=== PATIENT | female | born 1960 | race African-American/Black ===

== ENCOUNTER 2016-09-11 21:23 | Emergency (ER) | payer OTHER ==
[~2016-09-11] VITALS: Ht 172.7 cm; Wt 101.6 kg
[~2016-09-11 21:23] MED LIST: AMLODIPINE BESY10 MG ORAL; AMLODIPINE BESYL5 MG ORAL; ASPIRIN-LOW81 MG ORAL; AZITHROMYCIN250 MG ORAL; CARISOPRODOL350 MG ORAL; CIPROFLOXACIN500 M2 ORAL; CITALOPRAM HBR10 M1 ORAL; GUAIFENESIN-CO118 M1 ORAL; IBUPROFEN600 MG ORAL; IMDUR30 MG ORAL; LOVASTATIN40 MG ORAL; METRONIDAZOLE500 MG ORAL; NAPROXEN500 M2 ORAL; NORCO 5-325 TA1 EAC1 ORAL; NORCO1 E1 ORAL; OMEPRAZOLE20 M3 ORAL; OMEPRAZOLE40 M1 ORAL; PERCOCET 5-3251 EACH ORAL; PROPRANOLOL HCL10 MG ORAL; PROTONIX40 MG ORAL; RANITIDINE HCL150 M1 ORAL; ROBAXIN-750750 MG PO; SOMA350 MG PO; TYLENOL WITH C1 EACH ORAL; VASOTEC20 MG ORAL; ZOFRAN4 MG/5 ML ORAL; ZOLPIDEM TARTRAT5 MG ORAL
[2016-09-11] MEDS ORDERED: NS 55ml IV ONE (21:48)
[2016-09-11 22:01] LABS: APPEARANCE,URINE CLEAR; KETONES,URINE NEGATIVE (NEGATIVE); LEUKOCYTE ESTERASE ,URINE 3+ (NEGATIVE); NITRITE,URINE NEGATIVE (NEGATIVE); PH,URINE 6.5 (4.5-8.0); PROTEIN,URINE 2+ (NEGATIVE); UROBILINOGEN,URINE NORMAL MG/DL (0.0-1.0)
[2016-09-11 22:17] LABS: BACTERIA,URINE MODERATE /HPF; SQUAMOUS EPITHELIAL CELL,UR FEW /LPF (NONE/OCC)
[2016-09-11 22:18] LABS: YEAST,URINE FEW /HPF
[2016-09-11] MEDS ORDERED: Morphine Sulfate 4mg/ml Inj IVP ONE (22:45)
[2016-09-11 23:15] VITALS: BP 157/95
[2016-09-11 23:16] LABS: BASOPHILS % (AUTO) 0.7 % (0.0-2.0); EOSINOPHILS % (AUTO) 1.9 % (0.0-3.0); LYMPHOCYTES % (AUTO) 34.1 % (20.0-45.0); MEAN CORPUSCULAR HEMOGLOBIN 31.7 PG (27.0-31.0); MEAN CORPUSCULAR HGB CONC 34.6 G/DL (32.0-36.0); MEAN CORPUSCULAR VOLUME 92 FL (80-99); MONOCYTES % (AUTO) 5.3 % (1.0-10.0); PLATELET COUNT 243 K/UL (150-450); RED BLOOD COUNT 4.54 M/UL (4.20-5.40); RED CELL DISTRIBUTION WIDTH 11.8 % (11.6-14.8); WHITE BLOOD COUNT 9.1 K/UL (4.8-10.8)
[2016-09-11 23:26] LABS: ALANINE AMINOTRANSFERASE 15 U/L (3-33); ALBUMIN/GLOBULIN RATIO 1.7 (1.0-2.7); ANION GAP 14 (5-15); ASPARTATE AMINO TRANSFERASE 15 U/L (5-40); CALCIUM 9.4 mg/dL (8.6-10.2); CARBON DIOXIDE 30 mEQ/L (20-30); CHLORIDE 96 mEQ/L (98-107); CREATININE 0.9 mg/dL (0.5-0.9); GLOMERULAR FILTRATION RATE > 60 mL/min (>60); HEMOLYSIS 11; LIPASE 110 U/L (< 60); POTASSIUM 3.8 mEQ/L (3.4-4.9); SODIUM 140 mEQ/L (135-145); TOTAL PROTEIN 7.1 g/dL (6.6-8.7); TROPONIN I < 0.30 ng/mL (<=0.30)
[2016-09-12] VITALS (7 sets, daily range): BP systolic 126–153; BP diastolic 67–92
[2016-09-12] MEDS ORDERED: metroNIDAZOLE 500mg 100 ML IVPB ONE
[2016-09-12] MEDS ORDERED: HYDROmorphone 1mg/ml Carpuject ONE ×2 (00:11→06:22)
[2016-09-12] MEDS ORDERED: DiphenhydrAMINE 50mg/ml Inj ONE ×2 (00:12→06:22)
--- NOTE | 2016-09-12 00:45 | Emergency Room Report ---
History of Present Illness General Chief Complaint: Abdominal Pain Source: Patient Present Illness HPI 55 YO F with epigastric pain for 1 day. No change with eating. 04/08, non radiating. No nausea/vomiting or diarrhea or urinary complaints. History of chronic pancreatitis with multiple admissions. CT Apr 2016: "Findings compatible with mild acute pancreatitis involving the pancreatic tail. No evidence of associated necrosis, pseudocyst, or abscess. Findings overall less severe than on previous exam. Allergies: Coded Allergies: No Known Allergies (Unverified , 01/29/14) Patient History Past Medical History: other - pancreatitis, HTN Past Surgical History: none Pertinent Family History: none Social History: Denies: alcohol use, drug use, smoking Now: No Reviewed Nursing Documentation: PMH: Agreed, PSxH: Agreed Nursing Documentation-PMH Hx Cardiac Problems: Yes Hx Hypertension: Yes Hx Diabetes: Yes Hx Cancer: No Hx Gastrointestinal Problems: Yes - pancreatitis Hx Neurological Problems: No Review of Systems All Other Systems: negative except mentioned in HPI Physical Exam Vital Signs Date Time Temp Pulse Resp B/P Pulse Ox O2 Delivery O2 Flow Rate FiO2 09/11/16 21:27 97.9 98 16 153/94 100 Room Air Sp02 EP Interpretation: reviewed, normal General Appearance: normal inspection, well appearing, no apparent distress, alert, GCS 15, non-toxic, obese Head: normocephalic, atraumatic Eyes: bilateral eye EOMI, bilateral eye PERRL ENT: normal ENT inspection, hearing grossly normal, normal voice Neck: normal inspection, full range of motion, supple, no bony tend Respiratory: normal inspection, lungs clear, normal breath sounds, no respiratory distress, no retraction, no wheezing Cardiovascular #1: regular rate, rhythm, no edema Gastrointestinal: normal inspection, normal bowel sounds, soft, no guarding, no hernia, other - Mild epigastric ttp Genitourinary: no CVA tenderness Musculoskeletal: normal inspection, back normal, normal range of motion, Itzel' s Sign negative Neurologic: normal inspection, alert, oriented x3, responsive, claim attorney III-XII nml as tested, motor strength/tone normal, speech normal Psychiatric: normal inspection, judgement/insight normal, mood/affect normal Skin: normal inspection, normal color, no rash Lymphatic: normal inspection Medical Decision Making Diagnostic Impression: Primary Impression: Pancreatitis Qualified Codes: K86.1 - Other chronic pancreatitis Additional Impression: Abdominal pain Qualified Codes: R10.84 - Generalized abdominal pain ER Course Lipase elevated not as elevated as previous UA c/w UTI Patient required multiple rounds of IV narcotics IV Rocephin given for UTI I have low suspicion for abscess/pseudocyst given reassurance from Apr [address] CT and afebrile, no leukocytosis, normal H&H Endorsed to Dr Quintero for med surg admission at 116am Last Vital Signs Date Time Temp Pulse Resp B/P Pulse Ox O2 Delivery O2 Flow Rate FiO2 09/11/16 23:29 97.9 09/11/16 23:15 85 21 157/95 100 Room Air Status: improved Disposition: ADMITTED INPATIENT Condition: Serious Referrals: [facility],REFERRING (PCP) MALATHI CORDERO M.D. Sep 12, 2016 00:45
[2016-09-12] MEDS ORDERED: cefTRIAXone 1 GM in NS 55 ML IVPB ONE (01:15)
[2016-09-12] MEDS ORDERED: HYDROmorphone 1 MG, DiphenhydrAMINE 25 MG in NS 55 ML IVPB ONE ×4 (06:30)
[2016-09-12] MEDS ORDERED: Mylanta II UD 30ml ORAL PRN (08:00)
[2016-09-12] MEDS ORDERED: Nitroglycerin Subl 0.4mg tab (Bottle Of 25) SL PRN (08:00)
[2016-09-12] MEDS ORDERED: Morphine Sulfate 2mg/ml Inj IVP PRN (08:00)
[2016-09-12] MEDS ORDERED: D5 1/2NS 1,000 ML IV SCH (09:00)
[2016-09-12] MEDS ORDERED: Propranolol 10mg tab ORAL SCH (09:00)
[2016-09-12] MEDS ORDERED: Heparin 5000 units/ml inj SUBQ SCH (11:30)
[2016-09-12] MEDS ORDERED: Piperacillin/Tazobactam 3.375 GM in NS 110 ML IVPB SCH (14:00)
[2016-09-12] MEDS ORDERED: Zolpidem 5mg tab ORAL PRN (21:00)
[2016-09-12] MEDS ORDERED: Miralax 17gm pkt ORAL PRN (21:00)
--- NOTE | 2016-09-17 11:48 | Cardiology Report ---
APPROVED REPORT EKG Measurement Heart [id number] Normal sinus rhythm Nonspecific T wave abnormality Prolonged QT Abnormal ECG
== END 2016-09-12 13:04 | disposition other institution (70) ==
LOC: EMR 21:47
DX: K86.1 Other chronic pancreatitis (principal); R10.84 Generalized abdominal pain; E11.9 Type 2 diabetes mellitus without complications; I10 Essential (primary) hypertension
CPT/HCPCS: 36415; 80053; 81003; 83690; 84484; 85025; 87086; 93005; 99285; J0696; J1170; J1200; J1644; J2270; J2405

== ENCOUNTER 2016-09-29 09:44 | Emergency (ER) | payer OTHER ==
[~2016-09-29] VITALS: Ht 175.3 cm; Wt 95.3 kg
[2016-09-29] MEDS ORDERED: Morphine Sulfate 4mg/ml Inj IVP ONE (11:15)
[2016-09-29 11:44] LABS: BASOPHILS % (AUTO) 0.6 % (0.0-2.0); EOSINOPHILS % (AUTO) 0.9 % (0.0-3.0); LYMPHOCYTES % (AUTO) 32.5 % (20.0-45.0); MEAN CORPUSCULAR HEMOGLOBIN 30.9 PG (27.0-31.0); MEAN CORPUSCULAR VOLUME 94 FL (80-99); MONOCYTES % (AUTO) 6.9 % (1.0-10.0); NEUTROPHILS % (AUTO) 59.1 % (45.0-75.0); PLATELET COUNT 291 K/UL (150-450); RED BLOOD COUNT 4.89 M/UL (4.20-5.40); RED CELL DISTRIBUTION WIDTH 11.8 % (11.6-14.8)
[2016-09-29 11:45] LABS: APPEARANCE,URINE SLIGHTLY CLOUDY; KETONES,URINE NEGATIVE (NEGATIVE); LEUKOCYTE ESTERASE ,URINE 3+ (NEGATIVE); NITRITE,URINE NEGATIVE (NEGATIVE); PH,URINE 6 (4.5-8.0); PROTEIN,URINE 1+ (NEGATIVE); UROBILINOGEN,URINE NORMAL MG/DL (0.0-1.0)
[2016-09-29 12:17] LABS: ALANINE AMINOTRANSFERASE 18 U/L (3-33); ALBUMIN/GLOBULIN RATIO 1.3 (1.0-2.7); ANION GAP 18 (5-15); ASPARTATE AMINO TRANSFERASE 13 U/L (5-40); CALCIUM 9.7 mg/dL (8.6-10.2); CARBON DIOXIDE 25 mEQ/L (20-30); CHLORIDE 101 mEQ/L (98-107); GLOMERULAR FILTRATION RATE > 60 mL/min (>60); HEMOLYSIS 4; LIPASE 95 U/L (< 60); POTASSIUM 4.1 mEQ/L (3.4-4.9); SODIUM 144 mEQ/L (135-145)
[2016-09-29 12:20] LABS: SQUAMOUS EPITHELIAL CELL,UR MANY /LPF (NONE/OCC); WBC,URINE 20-30 /HPF (0 - 2)
[2016-09-29 12:21] LABS: BACTERIA,URINE MODERATE /HPF
[2016-09-29] MEDS ORDERED: LEVOFLOXACIN750 MG ORAL (12:33)
--- NOTE | 2016-09-29 12:53 | Emergency Room Report ---
History of Present Illness General Chief Complaint: Abdominal Pain Source: Patient Present Illness HPI 55YOF here with "same pain since I was here last" in Mid-august, allegedly from "chronic pancreatitis." I admitted this patient mid-August for "chronic pancreatitis" but patient walked out of ER before she was taken upstairs. She was formally admitted to [facility] but the hospitalist did not see patient or write a note. Patient walked out of ER before ER physician able to provide Abx for UTI for which she was also being treated/admitted. States had had same pain now, mostly left sided, now radiating to left flank assoc with dysuria, polyuria. Denies fever/chills, nausea/vomtiing, diarrhea. Appetite is normal. Allergies: Coded Allergies: No Known Allergies (Unverified , 01/29/14) Patient History Past Medical History: see triage record, old chart reviewed Past Surgical History: none Pertinent Family History: none Social History: Denies: alcohol use, drug use, smoking Now: No Immunizations: UTD Reviewed Nursing Documentation: PMH: Agreed, PSxH: Agreed Nursing Documentation-PMH Past Medical History: No History, Except For Hx Hypertension: Yes Hx Diabetes: Yes Hx Cancer: No Hx Gastrointestinal Problems: Yes - pancreatitis Hx Neurological Problems: No Review of Systems All Other Systems: negative except mentioned in HPI Physical Exam Vital Signs Date Time Temp Pulse Resp B/P Pulse Ox O2 Delivery O2 Flow Rate FiO2 09/29/16 10:01 97.9 109 16 131/75 98 Room Air Sp02 EP Interpretation: reviewed General Appearance: normal inspection, well appearing, no apparent distress, alert, GCS 15, non-toxic, obese Head: normocephalic, atraumatic Eyes: bilateral eye EOMI, bilateral eye PERRL ENT: normal ENT inspection, hearing grossly normal, normal voice Neck: normal inspection, full range of motion, supple, no bony tend Respiratory: normal inspection, lungs clear, normal breath sounds, no respiratory distress, no retraction, no wheezing Cardiovascular #1: regular rate, rhythm, no edema Gastrointestinal: normal inspection, normal bowel sounds, non tender, soft, no guarding, no hernia Genitourinary: CVA tenderness (L) Musculoskeletal: normal inspection, back normal, normal range of motion, Itzel' s Sign negative Neurologic: normal inspection, alert, oriented x3, responsive, services program manager III-XII nml as tested, motor strength/tone normal, speech normal Psychiatric: normal inspection, judgement/insight normal, mood/affect normal Skin: normal inspection, normal color, no rash Lymphatic: normal inspection Medical Decision Making Diagnostic Impression: Primary Impression: Pyelonephritis ER Course Left sided abd/flank pain VSS. Afebrile. Does not appear septic based on HPI, exam, review of serial VS Labs: Elevated lipase however downtrended from August - and unreliable to trend/ follow. CT recently did not show pseudocyst or abscess Leuks normal. H&H normal. UA grossly infected Possibly now pyelo from untreated UTI from mid-August after patient left AMA Improved after analgesia and IV Levofloxacin here Urine Cx pending DC with 9 days of oral levo Does not warrant admission for pyelo as is tolerating PO, no systemic signs or symptoms Advised GI followup for chronic pancreatitis DC home Last Vital Signs Date Time Temp Pulse Resp B/P Pulse Ox O2 Delivery O2 Flow Rate FiO2 09/29/16 10:01 97.9 109 16 131/75 98 Room Air Status: improved Disposition: HOME, SELF-CARE Condition: Improved Scripts Levofloxacin* (LEVOFLOXACIN*) 750 Mg Tablet 750 MG ORAL DAILY for 9 Days, #9 TAB Prov: MALATHI CORDERO M.D. 09/29/16 Patient Instructions: Pyelonephritis, Adult, [id number] Additional Instructions: - Take ALL antibiotics at home as prescribed - once daily for next 9 days at home. - Follow up with your primary care doctor for a GI referral for chronic pancreatitis MALATHI CORDERO M.D. Sep 29, 2016 12:53
[2016-09-29 14:00] VITALS: BP 125/70
== END 2016-09-29 14:36 | disposition home or self-care (01) ==
LOC: EMR 10:44
DX: N12 Tubulo-interstitial nephritis, not specified as acute or chronic (principal); K86.1 Other chronic pancreatitis; R10.9 Unspecified abdominal pain; I10 Essential (primary) hypertension; E11.9 Type 2 diabetes mellitus without complications
CPT/HCPCS: 36415; 80053; 81003; 83690; 85025; 87086; 87181; 96360; 96374; 99284; J1956; J2270

== ENCOUNTER 2018-08-19 10:44 | Inpatient (IN) | payer OTHER ==
[~2018-08-19] VITALS: Ht 175.3 cm; Wt 94.9 kg
[~2018-08-19 10:44] MED LIST changes: +LEVOFLOXACIN750 MG ORAL
[2018-08-19] MEDS ORDERED: UNOBMED (10:51)
--- NOTE | 2018-08-19 11:06 | NUR ---
ED Nurse Note: Pt came in from home due to RUQ abdominal pain with n/v/d x 3 days. Pain 10/10. Emesis is saliva and clear fluid. Last bowel movement was this morning. Pt has hx of Pancreatitis and suspecting "I think it is pancreatitis". AOx4, VSS bradley. Will cont to monitor.
--- NOTE | 2018-08-19 11:19 | Emergency Room Report ---
History of Present Illness General Chief Complaint: Abdominal Pain Source: Patient Present Illness HPI Patient has a history of hypertension and diabetes. Patient presents with abdominal pain and vomiting. She can't keep down liquids. She states when this happened a year ago she was told she had pancreatitis. She denies any fevers or chills. She's not vomiting blood. She denies melena. There is no dysuria. Pain is 10/10 at this time epigastric, not radiating. No chest pain, palpitations, dysuria, abdominal pain, shortness of breath, depression, visual changes, headache. Patient has a history of hypertension and diabetes. She is not taking medication for her diabetes. Patient with similar presentation admitted in April 2016. Discharge diagnoses: 1. Acute pancreatitis. 2. Hypertension. 3. Obesity. 4. Seizure disorder. Allergies: Coded Allergies: No Known Allergies (Unverified , 01/29/14) Patient History Past Medical History: see triage record, old chart reviewed Social History: Reports: smoking; Denies: alcohol use, drug use - In the past Social History Narrative Lives by herself Last Menstrual Period: menopause Reviewed Nursing Documentation: PMH: Agreed; PSxH: Agreed Nursing Documentation-PMH Past Medical History: No History, Except For Hx Hypertension: Yes Hx Diabetes: Yes Hx Cancer: No Hx Gastrointestinal Problems: Yes - pancreatitis Hx Neurological Problems: No Review of Systems All Other Systems: negative except mentioned in HPI Physical Exam Vital Signs Date Time Temp Pulse Resp B/P (MAP) Pulse Ox O2 Delivery O2 Flow Rate FiO2 08/19/18 10:48 97.5 95 18 159/98 100 Room Air Sp02 EP Interpretation: reviewed, normal General Appearance: well appearing, no apparent distress, GCS 15 Head: normocephalic Eyes: bilateral eye normal inspection, bilateral eye PERRL ENT: moist mucus membranes Neck: supple Respiratory: lungs clear, normal breath sounds Cardiovascular #1: regular rate, rhythm Cardiovascular #2: 2+ radial (R) Gastrointestinal: normal inspection, no mass, non-distended, no guarding, no rebound, tenderness - Epigastric, decreased bowel sounds Genitourinary: no CVA tenderness Musculoskeletal: back normal, normal range of motion Neurologic: alert, oriented x3, grossly normal Psychiatric: depressed affect Skin: normal inspection, warm/dry Medical Decision Making Diagnostic Impression: Primary Impression: Acute pancreatitis Qualified Codes: K85.90 - Acute pancreatitis without necrosis or infection, unspecified Additional Impression: Dehydration ER Course Patient presents with epigastric pain nausea and vomiting. Differential includes gastritis, pancreatitis, gallbladder disease, gastroenteritis amongst others. Evaluation will be with labs, EKG and chest and abdominal films. Patient will be treated with IV hydration, Zofran Pepcid and Dilaudid. Chest x-ray no infiltrates. Abdominal film using bowel gas pattern. CBC normal with elevated hemoglobin and hematocrit. CMP unremarkable. Lipase elevated. Still requiring analgesia. Retching has improved. Admit med Dr. Escobar. Laboratory Tests Test 08/19/18 11:15 08/19/18 12:00 White Blood Count 10.3 K/UL (4.8-10.8) Red Blood Count 5.26 M/UL (4.20-5.40) Hemoglobin 16.3 G/DL (12.0-16.0) H Hematocrit 48.9 % (37.0-47.0) H Mean Corpuscular Volume 93 FL (80-99) Mean Corpuscular Hemoglobin 31.1 PG (27.0-31.0) H Mean Corpuscular Hemoglobin Concent 33.4 G/DL (32.0-36.0) Red Cell Distribution Width 11.3 % (11.6-14.8) L Platelet Count 286 K/UL (150-450) Mean Platelet Volume 6.9 FL (6.5-10.1) Neutrophils (%) (Auto) 64.3 % (45.0-75.0) Lymphocytes (%) (Auto) 27.7 % (20.0-45.0) Monocytes (%) (Auto) 7.2 % (1.0-10.0) Eosinophils (%) (Auto) 0.1 % (0.0-3.0) Basophils (%) (Auto) 0.7 % (0.0-2.0) Prothrombin Time 10.1 SEC (9.30-11.50) Prothrombin Time INR 1.0 (0.9-1.1) PTT 24 SEC (23-33) Sodium Level 138 MMOL/L (136-145) Potassium Level 3.6 MMOL/L (3.5-5.1) Chloride Level 101 MMOL/L (98-107) Carbon Dioxide Level 26 MMOL/L (21-32) Anion Gap 11 mmol/L (5-15) Blood Urea Nitrogen 14 mg/dL (7-18) Creatinine 1.1 MG/DL (0.55-1.30) Estimate Glomerular Filtration Rate > 60 mL/min (>60) Glucose Level 134 MG/DL (74-106) H Calcium Level 10.4 MG/DL (8.5-10.1) H Total Bilirubin 0.6 MG/DL (0.2-1.0) Aspartate Amino Transferase (AST) 12 U/L (15-37) L Alanine Aminotransferase (ALT) 28 U/L (12-78) Alkaline Phosphatase 70 U/L (46-116) Troponin I 0.000 ng/mL (0.000-0.056) Total Protein 9.0 G/DL (6.4-8.2) H Albumin 4.5 G/DL (3.4-5.0) Globulin 4.5 g/dL Albumin/Globulin Ratio 1.0 (1.0-2.7) Lipase 658 U/L (73-393) H Urine Color Pale yellow Urine Appearance Clear Urine pH 7 (4.5-8.0) Urine Specific [place] 1.005 (1.005-1.035) Urine Protein 2+ (NEGATIVE) H Urine Glucose (UA) Negative (NEGATIVE) Urine Ketones Negative (NEGATIVE) Urine Blood 3+ (NEGATIVE) H Urine Nitrite Negative (NEGATIVE) Urine Bilirubin Negative (NEGATIVE) Urine Urobilinogen Normal MG/DL (0.0-1.0) Urine Leukocyte Esterase Negative (NEGATIVE) Urine RBC 5-10 /HPF (0 - 2) H Urine WBC 0 /HPF (0 - 2) Urine Squamous Epithelial Cells Moderate /LPF (NONE/OCC) H Urine Bacteria Occasional /HPF (NONE) EKG Diagnostic Results Rate: normal Rhythm: NSR ST Segments: no acute changes - Right bundle-branch bloc left atrial enlargement left axis deviation Rhythm Strip Diag. Results EP Interpretation: yes Rhythm: NSR, no PVC's, no ectopy Chest X-Ray Diagnostic Results Chest X-Ray Diagnostic Results : Chest X-Ray Ordered: Yes # of Views/Limited/Complete: 1 View Indication: Other EP Interpretation: Yes Interpretation: no consolidation, no effusion, no pneumothorax Impression: No acute disease Electronically Signed by: Electronically signed by Mark Monique MD Other X-Ray Diagnostic Results Other X-Ray Diagnostic Results : X-Ray ordered: Abdomen # of Views/Limited Vs Complete: 1 View Indication: Pain Interpretation: nonspecific bowel gas, no sbo, other - No masses or calcifications Impression: No acute disease Electronically Signed by: Electronically signed by Mark Monique MD Last Vital Signs Date Time Temp Pulse Resp B/P (MAP) Pulse Ox O2 Delivery O2 Flow Rate FiO2 08/19/18 10:48 97.5 95 18 159/98 100 Room Air Status: improved Disposition: ADMITTED INPATIENT Condition: Serious Mark Monique MD Aug 19, 2018 11:19
[2018-08-19] MEDS ORDERED: DiphenhydrAMINE 50mg/ml Inj IVP ONE (11:30)
[2018-08-19] MEDS ORDERED: Metoclopramide 10mg/2ml Inj IVP ONE (11:30)
[2018-08-19] MEDS ORDERED: Hydromorphone 0.5mg/0.5ml inj IVP ONE ×2 (11:30→13:15)
[2018-08-19 11:31] LABS: BASOPHILS % (AUTO) 0.7 % (0.0-2.0); EOSINOPHILS % (AUTO) 0.1 % (0.0-3.0); HEMATOCRIT 48.9 % (37.0-47.0); HEMOGLOBIN 16.3 G/DL (12.0-16.0); LYMPHOCYTES % (AUTO) 27.7 % (20.0-45.0); MEAN CORPUSCULAR VOLUME 93 FL (80-99); MONOCYTES % (AUTO) 7.2 % (1.0-10.0); NEUTROPHILS % (AUTO) 64.3 % (45.0-75.0); PLATELET COUNT 286 K/UL (150-450); RED BLOOD COUNT 5.26 M/UL (4.20-5.40); RED CELL DISTRIBUTION WIDTH 11.3 % (11.6-14.8); WHITE BLOOD COUNT 10.3 K/UL (4.8-10.8)
[2018-08-19 11:36] VITALS: BP 160/86
[2018-08-19 11:36] LABS: ANION GAP 11 mmol/L (5-15); BLOOD UREA NITROGEN 14 mg/dL (7-18); CALCIUM 10.4 MG/DL (8.5-10.1); CARBON DIOXIDE 26 MMOL/L (21-32); CHLORIDE 101 MMOL/L (98-107); CREATININE 1.1 MG/DL (0.55-1.30); POTASSIUM 3.6 MMOL/L (3.5-5.1); SODIUM 138 MMOL/L (136-145)
[2018-08-19 11:41] LABS: ALANINE AMINOTRANSFERASE 28 U/L (12-78); ALBUMIN 4.5 G/DL (3.4-5.0); ALKALINE PHOSPHATASE 70 U/L (46-116); ASPARTATE AMINO TRANSFERASE 12 U/L (15-37); BILIRUBIN,TOTAL 0.6 MG/DL (0.2-1.0)
[2018-08-19 12:29] LABS: APPEARANCE,URINE CLEAR; BILIRUBIN, URINE NEGATIVE (NEGATIVE); COLOR,URINE PALE YELLOW; GLUCOSE, URINE (UA) NEGATIVE (NEGATIVE); KETONES,URINE NEGATIVE (NEGATIVE); LEUKOCYTE ESTERASE ,URINE NEGATIVE (NEGATIVE); NITRITE,URINE NEGATIVE (NEGATIVE); PH,URINE 7 (4.5-8.0); PROTEIN,URINE 2+ (NEGATIVE); UROBILINOGEN,URINE NORMAL MG/DL (0.0-1.0)
--- NOTE | 2018-08-19 12:52 | Diagnostic Imaging Report ---
Indication: Abdominal pain Technique: Supine view of the abdomen Comparison: none Findings: Bowel gas pattern is unremarkable. There are degenerative changes of the lumbar spine. No unusual calcifications or masses Impression: No acute process
--- NOTE | 2018-08-19 12:53 | Diagnostic Imaging Report ---
Indication: Shortness of breath Technique: One view of the chest Comparison: 06/20/2015 Findings: Lungs and pleural spaces are clear. Heart size is normal Impression: No acute process
--- NOTE | 2018-08-19 13:10 | NUR ---
ED Nurse Note: Pt states " pain is still the same", ERMD notified. Awaiting for further orders.
[2018-08-19 13:43] VITALS: BP 169/95
[2018-08-19] MEDS ORDERED: HYDROmorphone 1mg/ml Carpuject IVP ONE (15:15)
[2018-08-19 15:28] VITALS: BP 159/93
--- NOTE | 2018-08-19 16:06 | NUR ---
ED Nurse Note: Reprot given to Neda Brito at ext [phone]. Pt to be transfered to room 314-1 on [facility] per protocol with all belongings.
--- NOTE | 2018-08-19 16:30 | NUR ---
NURSE NOTES: Patient arrived on unit via wheelchair. Transferred to bed without incident, tolerated well Patient is stable, no s/s acute distress. Patient complains of pain. Awaiting orders from MD, will give pain medication as ordered. Skin is clean, dry, and intact. All belongings accounted for. Patient oriented to room, unit, call light, and nurses. Patient is comfortable in bed in locked position and call light within reach. Will continue to monitor.
[2018-08-19 16:37] VITALS: BP 146/82
[2018-08-19] MEDS ORDERED: DiphenhydrAMINE 50mg/ml Inj IVP PRN (16:45)
[2018-08-19] MEDS ORDERED: Norco 5mg/325mg tab ORAL PRN (16:45)
[2018-08-19] MEDS: D5NS 1,000 ML IV SCH (17:40)
--- NOTE | 2018-08-19 18:00 | NUR ---
NURSE NOTES: abdominal ultrasound being done at bedside. patient is stable. Will continue to monitor.
--- NOTE | 2018-08-19 19:54 | NUR ---
HAND-OFF: Report given to Rowdy LIU. Patient is stable.
--- NOTE | 2018-08-19 19:59 | NUR ---
NURSE NOTES: Received report from NOE Brito. Patient A&Ox4, on room air. No signs of distress or labored breathing. IV intact, patent, and infusing IV fluids. Complaining of pain. Bed in lowest position with call light in reach. Will continue with plan of care.
[2018-08-19 20:00] VITALS: BP 138/85
[2018-08-19] MEDS: Heparin 5000 units/ml inj SUBQ SCH (21:47)
[2018-08-19] MEDS ORDERED: HYDROmorphone 1mg/ml Carpuject IVP SCH (22:45)
[2018-08-20] VITALS: BP 162/90
[2018-08-20] MEDS: D5NS 1,000 ML IV SCH ×3 (02:51→15:33)
--- NOTE | 2018-08-20 08:03 | NUR ---
HAND-OFF: Report given to NOE Hazel.
--- NOTE | 2018-08-20 08:08 | NUR ---
CASE MANAGEMENT:REVIEW 57 YR OLD FEMALE FROM HOME CC: ABDOMINAL PAIN, N/V X3 DAYS SI: ACUTE PANCREATITIS 97.5 95 18 159/98 100% ON RA LIPASE+658 IS: IV REGLAN X1 IV PEPCID X1 IV DILAUDID X2 1L NS BOLUS X2 IV BENADRYL X1 CHEST AND ABDOMINAL XRAY : TO MED[facility]
[2018-08-20 08:09] LABS: EOSINOPHILS % (AUTO) 0.3 % (0.0-3.0); HEMATOCRIT 43.1 % (37.0-47.0); HEMOGLOBIN 14.8 G/DL (12.0-16.0); LYMPHOCYTES % (AUTO) 30.8 % (20.0-45.0); MEAN CORPUSCULAR VOLUME 93 FL (80-99); MONOCYTES % (AUTO) 8.2 % (1.0-10.0); NEUTROPHILS % (AUTO) 59.7 % (45.0-75.0); PLATELET COUNT 268 K/UL (150-450); RED BLOOD COUNT 4.62 M/UL (4.20-5.40); RED CELL DISTRIBUTION WIDTH 11.3 % (11.6-14.8); WHITE BLOOD COUNT 7.8 K/UL (4.8-10.8)
--- NOTE | 2018-08-20 08:12 | NUR ---
NURSE NOTES: Pt awake. Call light is in reach. No facial grimace of pain. Call light is in reach. Current plan of care will be followed. Commode placed at bedside by outgoing nurse, due to pt urinating in basin. Remains NPO
--- NOTE | 2018-08-20 08:28 | History & Physical ---
History and Physical History & Physicial seen and examined. Dictation completed today on 828 AM Brody Escobar MD Aug 20, 2018 08:28
--- NOTE | 2018-08-20 08:29 | General Progress Note ---
Assessment/Plan Status: stable Assessment/Plan Full Dictatino in progress 1- DC Dilaudid 2- Start Morphin PRN 3- Abd CT Subjective Allergies: Coded Allergies: No Known Allergies (Unverified , 01/29/14) Objective Last 24 Hour Vital Signs Date Time Temp Pulse Resp B/P (MAP) Pulse Ox O2 Delivery O2 Flow Rate FiO2 08/20/18 00:00 98.3 64 18 162/90 (114) 97 08/19/18 21:00 Room Air 08/19/18 20:00 98.2 65 18 138/85 (102) 96 08/19/18 16:37 98.3 66 18 146/82 (103) 96 08/19/18 16:37 Room Air 08/19/18 16:05 97.5 76 20 159/93 97 Room Air 08/19/18 15:37 97.5 08/19/18 15:28 76 20 159/93 97 08/19/18 13:43 97.5 66 21 169/95 100 Room Air 08/19/18 13:43 97.5 08/19/18 12:02 97.5 08/19/18 11:37 104 20 Room Air 08/19/18 11:36 97.5 104 20 160/86 100 Room Air 08/19/18 10:48 97.5 95 18 159/98 100 Room Air Intake and Output 08/19/18 08/20/18 19:00 07:00 Intake Total 1300 ml Balance 1300 ml Intake IV Total 1300 ml # Voids 3 5 Laboratory Tests 08/19/18 11:15: White Blood Count 10.3, Red Blood Count 5.26, Hemoglobin 16.3H, Hematocrit 48.9H , Mean Corpuscular Volume 93, Mean Corpuscular Hemoglobin 31.1H, Mean Corpuscular Hemoglobin Concent 33.4, Red Cell Distribution Width 11.3L, Platelet Count 286, Mean Platelet Volume 6.9, Neutrophils (%) (Auto) 64.3, Lymphocytes (%) (Auto) 27.7, Monocytes (%) (Auto) 7.2, Eosinophils (%) (Auto) 0.1, Basophils (%) (Auto) 0.7, Prothrombin Time 10.1, Prothromb Time International Ratio 1.0, Activated Partial Thromboplast Time 24, Sodium Level 138, Potassium Level 3.6, Chloride Level 101, Carbon Dioxide Level 26, Anion Gap 11, Blood Urea Nitrogen 14, Creatinine 1.1, Estimat Glomerular Filtration Rate > 60, Glucose Level 134H, Calcium Level 10.4H, Total Bilirubin 0.6, Aspartate Amino Transf (AST/SGOT) 12L, Alanine Aminotransferase (ALT/SGPT) 28, Alkaline Phosphatase 70, Troponin I 0.000, Total Protein 9.0H, Albumin 4.5, Globulin 4.5, Albumin/Globulin Ratio 1.0, Lipase 658H 08/19/18 12:00: Urine Color Pale yellow, Urine Appearance Clear, Urine pH 7, Urine Specific [place] 1.005, Urine Protein 2+H, Urine Glucose (UA) Negative, Urine Ketones Negative, Urine Blood 3+H, Urine Nitrite Negative, Urine Bilirubin Negative, Urine Urobilinogen Normal, Urine Leukocyte Esterase Negative, Urine RBC 5-10H, Urine WBC 0, Urine Squamous Epithelial Cells ModerateH, Urine Bacteria Occasional 08/20/18 06:46: White Blood Count 7.8, Red Blood Count 4.62, Hemoglobin 14.8, Hematocrit 43.1, Mean Corpuscular Volume 93, Mean Corpuscular Hemoglobin 32.1H, Mean Corpuscular Hemoglobin Concent 34.4, Red Cell Distribution Width 11.3L, Platelet Count 268, Mean Platelet Volume 6.6, Neutrophils (%) (Auto) 59.7, Lymphocytes (%) (Auto) 30.8, Monocytes (%) (Auto) 8.2, Eosinophils (%) (Auto) 0.3, Basophils (%) (Auto ) 1.0, Sodium Level [Pending], Potassium Level [Pending], Chloride Level [ Pending], Carbon Dioxide Level [Pending], Blood Urea Nitrogen [Pending], Creatinine [Pending], Estimat Glomerular Filtration Rate [Pending], Glucose Level [Pending], Calcium Level [Pending], Lipase [Pending], Amylase Level [ Pending] Height (Feet): 5 Height (Inches): 9.00 Weight (Pounds): 209 Brody Escobar MD Aug 20, 2018 08:29
[2018-08-20] MEDS ORDERED: Isovue-300 100ml vial INJ PRN (08:30)
[2018-08-20 08:38] LABS: AMYLASE 214 U/L (25-115); ANION GAP 12 mmol/L (5-15); BLOOD UREA NITROGEN 9 mg/dL (7-18); CALCIUM 8.8 MG/DL (8.5-10.1); CARBON DIOXIDE 24 MMOL/L (21-32); CHLORIDE 103 MMOL/L (98-107); CREATININE 0.9 MG/DL (0.55-1.30); POTASSIUM 3.5 MMOL/L (3.5-5.1); SODIUM 139 MMOL/L (136-145)
--- NOTE | 2018-08-20 09:06 | Diagnostic Imaging Report ---
Indication: Abdominal pain Technique: Lozano-scale and duplex images of the upper abdomen were obtained. Doppler interrogation of the pancreatic vessels Comparison: 05/09/2016, CT scan 05/18/2016 Findings: Gallbladder is unremarkable, without stones, wall thickening, nor pericholecystic fluid. Sonographic Shen's sign is negative. Common bile duct measures 3 mm in diameter. No intrahepatic biliary ductal dilatation. Liver demonstrates normal echogenicity, no focal abnormality. Portal vein and hepatic veins are patent. The pancreas is heterogeneous. The pancreatic duct is ectatic, measuring 5 mm in diameter. Spleen is unremarkable. Left kidney measures 12.5 cm in length. Right kidney measures 11.2 cm length. Both kidneys demonstrate normal echogenicity. There is no hydronephrosis. Small cysts are seen in the kidneys bilaterally, also demonstrated on prior CT scan.. Non-aneurysmal abdominal aorta . Impression: Somewhat heterogeneous pancreas. This may indicate acute pancreatitis, or could be related to prior episodes of pancreatitis. Correlate with laboratory and clinical findings Ectatic pancreatic duct, likely related to prior episodes of pancreatitis as well. Negative for gallstones or dilated bile ducts.
[2018-08-20] MEDS: Morphine Sulfate 2mg/ml Inj(IV/IM USE ONLY) IVP PRN ×2 (09:12→13:02)
[2018-08-20] MEDS: Pantoprazole Inj IVP SCH (09:13)
[2018-08-20] MEDS: Heparin 5000 units/ml inj SUBQ SCH ×2 (09:14→21:55)
[2018-08-20] MEDS: Metoclopramide 10mg/2ml Inj IVP PRN ×2 (10:47→18:11)
--- NOTE | 2018-08-20 12:50 | NUR ---
*-* INSURANCE *-* CLINICALS, REVIEW AND INTERQUAL FAXED TO: LOCATED WITHIN [facility]\ P- [phone] F- [phone]...( FAX THE REVIEW ONLY) & [place] P- [phone] F- [phone] (FAX REVIEW/CLINICAL)
--- NOTE | 2018-08-20 13:56 | Diagnostic Imaging Report ---
Clinical Indication: Abdominal pain, nausea vomiting and diarrhea Technique: Patient ingested oral contrast. IV administration nonionic contrast. Venous phase spiral acquisition obtained through the abdomen and pelvis. Multiplanar reconstructions were generated. Total dose length product 2198.7 mGycm. CTDIvol(s) 21.91,28.5 mGy. Dose reduction achieved using automated exposure control Comparison: 05/18/2016; also abdominal sonogram 08/19/2018 Findings: There is equivocal minimal infiltration of the fat surrounding the uncinate process of the pancreas. The pancreas otherwise appears unremarkable, with sharp margins and no other evidence of peripancreatic inflammation. There is normal enhancement of the entire pancreas The inflammatory changes that were evident on the prior study are no longer present. The pancreatic duct appears normal in caliber The gallbladder, bile ducts are unremarkable. The liver demonstrates scattered subtle subcentimeter low-attenuation lesions which are too small to characterize. The spleen, adrenals are unremarkable. A 4 mm calcification is seen in a right lower pole calyx, evident previously but perhaps larger and more prominent currently. A 2 mm calcification is seen in the left interpolar region calyx, likewise evident previously but more prominent currently. Bilateral renal cortical and parapelvic cysts are again demonstrated, unchanged. No ureteral calculi, hydronephrosis, or hydroureter demonstrated. There is a 4.8 cm unilocular simple cyst in the right ovary, bilateral small parapelvic cysts are again demonstrated. Previously 3.4 cm. The uterus and left adnexal region are unremarkable. There are a few colonic diverticula. The appendix is normal. Contrast is seen throughout the entirety of the small bowel, reaching the colon. No small bowel distention or small bowel wall thickening. No free or loculated intraperitoneal gas or fluid. The distal esophagus, stomach, duodenum are unremarkable. The included lung bases are clear. The bones demonstrate degenerative lumbar spondylosis changes. Impression: Minimal of the fat surrounding only the uncinate process of the pancreas, could indicate focal or very early nonnecrotizing pancreatitis in the appropriate clinical setting. Note that previously demonstrated (04/2016) more extensive changes of acute pancreatitis have resolved in the interim. No significant pancreatic ductal ectasia described on recent sonogram was less evident on this study, may have been artifactual on that exam. No associated fluid collection or extraluminal gas No acute process otherwise 4.8 cm unilocular right ovarian simple cyst, increase in size from prior exam of 05/18/2016. Further evaluation with pelvic sonography is recommended Bilateral nonobstructive intrarenal calculi Colonic diverticulosis. No evidence of diverticulitis Incidental finding of degenerative spondylosis, bilateral renal cortical and parapelvic cysts The CT scanner at [facility] is accredited by the [employer] and the scans are performed using protocols designed to limit radiation exposure to as low as reasonably achievable to attain images of sufficient resolution adequate for diagnostic evaluation.
[2018-08-20] MEDS: HYDROcodone/Acetamin 10/325 tab ORAL PRN (15:32)
--- NOTE | 2018-08-20 15:34 | NUR ---
NURSE NOTES: Pt provided with [employer] 10/325 scanner is not working
--- NOTE | 2018-08-20 15:36 | NUR ---
medication verified with Primo LIU
--- NOTE | 2018-08-20 15:45 | History and Physical Report ---
DATE OF ADMISSION: 08/19/2018 SOURCE OF INFORMATION: The patient and EMR. HISTORY OF PRESENT ILLNESS: The patient is a 57-year-old female, reportedly prior history of pancreatitis, presented with worsening pain in the upper abdomen for 1 or 2 days. The patient denies history of alcoholism. The patient gives prior history of the gallstone as a cause of pancreatitis based on the evaluation in the [facility] workup. At the time of evaluation, the patient denies any nausea or vomitus. Denies any diarrhea or constipation. Denies any abnormal bleeding. REVIEW OF SYSTEMS: All 14 elements of review of systems reviewed. Pertinent positives and negatives as above. PAST SURGICAL HISTORY: . PAST MEDICAL HISTORY: Biliary pancreatitis, hypertension. MEDICATIONS: Current hospital medications including amlodipine, Protonix, heparin subcutaneous. SOCIAL HISTORY: The patient lives by herself. Has 2 children. Denies history of alcoholism or illicit drug abuse. Positive for tobacco use on and off for the last 20 to 30 years. LABORATORY AND DIAGNOSTIC DATA: Imaging dated August 19, 2018 shows the chest x-ray negative for any acute pathology and abdominal x-ray also is unremarkable for acute pathology. PHYSICAL EXAMINATION: VITAL SIGNS: Blood pressure 160/100, respiratory rate 18, temperature 98.2, pulse oximetry 98% on room HEENT: Atraumatic and normocephalic. CHEST: Clear to auscultation. HEART: S1 and S2. Regular rate and rhythm. ABDOMEN: Soft. No organomegaly. MUSCULOSKELETAL: No gross motor or sensory deficits. NEUROLOGIC: Awake, alert, and oriented x3. LABORATORY DATA: Dated August 19, 2018, WBC 10.3, hemoglobin 16.3, platelet of 286. Lipase 658. Sodium 138, potassium 3.8, BUN 14, and creatinine 1.1. ASSESSMENT AND PLAN: 1. Acute pancreatitis, etiology unknown. 2. Hypertension. 3. Gastrointestinal and deep vein thrombosis prophylaxis. PLAN OF CARE: 1. We will keep the patient NPO. 2. Consult GI, Dr. Rubio. 3. Continue with pain management. COMMENTS: Time of this dictation does not reflect the actual time of encounter. Brody Escobar M.D. DR: Noe JOB#: [id number] CC:
--- NOTE | 2018-08-20 18:20 | NUR ---
NURSE NOTES: phoned made aware that pt is complaining of unresolved pain. Abdomen is soft bowel sounds are present , Pt is complaining of gas pain" Is it too early for pain medication my stomach is burning gas is moving all around. " Dr made aware that Morphine has been giving complained pain 02/06 and states pain remains unrelieved. [place] 10/ given pt stated it went down 1/2 from 6 to 5 1/2. clear liquid diet given " This made my stomach burn. " Dr gave orders to d/c Morphine change order to Toradal 30 mg po q12 hours. Tums per facility protocol. Dr Rubio to follow up with pt
[2018-08-20] MEDS: Tums 500mg ORAL PRN (19:07)
[2018-08-20 20:00] VITALS: BP 167/102
[2018-08-20] MEDS: Ketorolac 30mg Inj IV PRN (20:23)
--- NOTE | 2018-08-20 20:33 | NUR ---
NURSE NOTES: Pt currently laying down , no further moans once informed that Morphine was discontinued. per pt " Well if they aint givingh me nothing for pain I can go home" New pain medications explained x 3
--- NOTE | 2018-08-20 20:35 | NUR ---
HAND-OFF: Report given to Armando LIU.
[2018-08-20] MEDS ORDERED: Ketorolac 30mg Inj IV SCH (21:00)
--- NOTE | 2018-08-20 21:05 | NUR ---
NURSE NOTES: Pt B/P 166/110, reassessed B/P 167/102. MD notified, orders carried out.
[2018-08-20] MEDS: Zolpidem 5mg tab ORAL PRN (21:56)
--- NOTE | 2018-08-20 22:30 | NUR ---
NURSE NOTES: Received report from Yasemin LIU. Pt A&O x4, laying semi-fowlers in bed. Pt c/o constant pain in the abdomen, pain medication given per MD order. Pt on RA, denies SOB. IV site dry & intact, infusing fluids. Pt c/o trouble sleeping, MD notified & orders carried out. Call light in reach, bed in lowest position, side rails up x2. Will continue to monitor pt.
[2018-08-21] VITALS: BP 152/92
[2018-08-21] MEDS: HYDROcodone/Acetamin 10/325 tab ORAL PRN ×3 (02:14→17:37)
[2018-08-21 04:00] VITALS: BP 146/99
[2018-08-21] MEDS: Tums 500mg ORAL PRN (05:44)
[2018-08-21] MEDS: D5NS 1,000 ML IV SCH ×2 (06:11→18:45)
--- NOTE | 2018-08-21 07:15 | NUR ---
HAND-OFF: Report given to Yasemin LIU. Pt is stable.
[2018-08-21 07:21] LABS: BASOPHILS % (AUTO) 0.9 % (0.0-2.0); EOSINOPHILS % (AUTO) 1.5 % (0.0-3.0); HEMATOCRIT 46.2 % (37.0-47.0); HEMOGLOBIN 16.1 G/DL (12.0-16.0); LYMPHOCYTES % (AUTO) 28.5 % (20.0-45.0); MEAN CORPUSCULAR VOLUME 91 FL (80-99); MONOCYTES % (AUTO) 8.3 % (1.0-10.0); NEUTROPHILS % (AUTO) 60.8 % (45.0-75.0); PLATELET COUNT 271 K/UL (150-450); RED BLOOD COUNT 5.09 M/UL (4.20-5.40); RED CELL DISTRIBUTION WIDTH 10.8 % (11.6-14.8); WHITE BLOOD COUNT 7.5 K/UL (4.8-10.8)
--- NOTE | 2018-08-21 07:26 | NUR ---
NURSE NOTES: Pt laying in side line position requested pain medication from outgoing nurse. Continues to complain of gas like pain. Pt has not had a BM yet. Encouraged to ambulate. Call light is in reach.
[2018-08-21 08:13] LABS: AMYLASE 221 U/L (25-115); ANION GAP 12 mmol/L (5-15); BLOOD UREA NITROGEN 6 mg/dL (7-18); CALCIUM 9.8 MG/DL (8.5-10.1); CARBON DIOXIDE 25 MMOL/L (21-32); CHLORIDE 101 MMOL/L (98-107); CREATININE 0.9 MG/DL (0.55-1.30); POTASSIUM 3.1 MMOL/L (3.5-5.1); SODIUM 138 MMOL/L (136-145)
[2018-08-21] MEDS: Metoprolol 25mg tab ORAL SCH (09:21)
[2018-08-21] MEDS: Pantoprazole Inj IVP SCH (09:21)
[2018-08-21] MEDS: Ketorolac 30mg Inj IV PRN ×2 (09:23→21:52)
[2018-08-21] MEDS: Heparin 5000 units/ml inj SUBQ SCH ×2 (09:25→21:54)
[2018-08-21] MEDS: Metoclopramide 10mg/2ml Inj IVP PRN ×2 (09:26→14:41)
--- NOTE | 2018-08-21 12:46 | NUR ---
NURSE NOTES: Pt is comfortable stated the combination of Tramadol and reglan relieved her pain. Call light is in reach , Bowel sounds present, abdomen soft, continues to complain of pain upper abdominal area. Remains on a clear liquid diet
--- NOTE | 2018-08-21 14:52 | General Progress Note ---
Assessment/Plan Assessment/Plan S: I am ok O: Postive for residual abd pain . Partial toelrate to PO food. PHYSICAL EXAMINATION: HEENT: Atraumatic and normocephalic. CHEST: Clear to auscultation. HEART: S1 and S2. Regular rate and rhythm. ABDOMEN: Soft. No organomegaly.MUSCULOSKELETAL: No gross motor or sensory deficits. NEUROLOGIC: Awake, alert, and oriented x3. Hospital meds: including but not limited to Toradol 30 mg BID ASSESSMENT AND PLAN: 1. Acute pancreatitis, etiology unknown. 2. Hypertension. 3. Gastrointestinal and deep vein thrombosis prophylaxis. PLAN OF CARE: Advance Diet from Liquid GI to follow Subjective Allergies: Coded Allergies: No Known Allergies (Unverified , 01/29/14) Objective Last 24 Hour Vital Signs Date Time Temp Pulse Resp B/P (MAP) Pulse Ox O2 Delivery O2 Flow Rate FiO2 08/21/18 09:22 97 158/100 08/21/18 09:21 94 158/100 08/21/18 09:00 Room Air 08/21/18 04:00 99.2 93 18 146/99 (115) 97 08/21/18 00:00 99.3 67 18 152/92 (112) 96 08/20/18 21:00 Room Air 08/20/18 20:00 98.5 89 18 167/102 (123) 95 Intake and Output 08/20/18 08/21/18 19:00 07:00 Intake Total 700 ml 900 ml Balance 700 ml 900 ml Intake IV Total 700 ml 900 ml Laboratory Tests 08/21/18 06:50: White Blood Count 7.5, Red Blood Count 5.09, Hemoglobin 16.1H, Hematocrit 46.2, Mean Corpuscular Volume 91, Mean Corpuscular Hemoglobin 31.6H, Mean Corpuscular Hemoglobin Concent 34.8, Red Cell Distribution Width 10.8L, Platelet Count 271, Mean Platelet Volume 6.3L, Neutrophils (%) (Auto) 60.8, Lymphocytes (%) (Auto) 28.5, Monocytes (%) (Auto) 8.3, Eosinophils (%) (Auto) 1.5, Basophils (%) (Auto ) 0.9, Sodium Level 138, Potassium Level 3.1L, Chloride Level 101, Carbon Dioxide Level 25, Anion Gap 12, Blood Urea Nitrogen 6L, Creatinine 0.9, Estimat Glomerular Filtration Rate > 60, Glucose Level 153H, Calcium Level 9.8, Amylase Level 221H, Lipase 803H Height (Feet): 5 Height (Inches): 9.00 Weight (Pounds): 209 Brody Escobar MD Aug 21, 2018 14:52
--- NOTE | 2018-08-21 18:45 | NUR ---
NURSE NOTES: Late entry for yesterday, 08/20/18 pt ate 50 for dinner, stated that chicken broth made her stomach burn.Voiding well approximate output greater than 1000. Bowel sounds present, abdomen soft. passing flatus, yet has not had a bm this shift upon this writing. Current plan of care will be followed. Per Dr Escobar pt does not have presenting evidence of pancreatitis. Stated that Dr. Rubio is on the case, no further orders given
--- NOTE | 2018-08-21 18:50 | NUR ---
NURSE NOTES: Pt had a bowel movement today . Stated she has not had a Bm since Friday. Having a BM relieved allot of discomfort. Increased meal intake today, vomitus x 1 earlier in shift yellow in color, color of broth consumed. Reglan given x two refused Tums. [place] given times 1 Tramadol given x 1. Abdomen is soft non distended by slightly large. Ambulated to restroom and performed ADLs with supervision
[2018-08-21] MEDS ORDERED: Tubing IV Secondary IV ONE (19:05)
[2018-08-21] MEDS ORDERED: D5NS 1000ml IV ONE (19:06)
[2018-08-21 20:00] VITALS: BP 146/94
--- NOTE | 2018-08-21 20:17 | NUR ---
NURSE NOTES: Received report from Yasemin LIU. Pt A&O x4, laying semi-fowlers in bed. Pt on RA, no signs of pain or distress. IV site dry & intact. Call light in reach, bed in lowest position, side rails up x2. Will continue to monitor pt.
--- NOTE | 2018-08-21 20:37 | NUR ---
HAND-OFF: Report given to Jarad LIU.
[2018-08-21] MEDS: Zolpidem 5mg tab ORAL PRN (21:51)
[2018-08-22] VITALS: BP 134/93
[2018-08-22] MEDS: D5NS 1,000 ML IV SCH ×2 (02:33→14:45)
[2018-08-22] MEDS: Tums 500mg ORAL PRN ×2 (05:20→09:49)
[2018-08-22 06:07] LABS: BASOPHILS % (AUTO) 0.8 % (0.0-2.0); EOSINOPHILS % (AUTO) 3.9 % (0.0-3.0); HEMATOCRIT 47.5 % (37.0-47.0); HEMOGLOBIN 16.4 G/DL (12.0-16.0); LYMPHOCYTES % (AUTO) 26.8 % (20.0-45.0); MEAN CORPUSCULAR VOLUME 91 FL (80-99); MONOCYTES % (AUTO) 7.3 % (1.0-10.0); NEUTROPHILS % (AUTO) 61.3 % (45.0-75.0); PLATELET COUNT 287 K/UL (150-450); RED BLOOD COUNT 5.24 M/UL (4.20-5.40)
[2018-08-22 06:24] LABS: AMYLASE 189 U/L (25-115); ANION GAP 10 mmol/L (5-15); BLOOD UREA NITROGEN 7 mg/dL (7-18); CALCIUM 9.8 MG/DL (8.5-10.1); CARBON DIOXIDE 26 MMOL/L (21-32); CHLORIDE 103 MMOL/L (98-107); POTASSIUM 3.5 MMOL/L (3.5-5.1); SODIUM 139 MMOL/L (136-145)
--- NOTE | 2018-08-22 07:36 | NUR ---
HAND-OFF: Report given to Jennifer LIU. Pt is stable.
--- NOTE | 2018-08-22 07:46 | NUR ---
NURSE NOTES: Patient received in stable condition, sleeping in bed. Breathing unlabored on room air. No s/s of pain or respiratory distress observed. IV site patent and intact, fluids running at 100cc. Bed locked in low position, commode by bedside. Call light placed within reach, will continue to monitor.
[2018-08-22] MEDS: HYDROcodone/Acetamin 10/325 tab ORAL PRN ×3 (08:05→22:09)
[2018-08-22] MEDS: Pantoprazole Inj IVP SCH (08:06)
[2018-08-22] MEDS: Metoprolol 25mg tab ORAL SCH (08:06)
[2018-08-22] MEDS: Heparin 5000 units/ml inj SUBQ SCH ×2 (08:31→20:55)
--- NOTE | 2018-08-22 09:43 | General Progress Note ---
Assessment/Plan Assessment/Plan S: I am ok O: Positive for residual abd pain . had BM, tolerate to PO food. PHYSICAL EXAMINATION: HEENT: Atraumatic and normocephalic. CHEST: Clear to auscultation. HEART: S1 and S2. Regular rate and rhythm. ABDOMEN: Soft. No organomegaly.MUSCULOSKELETAL: No gross motor or sensory deficits. NEUROLOGIC: Awake, alert, and oriented x3. Hospital meds: including but not limited to Toradol 30 mg BID ASSESSMENT AND PLAN: 1. Acute pancreatitis, etiology unknown. 2. Hypertension. 3. Gastrointestinal and deep vein thrombosis prophylaxis. PLAN OF CARE: Advance Diet from Liquid to regular GI to follow Subjective Allergies: Coded Allergies: No Known Allergies (Unverified , 01/29/14) Objective Last 24 Hour Vital Signs Date Time Temp Pulse Resp B/P (MAP) Pulse Ox O2 Delivery O2 Flow Rate FiO2 08/22/18 09:00 Room Air 08/22/18 08:06 98 162/99 08/22/18 08:06 98 162/99 08/22/18 00:00 98.4 98 18 134/93 (107) 98 08/21/18 21:00 Room Air 08/21/18 20:00 98.3 91 18 146/94 (111) 97 Intake and Output 08/21/18 08/22/18 18:59 06:59 Intake Total 1600 ml 800 ml Balance 1600 ml 800 ml Intake Oral 1000 ml IV Total 600 ml 800 ml # Voids 3 Laboratory Tests 08/22/18 05:58: White Blood Count 10.0, Red Blood Count 5.24, Hemoglobin 16.4H, Hematocrit 47.5H , Mean Corpuscular Volume 91, Mean Corpuscular Hemoglobin 31.3H, Mean Corpuscular Hemoglobin Concent 34.6, Red Cell Distribution Width 11.0L, Platelet Count 287, Mean Platelet Volume 6.3L, Neutrophils (%) (Auto) 61.3, Lymphocytes (%) (Auto) 26.8, Monocytes (%) (Auto) 7.3, Eosinophils (%) (Auto) 3.9H, Basophils (%) (Auto) 0.8, Sodium Level 139, Potassium Level 3.5, Chloride Level 103, Carbon Dioxide Level 26, Anion Gap 10, Blood Urea Nitrogen 7, Creatinine 1.0, Estimat Glomerular Filtration Rate > 60, Glucose Level 169H, Calcium Level 9.8, Amylase Level 189H, Lipase 798H Height (Feet): 5 Height (Inches): 9.00 Weight (Pounds): 209 Brody Escobar MD Aug 22, 2018 09:43
[2018-08-22] MEDS: Ketorolac 30mg Inj IV PRN (11:32)
--- NOTE | 2018-08-22 14:54 | NUR ---
CASE MANAGEMENT: REVIEW SI: PANCREATITIS T 98.3 HR 91 RR 18 BP 158/100 SAT 97% ROOM AIR AMYLASE 189 LIPASE 789 IS: LOPRESSOR PO QD NORVASC PO QD PROTONIX IV QD D5 NS IVF @100ML/HR MED/SURG STATUS DCP: PATIENT IS FROM HOME
--- NOTE | 2018-08-22 16:30 | General Progress Note ---
Assessment/Plan Assessment/Plan Assessment - Recurrent pancreatitis, ? etiology, ? microlithiasis, ? anatomic anomaly ( divisum, SOD) Recommendations - IVF - follow labs and exam - MRCP Friday - will consider EUS, if not done in past Thank you Radha Rondon MD Subjective Allergies: Coded Allergies: No Known Allergies (Unverified , 01/29/14) Objective Last 24 Hour Vital Signs Date Time Temp Pulse Resp B/P (MAP) Pulse Ox O2 Delivery O2 Flow Rate FiO2 08/22/18 09:00 Room Air 08/22/18 08:06 98 162/99 08/22/18 08:06 98 162/99 08/22/18 00:00 98.4 98 18 134/93 (107) 98 08/21/18 21:00 Room Air 08/21/18 20:00 98.3 91 18 146/94 (111) 97 Intake and Output 08/21/18 08/22/18 19:00 07:00 Intake Total 1600 ml 800 ml Balance 1600 ml 800 ml Intake Oral 1000 ml IV Total 600 ml 800 ml # Voids 3 Laboratory Tests 08/22/18 05:58: White Blood Count 10.0, Red Blood Count 5.24, Hemoglobin 16.4H, Hematocrit 47.5H , Mean Corpuscular Volume 91, Mean Corpuscular Hemoglobin 31.3H, Mean Corpuscular Hemoglobin Concent 34.6, Red Cell Distribution Width 11.0L, Platelet Count 287, Mean Platelet Volume 6.3L, Neutrophils (%) (Auto) 61.3, Lymphocytes (%) (Auto) 26.8, Monocytes (%) (Auto) 7.3, Eosinophils (%) (Auto) 3.9H, Basophils (%) (Auto) 0.8, Sodium Level 139, Potassium Level 3.5, Chloride Level 103, Carbon Dioxide Level 26, Anion Gap 10, Blood Urea Nitrogen 7, Creatinine 1.0, Estimat Glomerular Filtration Rate > 60, Glucose Level 169H, Calcium Level 9.8, Amylase Level 189H, Lipase 798H Height (Feet): 5 Height (Inches): 9.00 Weight (Pounds): 209 Radha Rondon MD Aug 22, 2018 16:30
[2018-08-22 17:16] VITALS: BP 130/88
--- NOTE | 2018-08-22 19:46 | NUR ---
HAND-OFF: Report given to Meggan LIU.
--- NOTE | 2018-08-22 19:58 | NUR ---
NURSE NOTES: Pt received awake, lying in bed, able to make needs known, call light within reach, no signs of pain or distress at the moment. will continue to monitor.
--- NOTE | 2018-08-22 22:00 | Consultation ---
DATE OF CONSULTATION: 08/22/2018 GASTROENTEROLOGY CONSULTATION REPORT CONSULTING PHYSICIAN: Radha Rondon M.D. CHIEF COMPLAINT: "I was asked to see this patient by Dr. Escobar for evaluation of her pancreatitis and abdominal pain." HISTORY OF PRESENT ILLNESS: The patient is a pleasant 57-year-old woman, with 1 previous history of pancreatitis was readmitted now for her second episode of abdominal pain and pancreatitis. On this episode, she noticed a three-day history of right upper quadrant abdominal pain with some nausea and vomiting. The pain is not better and in fact she is tolerating clear liquid diet. The patient states that on her previous episode, which was about three years ago, she had a workup and records show that she had a high triglycerides. She was treated conservatively with recommendations to follow up as an outpatient. At that time, her triglycerides remained at 251. The patient denies any alcohol use and did not have any gallstones on her imaging studies thus far. PAST MEDICAL HISTORY: See intake chart, there is a history of biliary pancreatitis and hypertension. MEDICATIONS: See the chart list for details. FAMILY HISTORY: Negative for history of pancreatitis. SOCIAL HISTORY: The patient is single, retired. She has no children. She denies alcohol or drug use. The patient does intermittently smoke. MEDICATIONS: As an outpatient none. REVIEW OF SYSTEMS: Otherwise negative. PHYSICAL EXAMINATION: GENERAL: Pleasant, woman, seen in her room. HEENT: Normocephalic and atraumatic. Sclerae anicteric. OROPHARYNX: Clear. NECK: Supple. CHEST: Clear to auscultation. CARDIOVASCULAR: Regular rate. ABDOMEN: Soft with good bowel sounds. There is a very minimal right upper quadrant tenderness to palpation without guarding or rebound. EXTREMITIES: Revealed no edema. LABORATORY DATA: Noted. ASSESSMENT: The patient presents with and abdominal pain, which is improved. She does have a traumatic evidence of pancreatitis as well as some CT evidence of pancreatic inflammation, which is mild. This would be her second episode of pancreatitis. The patient was noted to have high triglycerides in the past of 251, it is not typically associated with acute pancreatitis. I will order another triglyceride level. In the meantime, an MRCP will be done to evaluate the pancreatic anatomy there to look for anatomical findings such as pancreas divisum. If not done in the past, an endoscopic ultrasound can also be considered as a workup for this condition. RECOMMENDATIONS: Per above discussion and per orders written in the chart. Thank you for asking me to participate in the care of this patient. Radha Rondon M.D. DR: ANDREEA JOB#: [id number] CC:
[2018-08-22] MEDS: Metoclopramide 10mg/2ml Inj IVP PRN (22:16)
[2018-08-22] MEDS: Zolpidem 5mg tab ORAL PRN (22:43)
[2018-08-23] MEDS: D5NS 1,000 ML IV SCH ×3 (03:54→20:41)
[2018-08-23] MEDS: Ketorolac 30mg Inj IV PRN ×2 (05:53→18:21)
--- NOTE | 2018-08-23 07:26 | NUR ---
HAND-OFF: Report given to NOE Hart.
--- NOTE | 2018-08-23 07:27 | NUR ---
NURSE NOTES: Received patient awake, alert and oriented, sitting up comfortably in bed. IV site at right forearm, 22 gauge, infusing D5NS @ 100ml/hour. Bed at lowest level with 3 side rails up. Call light within reach. In no apparent distress at this time. Will continue to monitor.
[2018-08-23 08:44] VITALS: BP 132/82
[2018-08-23] MEDS: Pantoprazole Inj IVP SCH (09:04)
[2018-08-23] MEDS: Metoprolol 25mg tab ORAL SCH (09:04)
[2018-08-23] MEDS: Heparin 5000 units/ml inj SUBQ SCH ×2 (09:06→20:44)
[2018-08-23] MEDS: HYDROcodone/Acetamin 10/325 tab ORAL PRN ×3 (09:08→17:25)
[2018-08-23 10:42] LABS: BASOPHILS % (AUTO) 0.8 % (0.0-2.0); EOSINOPHILS % (AUTO) 5.6 % (0.0-3.0); HEMOGLOBIN 14.7 G/DL (12.0-16.0); LYMPHOCYTES % (AUTO) 25.4 % (20.0-45.0); MEAN CORPUSCULAR VOLUME 92 FL (80-99); MONOCYTES % (AUTO) 8.1 % (1.0-10.0); NEUTROPHILS % (AUTO) 60.1 % (45.0-75.0); PLATELET COUNT 261 K/UL (150-450); RED BLOOD COUNT 4.67 M/UL (4.20-5.40); RED CELL DISTRIBUTION WIDTH 10.9 % (11.6-14.8)
[2018-08-23 11:05] LABS: AMYLASE 177 U/L (25-115); ANION GAP 10 mmol/L (5-15); BLOOD UREA NITROGEN 13 mg/dL (7-18); CALCIUM 9.2 MG/DL (8.5-10.1); CARBON DIOXIDE 24 MMOL/L (21-32); CHLORIDE 104 MMOL/L (98-107); POTASSIUM 3.2 MMOL/L (3.5-5.1); SODIUM 138 MMOL/L (136-145)
[2018-08-23 12:00] VITALS: BP 135/76
[2018-08-23 16:00] VITALS: BP 147/77
--- NOTE | 2018-08-23 16:48 | General Progress Note ---
Assessment/Plan Assessment/Plan Assessment - Recurrent pancreatitis, ? etiology, ? microlithiasis, ? anatomic anomaly ( divisum, SOD) Recommendations - IVF - follow labs and exam - MRCP Friday Subjective Allergies: Coded Allergies: No Known Allergies (Unverified , 01/29/14) Subjective Better less abd pain tolerating PO for MRCP tomorrow Objective Last 24 Hour Vital Signs Date Time Temp Pulse Resp B/P (MAP) Pulse Ox O2 Delivery O2 Flow Rate FiO2 08/23/18 16:00 98.8 68 18 147/77 (100) 97 08/23/18 13:33 98.5 08/23/18 12:00 98.5 77 17 135/76 (95) 98 08/23/18 09:04 98 132/82 08/23/18 09:04 98 132/82 08/23/18 09:00 Room Air 08/23/18 08:44 98.4 98 19 132/82 (99) 100 08/22/18 21:00 Room Air 08/22/18 17:16 99.3 97 19 130/88 (102) 100 Intake and Output 08/22/18 08/23/18 19:00 07:00 Intake Total 220 ml 700 ml Balance 220 ml 700 ml Intake Oral 120 ml IV Total 100 ml 700 ml Laboratory Tests 08/23/18 10:25: White Blood Count 8.0, Red Blood Count 4.67, Hemoglobin 14.7, Hematocrit 43.0, Mean Corpuscular Volume 92, Mean Corpuscular Hemoglobin 31.4H, Mean Corpuscular Hemoglobin Concent 34.1, Red Cell Distribution Width 10.9L, Platelet Count 261, Mean Platelet Volume 6.3L, Neutrophils (%) (Auto) 60.1, Lymphocytes (%) (Auto) 25.4, Monocytes (%) (Auto) 8.1, Eosinophils (%) (Auto) 5.6H, Basophils (%) (Auto ) 0.8, Sodium Level 138, Potassium Level 3.2L, Chloride Level 104, Carbon Dioxide Level 24, Anion Gap 10, Blood Urea Nitrogen 13, Creatinine 1.0, Estimat Glomerular Filtration Rate > 60, Glucose Level 137H, Calcium Level 9.2, Amylase Level 177H, Lipase 642H Height (Feet): 5 Height (Inches): 9.00 Weight (Pounds): 209 Objective WDWN NCAT supple CTA RR abd soft ND, Mild RUQ TTP no edema Radha Rondon MD Aug 23, 2018 16:48
--- NOTE | 2018-08-23 16:51 | NUR ---
CASE MANAGEMENT: REVIEW SI: PANCREATITIS T 98.8 HR 68 RR 18 BP 147/77 SAT 97% ROOM AIR K 3.2 AMYLASE 177 LIPSE 642 IS: LOPRESSOR PO QD NORVASC PO QD PROTONIX IV QD D5 NS IVF @100ML/HR MED/SURG STATUS DCP: PATIENT IS FROM HOME
[2018-08-23] MEDS ORDERED: D5NS 1000ml IV ONE (17:12)
--- NOTE | 2018-08-23 18:50 | General Progress Note ---
Assessment/Plan Assessment/Plan S: I am ok O: Positive for residual abd pain . had BM, tolerate to PO food. PHYSICAL EXAMINATION: HEENT: Atraumatic and normocephalic. CHEST: Clear to auscultation. HEART: S1 and S2. Regular rate and rhythm. ABDOMEN: Soft. No organomegaly.MUSCULOSKELETAL: No gross motor or sensory deficits. NEUROLOGIC: Awake, alert, and oriented x3. Hospital meds: including but not limited to Toradol 30 mg BID ASSESSMENT AND PLAN: 1. Acute pancreatitis, etiology unknown. 2. Hypertension. 3. Gastrointestinal and deep vein thrombosis prophylaxis. PLAN OF CARE: MRCP on Friday Subjective Allergies: Coded Allergies: No Known Allergies (Unverified , 01/29/14) Objective Last 24 Hour Vital Signs Date Time Temp Pulse Resp B/P (MAP) Pulse Ox O2 Delivery O2 Flow Rate FiO2 08/23/18 17:55 98.8 08/23/18 16:00 98.8 68 18 147/77 (100) 97 08/23/18 12:00 98.5 77 17 135/76 (95) 98 08/23/18 09:04 98 132/82 08/23/18 09:04 98 132/82 08/23/18 09:00 Room Air 08/23/18 08:44 98.4 98 19 132/82 (99) 100 08/22/18 21:00 Room Air Intake and Output 08/22/18 08/23/18 19:00 07:00 Intake Total 220 ml 700 ml Balance 220 ml 700 ml Intake Oral 120 ml IV Total 100 ml 700 ml Laboratory Tests 08/23/18 10:25: White Blood Count 8.0, Red Blood Count 4.67, Hemoglobin 14.7, Hematocrit 43.0, Mean Corpuscular Volume 92, Mean Corpuscular Hemoglobin 31.4H, Mean Corpuscular Hemoglobin Concent 34.1, Red Cell Distribution Width 10.9L, Platelet Count 261, Mean Platelet Volume 6.3L, Neutrophils (%) (Auto) 60.1, Lymphocytes (%) (Auto) 25.4, Monocytes (%) (Auto) 8.1, Eosinophils (%) (Auto) 5.6H, Basophils (%) (Auto ) 0.8, Sodium Level 138, Potassium Level 3.2L, Chloride Level 104, Carbon Dioxide Level 24, Anion Gap 10, Blood Urea Nitrogen 13, Creatinine 1.0, Estimat Glomerular Filtration Rate > 60, Glucose Level 137H, Calcium Level 9.2, Amylase Level 177H, Lipase 642H Height (Feet): 5 Height (Inches): 9.00 Weight (Pounds): 209 Brody Escobar MD Aug 23, 2018 18:50
--- NOTE | 2018-08-23 19:39 | NUR ---
HAND-OFF: Report given to NOE Broderick.
--- NOTE | 2018-08-23 19:44 | NUR ---
NURSE NOTES: Pt received awake, alert, just received pain med, no signs of distress or pain at the moment, IV fluids running, able to make needs known, call light within reach. will continue to monitor.
[2018-08-23] MEDS: Zolpidem 5mg tab ORAL PRN (20:52)
[2018-08-24] MEDS: HYDROcodone/Acetamin 10/325 tab ORAL PRN (02:16)
[2018-08-24 06:49] LABS: BASOPHILS % (AUTO) 1.1 % (0.0-2.0); EOSINOPHILS % (AUTO) 6.8 % (0.0-3.0); HEMATOCRIT 40.7 % (37.0-47.0); LYMPHOCYTES % (AUTO) 25.9 % (20.0-45.0); MEAN CORPUSCULAR VOLUME 92 FL (80-99); MONOCYTES % (AUTO) 7.9 % (1.0-10.0); NEUTROPHILS % (AUTO) 58.3 % (45.0-75.0); PLATELET COUNT 235 K/UL (150-450); RED BLOOD COUNT 4.44 M/UL (4.20-5.40); RED CELL DISTRIBUTION WIDTH 10.8 % (11.6-14.8); WHITE BLOOD COUNT 8.8 K/UL (4.8-10.8)
[2018-08-24 07:22] LABS: AMYLASE 190 U/L (25-115); ANION GAP 6 mmol/L (5-15); BLOOD UREA NITROGEN 10 mg/dL (7-18); CALCIUM 9.1 MG/DL (8.5-10.1); CARBON DIOXIDE 29 MMOL/L (21-32); CHLORIDE 105 MMOL/L (98-107); CREATININE 0.9 MG/DL (0.55-1.30); POTASSIUM 3.3 MMOL/L (3.5-5.1); SODIUM 140 MMOL/L (136-145)
--- NOTE | 2018-08-24 07:45 | NUR ---
NURSE NOTES: Received report from NOE Broderick. Rounding done with outgoing nurse. Patient a/o x4 lying on the bed. No respiratory distress noted. c/o abdominal pain 7/10 and pain medicine will be given as MD ordered. IV patent. Questions answered. Bed in lowest position, call light within reach. Will continue to monitor.
--- NOTE | 2018-08-24 07:51 | NUR ---
HAND-OFF: Report given to NOE Ryan.
[2018-08-24] MEDS: D5NS 1,000 ML IV SCH (07:53)
[2018-08-24] MEDS: Ketorolac 30mg Inj IV PRN (07:55)
[2018-08-24 08:00] VITALS: BP 152/86
[2018-08-24] MEDS: Metoprolol 25mg tab ORAL SCH (08:57)
[2018-08-24] MEDS: Pantoprazole Inj IVP SCH (08:58)
[2018-08-24] MEDS: Heparin 5000 units/ml inj SUBQ SCH (08:59)
--- NOTE | 2018-08-24 10:23 | NUR ---
RD ASSESSMENT & RECOMMENDATIONS SEE CARE ACTIVITY FOR COMPLETE ASSESSMENT DAILY ESTIMATED NEEDS: Needs based on pancreatitis/ 73kg abw 25-30 kcals/kg 9021-8706 total kcals 1-1.5 g protein/kg 73-109 g total protein 25-30 mL/kg 5888-7408 total fluid mLs NUTRITION DIAGNOSIS: Altered nutrition related lab values R/T pancreatitis, h/o DM, HTN as evidenced by elev lipase (614 trend down), elev BGs (153 137 169 153), elev BPs. CURRENT DIET:REGULAR PO DIET RECOMMENDATIONS: CCHO MED, LOW NA, LOW FAT/ texture as tolerated ADDITIONAL RECOMMENDATIONS: * Standing wt as able for accurate CBW * A1C for eval of glycemic control- h/o DM * Monitor BGs, need for hypoglycemic agents- h/o DM * Check triglyceride * Monitor PO intake and tolerance * Monitor lytes, replete as needed (low K)
--- NOTE | 2018-08-24 11:30 | NUR ---
NURSE NOTES: Pt K+ 3.[address] Escobar notified. No new order.
[2018-08-24 12:00] VITALS: BP 128/65
--- NOTE | 2018-08-24 12:10 | NUR ---
NURSE NOTES: Dr. Escobar ordered continue home meds except Suring. Noted and carried out.
--- NOTE | 2018-08-24 12:30 | NUR ---
NURSE NOTES: Discharge instruction was given. Belongings checked with the patient. Removed IV line. Patient discharged with her sister in stable condition.
[2018-08-24] MEDS ORDERED: D5NS 1000ml IV ONE ×2 (12:39)
--- NOTE | 2018-08-24 13:21 | General Progress Note ---
Assessment/Plan Assessment/Plan S: I want to go home O: Positive for residual abd pain . had BM, tolerate to PO food. PHYSICAL EXAMINATION: HEENT: Atraumatic and normocephalic. CHEST: Clear to auscultation. HEART: S1 and S2. Regular rate and rhythm. ABDOMEN: Soft. No organomegaly.MUSCULOSKELETAL: No gross motor or sensory deficits. NEUROLOGIC: Awake, alert, and oriented x3. Hospital meds: including but not limited to Toradol 30 mg BID ASSESSMENT AND PLAN: 1. Acute pancreatitis, etiology unknown. 2. Hypertension. 3. Gastrointestinal and deep vein thrombosis prophylaxis. PLAN OF CARE: MRCP on Friday. However patient refused. She is aware that needs to followup with PCP. However want to leave now Subjective Allergies: Coded Allergies: No Known Allergies (Unverified , 01/29/14) Objective Last 24 Hour Vital Signs Date Time Temp Pulse Resp B/P (MAP) Pulse Ox O2 Delivery O2 Flow Rate FiO2 08/24/18 12:00 98.2 68 16 128/65 (86) 96 08/24/18 09:00 Room Air 08/24/18 08:57 94 152/86 08/24/18 08:57 94 152/86 08/24/18 08:00 98.1 94 16 152/86 (108) 98 08/23/18 21:00 Room Air 08/23/18 18:51 98.8 08/23/18 17:55 98.8 08/23/18 16:00 98.8 68 18 147/77 (100) 97 Intake and Output 08/23/18 08/24/18 18:59 06:59 Intake Total 600 ml Balance 600 ml IV Total 600 ml # Bowel Movements 1 Laboratory Tests 08/24/18 06:20: White Blood Count 8.8, Red Blood Count 4.44, Hemoglobin 14.0, Hematocrit 40.7, Mean Corpuscular Volume 92, Mean Corpuscular Hemoglobin 31.4H, Mean Corpuscular Hemoglobin Concent 34.2, Red Cell Distribution Width 10.8L, Platelet Count 235, Mean Platelet Volume 6.0L, Neutrophils (%) (Auto) 58.3, Lymphocytes (%) (Auto) 25.9, Monocytes (%) (Auto) 7.9, Eosinophils (%) (Auto) 6.8H, Basophils (%) (Auto ) 1.1, Sodium Level 140, Potassium Level 3.3L, Chloride Level 105, Carbon Dioxide Level 29, Anion Gap 6, Blood Urea Nitrogen 10, Creatinine 0.9, Estimat Glomerular Filtration Rate > 60, Glucose Level 153H, Calcium Level 9.1, Amylase Level 190H, Lipase 614H Height (Feet): 5 Height (Inches): 9.00 Weight (Pounds): 209 Brody Escobar MD Aug 24, 2018 13:21
--- NOTE | 2018-08-24 13:39 | GI Progress Note ---
Assessment/Plan Problems: (1) Acute pancreatitis ICD Codes: K85.9 - Acute pancreatitis, unspecified SNOMED: 752212136 Qualifiers: Qualified Codes: K85.90 - Acute pancreatitis without necrosis or infection, unspecified (2) Dehydration ICD Codes: E86.0 - Dehydration SNOMED: 78121844 (3) Abdominal pain ICD Codes: R10.9 - Unspecified abdominal pain SNOMED: 15596429 (4) Pancreatitis ICD Codes: K85.9 - Pancreatitis SNOMED: 68626234 (5) Drug abuse ICD Codes: F19.10 - Other psychoactive substance abuse, uncomplicated SNOMED: 37517341 Status: stable Status Narrative Discussed with Dr. Rubio. Assessment/Plan Assessment - Recurrent pancreatitis, ? etiology, ? microlithiasis, ? anatomic anomaly ( divisum, SOD) - refused MRCP Recommendations - IVF - follow labs and exam - okay for DC per GI standpoint, recommended outpatient EUS to evaluate Pancrease >> pt acknowledged. The patient was seen and examined at bedside and all new and available data was reviewed in the patients chart. I agree with the above findings, impression and plan. (Patient seen earlier today. Signature stamp does not reflect patient encounter time.). - Steven Rubio MD Subjective Gastrointestinal/Abdominal: Reports: no symptoms Subjective denies any abdominal pain wishes to be discharge Objective Last 24 Hour Vital Signs Date Time Temp Pulse Resp B/P (MAP) Pulse Ox O2 Delivery O2 Flow Rate FiO2 08/24/18 12:00 98.2 68 16 128/65 (86) 96 08/24/18 09:00 Room Air 08/24/18 08:57 94 152/86 08/24/18 08:57 94 152/86 08/24/18 08:00 98.1 94 16 152/86 (108) 98 08/23/18 21:00 Room Air 08/23/18 18:51 98.8 08/23/18 17:55 98.8 08/23/18 16:00 98.8 68 18 147/77 (100) 97 Intake and Output 08/23/18 08/24/18 18:59 06:59 Intake Total 600 ml Balance 600 ml IV Total 600 ml # Bowel Movements 1 Laboratory Tests Test 08/24/18 06:20 White Blood Count 8.8 K/UL (4.8-10.8) Red Blood Count 4.44 M/UL (4.20-5.40) Hemoglobin 14.0 G/DL (12.0-16.0) Hematocrit 40.7 % (37.0-47.0) Mean Corpuscular Volume 92 FL (80-99) Mean Corpuscular Hemoglobin 31.4 PG (27.0-31.0) H Mean Corpuscular Hemoglobin Concent 34.2 G/DL (32.0-36.0) Red Cell Distribution Width 10.8 % (11.6-14.8) L Platelet Count 235 K/UL (150-450) Mean Platelet Volume 6.0 FL (6.5-10.1) L Neutrophils (%) (Auto) 58.3 % (45.0-75.0) Lymphocytes (%) (Auto) 25.9 % (20.0-45.0) Monocytes (%) (Auto) 7.9 % (1.0-10.0) Eosinophils (%) (Auto) 6.8 % (0.0-3.0) H Basophils (%) (Auto) 1.1 % (0.0-2.0) Sodium Level 140 MMOL/L (136-145) Potassium Level 3.3 MMOL/L (3.5-5.1) L Chloride Level 105 MMOL/L (98-107) Carbon Dioxide Level 29 MMOL/L (21-32) Anion Gap 6 mmol/L (5-15) Blood Urea Nitrogen 10 mg/dL (7-18) Creatinine 0.9 MG/DL (0.55-1.30) Estimat Glomerular Filtration Rate > 60 mL/min (>60) Glucose Level 153 MG/DL (74-106) H Calcium Level 9.1 MG/DL (8.5-10.1) Amylase Level 190 U/L (25-115) H Lipase 614 U/L (73-393) H Height (Feet): 5 Height (Inches): 9.00 Weight (Pounds): 209 General Appearance: WD/WN, no apparent distress, alert Cardiovascular: normal rate Respiratory/Chest: normal breath sounds, no respiratory distress Abdominal Exam: normal bowel sounds, non tender, soft Extremities: normal range of motion, non-tender Miriam Gibson NP Aug 24, 2018 13:39
--- NOTE | 2018-08-25 10:54 | NUR ---
*-* INSURANCE *-* CLINICALS, REVIEW AND INTERQUAL FAXED TO: [facility]\ P- [phone] F- [phone]...( FAX THE REVIEW ONLY) & [place] P- [phone] F- [phone] (FAX REVIEW/CLINICAL)
--- NOTE | 2018-08-26 08:10 | Discharge Summary ---
Discharge Summary Discharge Summary _ DATE OF ADMISSION: 08/19/2018 DATE OF DISCHARGE: 08/24/2018 DISCHARGED BY : REASON FOR ADMISSION: 57 years old female with past medical history of hypertension, presented to emergency room for evaluation due to abdominal pain and vomiting. Patient could not keep down fluids and liquids. Pain reported to be in epigastric region , nonradiating, 10 out of 10. Patient reported that she had similar episode a year ago and was diagnosed at that timewith pancreatitis. She denied any fever and chills. She denied vomiting blood. She denied melena. No dysuria. Patient denied chest pain, palpitations ,dysuria ,shortness of breath, visual changes, and headache. Patient denied history of alcoholism. Upon evaluation vital signs revealed elevated blood pressure 159/98. Laboratory workup revealed no leukocytosis , stable hemoglobin and hematocrit. Stable electrolytes. BUN 14 creatinine 1.1 . glucose 134 . lipase 658. Troponin negative. EKG revealed normal sinus rhythm with right bundle branch block and left axis deviation. Albumin 4.5. Urinalysis revealed no evidence of UTI. Chest x-ray revealed no acute cardiopulmonary pathology. Abdominal x-ray revealed no acute process. Patient started on IV hydration, provided with analgesic and anti-emetics , and was admitted for further management. CONSULTANTS: [facility] COURSE: Patient admitted to medical surgical floor. Patient was kept n.p.o. and started on IV hydration. Pain management was addressed. Antiemetic provided as needed. Lipase and amylase were trending. DVT and GI prophylaxis provided. GI specialist closely follow. Abdominal ultrasound revealed somewhat heterogeneous pancreas, possibly indicative of acute pancreatitis or related to prior episode of pancreatitis. Ectatic pancreatic duct, likely related to prior episode of pancreatitis as well . N o gallstones or dilated bile ducts. LFT remained stable. Patient subsequently undergone CT of the abdomen and pelvis , which revealed very early non-necrotizing pancreatitis . Previously demonstrated , in 2016 , more extensive changes of acute pancreatitis , have resolved. No significant pancreatic ductal ectasia. No associated fluid collection or extraluminal gas. No acute process otherwise. Lipase and amylase were trended and remained elevated with small trend down , prior to discharge lipase 614. Amylase from initial 214 down to 190. Patient was slowly started on liquid diet and was advanced as tolerated. Patient was able to tolerate diet. Pain was controlled. Emesis resoled. Hemoglobin and hematocrit remained stable. Blood pressure was managed with current regimen of beta-sharlene and calcium channel sharlene and remained stable. Patient was stable for discharge from GI point of view. Recommended outpatient endoscopic ultrasound to evaluate pancreas. Of note urine toxicology screen on previous admission was positive for opiates , benzodiazepine and marijuana. Patient denied use of street drugs. Patient was counseled on abstinence from illicit street drugs and avoidance of overuse of narcotic analgesic and benzodiazepine. FINAL DIAGNOSES: Acute pancreatitis Dehydration History of prior pancreatitis Hypertension History of drug abuse DISCHARGE MEDICATIONS: See Medication Reconciliation list. DISCHARGE INSTRUCTIONS: Patient was discharged home. Follow up with primary care provider in one week. I have been assigned to dictate discharge summary for this account. I was not involved in the patient's management. Zandra Serrano NP Aug 26, 2018 08:10
== END 2018-08-24 12:40 | disposition home or self-care (01) | DRG 282 ==
LOC: EMR 12:01 → 3E 13:16 → EDBEDREQ 15:59
DX: K85.90 Acute pancreatitis without necrosis or infection, unspecified (principal); E86.0 Dehydration; I10 Essential (primary) hypertension; F19.11 Other psychoactive substance abuse, in remission
CPT/HCPCS: 36415; 71045; 74018; 74177; 76700; 80048; 80053; 81003; 82150; 83690; 84484; 85025; 85610; 85730; 93005; 96361; 96374; 96375; 96376; 99285; J2765

== ENCOUNTER 2019-03-11 19:40 | Emergency (ER) | payer OTHER ==
[~2019-03-11] VITALS: Ht 175.3 cm; Wt 95.3 kg
[~2019-03-11 19:40] MED LIST changes: +DICYCLOMINE HCL10 MG PO; +LACTULOSE20 GM/301 ORAL; +NKM; +PROTONIX20 MG ORAL; +UNOBMED
--- NOTE | 2019-03-11 20:16 | NUR ---
ED Nurse Note: Patient presents with complaints of abdominal and chest x 1 week. 8/10 on pain scale. PAtient states she has a history of pacreatitis.
[2019-03-11 20:18] VITALS: BP 162/96
[2019-03-11] MEDS ORDERED: Mylanta II UD 30ml ORAL ONE (20:30)
[2019-03-11] MEDS ORDERED: Lidocaine 2% Visc 15ml soln ORAL ONE (20:30)
[2019-03-11] MEDS ORDERED: D5NS 1,000 ML IV ONE (20:30)
[2019-03-11 21:06] LABS: BASOPHILS % (AUTO) 0.7 % (0.0-2.0); EOSINOPHILS % (AUTO) 0.3 % (0.0-3.0); HEMOGLOBIN 15.5 G/DL (12.0-16.0); LYMPHOCYTES % (AUTO) 45.8 % (20.0-45.0); MEAN CORPUSCULAR VOLUME 85 FL (80-99); MONOCYTES % (AUTO) 5.4 % (1.0-10.0); NEUTROPHILS % (AUTO) 47.7 % (45.0-75.0); PLATELET COUNT 256 K/UL (150-450); RED BLOOD COUNT 4.95 M/UL (4.20-5.40); RED CELL DISTRIBUTION WIDTH 10.5 % (11.6-14.8); WHITE BLOOD COUNT 10.2 K/UL (4.8-10.8)
--- NOTE | 2019-03-11 21:14 | NUR ---
ED Nurse Note: Sayra currently vomitting, provided with a basin, ERMD informed, medication ordered.
[2019-03-11 21:21] LABS: ANION GAP 14 mmol/L (5-15); BLOOD UREA NITROGEN 10 mg/dL (7-18); CALCIUM 10.4 MG/DL (8.5-10.1); CARBON DIOXIDE 25 MMOL/L (21-32); CHLORIDE 107 MMOL/L (98-107); POTASSIUM 3.9 MMOL/L (3.5-5.1); SODIUM 146 MMOL/L (136-145)
[2019-03-11 21:28] LABS: ALANINE AMINOTRANSFERASE 23 U/L (12-78); ALBUMIN 4.3 G/DL (3.4-5.0); ALBUMIN/GLOBULIN RATIO 1.2 (1.0-2.7); ALKALINE PHOSPHATASE 61 U/L (46-116); ASPARTATE AMINO TRANSFERASE 17 U/L (15-37); BILIRUBIN,TOTAL 0.3 MG/DL (0.2-1.0)
[2019-03-11] MEDS ORDERED: Capsaicin 0.075% Cream TOPIC ONE (22:15)
[2019-03-11] MEDS ORDERED: Morphine Sulfate 4mg/ml Inj (IV USE ONLY) IVP ONE (22:15)
--- NOTE | 2019-03-11 22:24 | Emergency Room Report ---
History of Present Illness General Chief Complaint: General Complaint Source: Patient Present Illness HPI The patient states that she has epigastric pain with associated nausea and vomiting. She states that it started today. She states that over the past 2 years she has developed recurrent episodes of the same symptoms. She was told previously that it may be her pancreas. This episode started today. She admits that she does use marijuana heavily and regularly. She notes that that she did start using marijuana 2 years ago. She denies alcohol use or other drug use. She denies diarrhea. She denies fever or chills. She has no other complaints. Allergies: Coded Allergies: No Known Allergies (Unverified , 01/29/14) Patient History Past Medical History: see triage record, DM, HTN, other - pancreatitis Social History: Reports: drug use - THC Reviewed Nursing Documentation: PMH: Agreed; PSxH: Agreed Nursing Documentation-PMH Past Medical History: No History, Except For Hx Hypertension: Yes Hx Diabetes: Yes Hx Cancer: No Hx Gastrointestinal Problems: No Hx Neurological Problems: No Review of Systems All Other Systems: negative except mentioned in HPI Physical Exam Vital Signs Date Time Temp Pulse Resp B/P (MAP) Pulse Ox O2 Delivery O2 Flow Rate FiO2 03/11/19 19:53 98.2 88 18 162/96 (118) 98 Room Air Sp02 EP Interpretation: reviewed, normal General Appearance: no apparent distress, alert, GCS 15, non-toxic Head: normocephalic, atraumatic Eyes: bilateral eye normal inspection, bilateral eye PERRL ENT: hearing grossly normal, normal pharynx, no angioedema, normal voice Neck: full range of motion, supple/symm/no masses Respiratory: chest non-tender, lungs clear, normal breath sounds, no respiratory distress, no retraction, no accessory muscle use, speaking full sentences Cardiovascular #1: regular rate, rhythm, no edema Gastrointestinal: normal bowel sounds, non tender, soft, non-distended, no guarding, no rebound, tenderness - TTP in the epigastrium Rectal: deferred Musculoskeletal: back normal, gait/station normal, normal range of motion, non- tender Neurologic: alert, oriented x3, responsive, motor strength/tone normal, sensory intact, speech normal Psychiatric: judgement/insight normal, memory normal, mood/affect normal, no suicidal/homicidal ideation Skin: no rash Medical Decision Making Diagnostic Impression: Primary Impression: Cyclic vomiting syndrome Additional Impression: Marijuana use ER Course This patient has cyclic vomiting syndrome that is likely related to marijuana use. The patient has erythematous conjunctiva that is consistent with heavy marijuana use. She has a history of heavy use. Laboratory work-up to include CBC, LFTs and lipase are unremarkable. The patient's presentation is classic. Patient was given capsaicin cream topically, Pepcid IV and IV Zofran. She had significant improvement in her symptoms. She was educated on the pathophysiology of cyclic vomiting syndrome related to cannabis use. She indicated understanding. She is given close return precautions and follow-up instructions. Laboratory Tests Test 03/11/19 20:43 White Blood Count 10.2 K/UL (4.8-10.8) Red Blood Count 4.95 M/UL (4.20-5.40) Hemoglobin 15.5 G/DL (12.0-16.0) Hematocrit 42.0 % (37.0-47.0) Mean Corpuscular Volume 85 FL (80-99) Mean Corpuscular Hemoglobin 31.4 PG (27.0-31.0) H Mean Corpuscular Hemoglobin Concent 37.0 G/DL (32.0-36.0) H Red Cell Distribution Width 10.5 % (11.6-14.8) L Platelet Count 256 K/UL (150-450) Mean Platelet Volume 5.6 FL (6.5-10.1) L Neutrophils (%) (Auto) 47.7 % (45.0-75.0) Lymphocytes (%) (Auto) 45.8 % (20.0-45.0) H Monocytes (%) (Auto) 5.4 % (1.0-10.0) Eosinophils (%) (Auto) 0.3 % (0.0-3.0) Basophils (%) (Auto) 0.7 % (0.0-2.0) Sodium Level 146 MMOL/L (136-145) H Potassium Level 3.9 MMOL/L (3.5-5.1) Chloride Level 107 MMOL/L (98-107) Carbon Dioxide Level 25 MMOL/L (21-32) Anion Gap 14 mmol/L (5-15) Blood Urea Nitrogen 10 mg/dL (7-18) Creatinine 1.0 MG/DL (0.55-1.30) Estimate Glomerular Filtration Rate > 60 mL/min (>60) Glucose Level 94 MG/DL (74-106) Calcium Level 10.4 MG/DL (8.5-10.1) H Total Bilirubin 0.3 MG/DL (0.2-1.0) Aspartate Amino Transferase (AST) 17 U/L (15-37) Alanine Aminotransferase (ALT) 23 U/L (12-78) Alkaline Phosphatase 61 U/L (46-116) Troponin I 0.000 ng/mL (0.000-0.056) Total Protein 7.9 G/DL (6.4-8.2) Albumin 4.3 G/DL (3.4-5.0) Globulin 3.6 g/dL Albumin/Globulin Ratio 1.2 (1.0-2.7) Lipase 301 U/L (73-393) EKG Diagnostic Results Rate: normal Rhythm: NSR ST Segments: no acute changes Rhythm Strip Diag. Results EP Interpretation: yes Rate: 70's Rhythm: NSR, no PVC's, no ectopy Last Vital Signs Date Time Temp Pulse Resp B/P (MAP) Pulse Ox O2 Delivery O2 Flow Rate FiO2 03/11/19 20:18 88 18 Room Air 03/11/19 20:18 98.2 162/96 98 Status: improved Disposition: HOME, SELF-CARE Condition: Improved Scripts Ondansetron (Zofran) 4 Mg Tablet 4 MG ORAL Q6H PRN for Nausea & Vomiting, #30 TAB 0 Refills Prov: Jimbo Gibson MD 03/11/19 Referrals: [facility],REFERRING (PCP) [place] Guido DO Mar 11, 2019 22:24
--- NOTE | 2019-03-11 22:31 | NUR ---
ED Nurse Note: Patient tolerated medication administration well. She is resting comforrtably awaiting discharge.
[2019-03-11 23:13] LABS: APPEARANCE,URINE CLEAR; BILIRUBIN, URINE NEGATIVE (NEGATIVE); COLOR,URINE PALE YELLOW; GLUCOSE, URINE (UA) NEGATIVE (NEGATIVE); KETONES,URINE 1+ (NEGATIVE); LEUKOCYTE ESTERASE ,URINE 1+ (NEGATIVE); NITRITE,URINE NEGATIVE (NEGATIVE); PH,URINE 8 (4.5-8.0); PROTEIN,URINE NEGATIVE (NEGATIVE); UROBILINOGEN,URINE NORMAL MG/DL (0.0-1.0)
--- NOTE | 2019-03-11 23:18 | Diagnostic Imaging Report ---
Indication: Abdominal pain Technique: Lozano-scale and duplex images of the upper abdomen were obtained Comparison: Findings: Gallbladder is unremarkable, without stones, wall thickening, nor pericholecystic fluid. Sonographic Shen's sign is negative. Common bile duct measures 3 mm in diameter. No intrahepatic biliary ductal dilatation. Liver demonstrates diffusely increased echogenicity, consistent with diffuse hepatocellular disease, most likely fatty change. Portal vein and hepatic veins are patent. Pancreas is obscured by bowel gas. Spleen is unremarkable. Left kidney measures 11.6 cm in length. Right kidney measures 11.2 cm length. Both kidneys demonstrate normal echogenicity. There is no hydronephrosis. Small cyst is seen in the left kidney. Echogenic foci are seen in the left renal sinus. . Abdominal aorta is partially obscured by bowel gas, visualized portions are non-aneurysmal . Impression: Negative for gallstones or dilated bile ducts Liver demonstrates diffusely increased echogenicity, consistent with diffuse hepatocellular disease, most likely fatty change. Small left renal calculus, also demonstrated on prior CT Incidental findings small left renal cysts Note inability to visualize the pancreas and portions of the abdominal aorta This agrees with the preliminary interpretation provided overnight by [facility] teleradiology service.
[2019-03-11] MEDS ORDERED: Morphine Sulfate 4mg/ml Inj (IV USE ONLY) ONE (23:56)
[2019-03-11] MEDS ORDERED: ZOFRAN4 MG ORAL (23:57)
[2019-03-12] MEDS ORDERED: Morphine Sulfate 4mg/ml Inj (IV USE ONLY) IVP ONE
--- NOTE | 2019-03-12 00:03 | NUR ---
ED Nurse Note: Patient cleared for discharge by ERMD, patient verbalized undertanding of discharge instructions. ID band removed, IV removed. Patient departed with all belongings and will be accomodated to home with a taxi voucher.
[2019-03-12 00:04] VITALS: BP 162/96
--- NOTE | 2019-03-13 13:10 | Cardiology Report ---
APPROVED REPORT EKG Measurement Heart [id number] Normal sinus rhythm with sinus arrhythmia Nonspecific T wave abnormality Prolonged QT Abnormal ECG
== END 2019-03-12 00:05 | disposition home or self-care (01) ==
LOC: EMR 20:21
DX: G43.A0 Cyclical vomiting, in migraine, not intractable (principal); F12.10 Cannabis abuse, uncomplicated; E11.9 Type 2 diabetes mellitus without complications; I10 Essential (primary) hypertension
CPT/HCPCS: 36415; 76700; 80053; 81003; 83690; 84484; 85025; 93005; 96361; 96372; 96374; 96375; 96376; J2270; J2405; S0028; Z7502; 99284

== ENCOUNTER 2019-04-26 08:27 | Inpatient (IN) | payer OTHER ==
[~2019-04-26] VITALS: Ht 165.1 cm; Wt 94.3 kg
[~2019-04-26 08:27] MED LIST changes: +ZOFRAN4 MG ORAL
--- NOTE | 2019-04-26 08:40 | NUR ---
ED Nurse Note: Patient walked into ED from home c/o epigastric anterior abdominal pain and nausea/vomiting for 1 week. upon arrival to Ed patient vomited x1 yellow clear fluid. patient is alert awake x4 ambulatory steady gait, breathing unlabored and even, reports 10/10 pain, patient changed into hospital gown and placed on the monitor.
--- NOTE | 2019-04-26 08:56 | Emergency Room Report ---
History of Present Illness General Chief Complaint: Abdominal Pain Source: Patient Present Illness HPI Patient presents with abdominal pain. Been going on for 1 week. She has had persistent vomiting over the last 48 hours and has been unable to take her antihypertensive medications. She has intermittent chest pain with this also. The abdominal pain is mainly epigastric and radiates towards her back and somewhat towards her chest. She has had pancreatitis in the past. In addition she has had renal stones. She denies fevers or chills. She is not coughing up any phlegm and denies any shortness of breath even though she is a smoker. She is been constipated and not moved her bowels for the last 2 to 3 days. Taking [place]. She rates the pain 9/10 at this time constant. No sore throat, palpitations, diarrhea, dysuria, shortness of breath, joint pain , rashes, depression, anxiety, visual changes, dizziness, headache. Allergies: Coded Allergies: No Known Allergies (Unverified , 01/29/14) Patient History Past Medical History: see triage record Past Surgical History: Social History: Reports: smoking, drug use - THC Social History Narrative From home Reviewed Nursing Documentation: PMH: Agreed; PSxH: Agreed Nursing Documentation-PMH Past Medical History: No History, Except For Hx Hypertension: Yes Hx Diabetes: Yes Hx Cancer: No Hx Gastrointestinal Problems: No Hx Neurological Problems: No Review of Systems All Other Systems: negative except mentioned in HPI Physical Exam Vital Signs Date Time Temp Pulse Resp B/P (MAP) Pulse Ox O2 Delivery O2 Flow Rate FiO2 04/26/19 08:31 98.2 97 18 165/101 (122) 98 Room Air Sp02 EP Interpretation: reviewed, normal General Appearance: well appearing, no apparent distress, GCS 15 Head: normocephalic Eyes: bilateral eye normal inspection, bilateral eye PERRL, bilateral eye other - Contact lenses ENT: moist mucus membranes Neck: supple Respiratory: lungs clear, normal breath sounds Cardiovascular #1: regular rate, rhythm Cardiovascular #2: 2+ radial (R) Gastrointestinal: normal inspection, normal bowel sounds, no mass, non- distended, no rebound, guarding - Minimal, tenderness - Epigastric Genitourinary: no CVA tenderness Musculoskeletal: back normal, gait/station normal, normal range of motion Neurologic: alert, oriented x3, grossly normal Psychiatric: mood/affect normal Skin: no rash, warm/dry Medical Decision Making Diagnostic Impression: Primary Impression: Acute pancreatitis Qualified Codes: K85.90 - Acute pancreatitis without necrosis or infection, unspecified Additional Impressions: UTI (urinary tract infection) Qualified Codes: N30.00 - Acute cystitis without hematuria Hypertension Qualified Codes: I10 - Essential (primary) hypertension Constipation Qualified Codes: K59.03 - Drug induced constipation ER Course Presents with abdominal pain epigastric and persistent with intractable vomiting. Differential includes pancreatitis, gastritis, peptic ulcer disease, diverticulitis amongst others. Her abdomen is nonsurgical at this time. Evaluation will be with EKG, chest x-ray abdominal film and labs. The patient will be treated with IV hydration, Pepcid, Reglan, Benadryl and morphine. EKG normal sinus rhythm with sinus arrhythmia rate 89. Chest x-ray no infiltrates. Abdomen with increased stool load. Normal white count. CMP with elevated glucose minimally elevated calcium. Elevated lipase. Pyuria. Rocephin ordered. Patient still with pain. Analgesia repeated. Nonsurgical abdomen. Patient admitted to medical floor Dr. Hoffman. Laboratory Tests Test 04/26/19 08:45 White Blood Count 11.1 K/UL (4.8-10.8) H Red Blood Count 5.25 M/UL (4.20-5.40) Hemoglobin 16.1 G/DL (12.0-16.0) H Hematocrit 47.5 % (37.0-47.0) H Mean Corpuscular Volume 91 FL (80-99) Mean Corpuscular Hemoglobin 30.7 PG (27.0-31.0) Mean Corpuscular Hemoglobin Concent 33.8 G/DL (32.0-36.0) Red Cell Distribution Width 11.1 % (11.6-14.8) L Platelet Count 310 K/UL (150-450) Mean Platelet Volume 6.2 FL (6.5-10.1) L Neutrophils (%) (Auto) 65.2 % (45.0-75.0) Lymphocytes (%) (Auto) 26.9 % (20.0-45.0) Monocytes (%) (Auto) 4.9 % (1.0-10.0) Eosinophils (%) (Auto) 2.0 % (0.0-3.0) Basophils (%) (Auto) 1.0 % (0.0-2.0) Prothrombin Time 9.6 SEC (9.30-11.50) Prothrombin Time INR 0.9 (0.9-1.1) PTT 25 SEC (23-33) Urine Color Pale yellow Urine Appearance Clear Urine pH 6 (4.5-8.0) Urine Specific [place] 1.015 (1.005-1.035) Urine Protein 2+ (NEGATIVE) H Urine Glucose (UA) 2+ (NEGATIVE) H Urine Ketones Negative (NEGATIVE) Urine Blood 5+ (NEGATIVE) H Urine Nitrite Negative (NEGATIVE) Urine Bilirubin Negative (NEGATIVE) Urine Urobilinogen Normal MG/DL (0.0-1.0) Urine Leukocyte Esterase 3+ (NEGATIVE) H Urine RBC 10-15 /HPF (0 - 2) H Urine WBC 5-10 /HPF (0 - 2) H Urine Squamous Epithelial Cells Few /LPF (NONE/OCC) Urine Bacteria Few /HPF (NONE) Sodium Level 141 MMOL/L (136-145) Potassium Level 4.2 MMOL/L (3.5-5.1) Chloride Level 101 MMOL/L (98-107) Carbon Dioxide Level 26 MMOL/L (21-32) Anion Gap 14 mmol/L (5-15) Blood Urea Nitrogen 8 mg/dL (7-18) Creatinine 1.1 MG/DL (0.55-1.30) Estimate Glomerular Filtration Rate > 60 mL/min (>60) Glucose Level 201 MG/DL (74-106) H Calcium Level 10.3 MG/DL (8.5-10.1) H Total Bilirubin 0.2 MG/DL (0.2-1.0) Aspartate Amino Transferase (AST) 13 U/L (15-37) L Alanine Aminotransferase (ALT) 28 U/L (12-78) Alkaline Phosphatase 67 U/L (46-116) Troponin I 0.000 ng/mL (0.000-0.056) Total Protein 8.5 G/DL (6.4-8.2) H Albumin 4.0 G/DL (3.4-5.0) Globulin 4.5 g/dL Albumin/Globulin Ratio 0.9 (1.0-2.7) L Lipase 835 U/L (73-393) H EKG Diagnostic Results Rate: normal Rhythm: NSR ST Segments: no acute changes Rhythm Strip Diag. Results EP Interpretation: yes Rhythm: NSR, no PVC's, no ectopy Chest X-Ray Diagnostic Results Chest X-Ray Diagnostic Results : Chest X-Ray Ordered: Yes # of Views/Limited/Complete: 1 View Indication: Other EP Interpretation: Yes Interpretation: no consolidation, no effusion, no pneumothorax Impression: No acute disease Electronically Signed by: Electronically signed by Mark Monique MD Other X-Ray Diagnostic Results Other X-Ray Diagnostic Results : X-Ray ordered: Abdomen # of Views/Limited Vs Complete: 2 View Indication: Pain EP Interpretation: Yes Interpretation: nonspecific bowel gas, no sbo, other - Increased stool load Impression: Other Electronically Signed by: Electronically signed by Mark Monique MD Last Vital Signs Date Time Temp Pulse Resp B/P (MAP) Pulse Ox O2 Delivery O2 Flow Rate FiO2 04/26/19 21:19 169/92 04/26/19 21:00 Room Air 04/26/19 12:57 98.2 61 16 96 Status: improved Disposition: ADMITTED INPATIENT Condition: Serious Scripts No Active Prescriptions or Reported Meds Mark Monique MD Apr 26, 2019 08:56
[2019-04-26] MEDS ORDERED: DiphenhydrAMINE 50mg/ml Inj IVP ONE (09:00)
[2019-04-26] MEDS ORDERED: Metoclopramide 10mg/2ml Inj IVP ONE (09:00)
[2019-04-26] MEDS ORDERED: Morphine Sulfate 4mg/ml Inj (IV USE ONLY) IVP ONE (09:00)
[2019-04-26 09:08] VITALS: BP 168/97
[2019-04-26 09:10] LABS: HEMATOCRIT 47.5 % (37.0-47.0); HEMOGLOBIN 16.1 G/DL (12.0-16.0); LYMPHOCYTES % (AUTO) 26.9 % (20.0-45.0); MEAN CORPUSCULAR VOLUME 91 FL (80-99); MONOCYTES % (AUTO) 4.9 % (1.0-10.0); NEUTROPHILS % (AUTO) 65.2 % (45.0-75.0); PLATELET COUNT 310 K/UL (150-450); RED BLOOD COUNT 5.25 M/UL (4.20-5.40); RED CELL DISTRIBUTION WIDTH 11.1 % (11.6-14.8); WHITE BLOOD COUNT 11.1 K/UL (4.8-10.8)
[2019-04-26 09:21] LABS: INR 0.9 (0.9-1.1)
[2019-04-26 09:29] LABS: ANION GAP 14 mmol/L (5-15); BLOOD UREA NITROGEN 8 mg/dL (7-18); CALCIUM 10.3 MG/DL (8.5-10.1); CARBON DIOXIDE 26 MMOL/L (21-32); CHLORIDE 101 MMOL/L (98-107); CREATININE 1.1 MG/DL (0.55-1.30); POTASSIUM 4.2 MMOL/L (3.5-5.1); SODIUM 141 MMOL/L (136-145)
[2019-04-26 09:33] LABS: APPEARANCE,URINE CLEAR; BILIRUBIN, URINE NEGATIVE (NEGATIVE); COLOR,URINE PALE YELLOW; GLUCOSE, URINE (UA) 2+ (NEGATIVE); KETONES,URINE NEGATIVE (NEGATIVE); LEUKOCYTE ESTERASE ,URINE 3+ (NEGATIVE); NITRITE,URINE NEGATIVE (NEGATIVE); PH,URINE 6 (4.5-8.0); PROTEIN,URINE 2+ (NEGATIVE); UROBILINOGEN,URINE NORMAL MG/DL (0.0-1.0)
[2019-04-26 09:34] LABS: ALANINE AMINOTRANSFERASE 28 U/L (12-78); ALBUMIN/GLOBULIN RATIO 0.9 (1.0-2.7); ALKALINE PHOSPHATASE 67 U/L (46-116); ASPARTATE AMINO TRANSFERASE 13 U/L (15-37); BILIRUBIN,TOTAL 0.2 MG/DL (0.2-1.0)
--- NOTE | 2019-04-26 09:58 | NUR ---
Note isa in EDM - 04/26/19 at 1001 by LYNDONO ED Nurse Note: spoke with Micki at [facility], nurse to nurse report to be given to [phone]. Patient to be transferred after 1200PM. and report to be given around that time per Lynsey Menon
[2019-04-26] MEDS ORDERED: cefTRIAXone 1 GM in NS 55 ML IVPB ONE (10:00)
[2019-04-26] MEDS ORDERED: HYDROmorphone 1mg/ml Carpuject IVP ONE (10:45)
--- NOTE | 2019-04-26 10:51 | NUR ---
ED Nurse Note: lemon swabs provided patient as requested.
[2019-04-26 10:52] VITALS: BP 149/89
--- NOTE | 2019-04-26 12:23 | Diagnostic Imaging Report ---
Indication: Abdominal pain Comparison: 08/19/2018 Single view of the abdomen obtained Findings: There is moderate formed stool within the colon. Bowel gas pattern is nonspecific. No ectopic calcifications are identified. No abnormal gas collections identified. IMPRESSION: Moderate stool
--- NOTE | 2019-04-26 12:23 | Diagnostic Imaging Report ---
Indication: Dyspnea Comparison: 08/19/2018 A single view chest radiograph was obtained. Findings: Cardiomediastinal appearance is within normal limits for age. The lungs are clear. Pulmonary vascularity is appropriate. The diaphragmatic contour is smooth and costophrenic angles are sharp. No pleural effusions are identified. The bones are unremarkable. Impression: No acute findings
--- NOTE | 2019-04-26 12:51 | NUR ---
ED Nurse Note: Reports given to Yasemin LIU, endorsed all plan of care to Yasemin LIU.
--- NOTE | 2019-04-26 12:57 | NUR ---
ED Nurse Note: patient transferred to 321 with all of her belongigns with [facility] [employer] BEYER.
--- NOTE | 2019-04-26 14:25 | NUR ---
NURSE NOTES: Dr Hoffman phoned for orders gave orders for NS at 100 cc/hr, NPO status, hydromorphone 1mg ivp q4 hours prn pain
[2019-04-26] MEDS ORDERED: HYDROmorphone 1mg/NS 50ml IVPB 50 ML IVPB PRN (14:30)
[2019-04-26] MEDS: HYDROmorphone 1mg/ml Carpuject IVP PRN ×2 (14:52→20:08)
--- NOTE | 2019-04-26 16:52 | NUR ---
*-* INSURANCE *-* ALL CLINICALS HAVE BEEN FAXED TO"[facility] to provide the following Admission Authorization Number: [id number] Nurse Chemical Operations And Training will be: Rajeev Bergman' Telephone number: [phone] ext [phone] Rajeev's
--- NOTE | 2019-04-26 17:10 | NUR ---
NURSE NOTES: Pt currently sleeping
--- NOTE | 2019-04-26 19:08 | NUR ---
NURSE NOTES: Pt is requesting medication for nausea . Dr Hoffman is here, made aware of pt request. Stated he would put the orders in
--- NOTE | 2019-04-26 19:45 | NUR ---
NURSE NOTES: Patient in bed awake and oriented. VSS. No SOB noted. 8/10 Abdominal pain noted. PRN pain medication given. Tolerated well. Patient has episodes of nausea PRN anti emetics given. Refused Insulin. R/B explained. Needs attended. Call light within reach. In stable condition.
--- NOTE | 2019-04-26 19:46 | NUR ---
NURSE NOTES: Report given to Jose gallardo made aware of pending labs and specimen that needs to be collected. Pt is currently sleeping.
--- NOTE | 2019-04-26 19:49 | NUR ---
NURSE NOTES: Pt is ambulatory voids , continent of urine. Did not have a BM today per pt
--- NOTE | 2019-04-26 19:50 | NUR ---
HAND-OFF: Report given to Jose LIU.
[2019-04-26] MEDS ORDERED: NovoLOG Insulin Flexpen SUBQ SCH (20:30)
[2019-04-26] MEDS: NovoLOG Insulin Flexpen SUBQ SCH (21:00)
[2019-04-26] MEDS: Heparin 5000 units/ml inj SUBQ SCH (21:28)
[2019-04-27] VITALS: BP 152/84
[2019-04-27] MEDS: HYDROmorphone 1mg/ml Carpuject IVP PRN ×4 (00:56→17:35)
--- NOTE | 2019-04-27 01:15 | History and Physical Report ---
DATE OF ADMISSION: 04/26/2019 REASON FOR ADMISSION: Abdominal pain with history of pancreatitis. HISTORY OF PRESENT ILLNESS: This an female, age 58 has a history of prior idiopathic pancreatitis. She was hospitalized here on several occasions in the past and did not have a definitive diagnostic workup. On her last inpatient stay, recommendations for an MRCP were made. However, the patient elected to leave prior to completion of the study. Over the past week, she has had abdominal pain. She has had persistent vomiting over the past 48 hours and has not been able to take any of her usual medications. She notes chest and back pain with the vomiting. She has not had any blood-tinged or brown emesis. She denies alcohol use. She does have a prior history of high triglycerides, but reportedly only in the 250 range. She has not had any other recent illnesses, but has had some mild nonproductive cough and congestion and has been constipated. PAST MEDICAL HISTORY: 1. Hypertension. 2. Type 2 diabetes. MEDICATIONS: Reviewed and reconciled. ALLERGIES: None. SOCIAL HISTORY: Active smoker. Denies alcohol or substance abuse. REVIEW OF SYSTEMS: Otherwise unremarkable. PHYSICAL EXAMINATION: GENERAL: Moderately obese, in moderate distress due to nausea at this time. VITAL SIGNS: Blood pressure in the emergency room was 165/101, presently 149/89 with heart rate 61, and respiratory rate 16. HEENT: Conjunctivae pink. Oropharynx clear. NECK: Supple. Jugular venous pressure normal. LUNGS: Clear. CARDIAC: Regular rhythm and rate. Normal S1, S2 with no murmur, rub, or gallop. BREASTS: Without discrete masses. ABDOMEN: Moderately obese. Diffusely tender especially in the upper quadrants with no guarding or rebound. There are no pulsatile masses. EXTREMITIES: Without edema. IMAGING: Results of prior hospital imaging studies were reviewed. Abdominal x-ray today revealed nonspecific bowel gas pattern. LABORATORY DATA: White count 11.1 and hemoglobin 16.1. Urinalysis with 5 to 10 white cells and 10 to 15 red cells. Chemistry reveals sodium 141, potassium 4.2, bicarbonate 26, BUN 8, creatinine 1.1, and glucose 201. Troponin negative. Albumin 4. Lipase 835. Calcium 10.3. IMPRESSION: 1. Probable recurring pancreatitis. 2. No signs of acute hepatobiliary process. 3. Type 2 diabetes mellitus with elevated blood glucose levels. 4. Hypertensive heart disease with elevated blood pressure. PLAN: 1. NPO. 2. Intravenous fluids. 3. Pain control. 4. Antiemetics. 5. Insulin coverage by sliding scale. 6. DVT prophylaxis. 7. Topical antihypertensive therapy. 8. GI consultation. Mark Hoffman M.D. DR: APOLONIA JOB#: [id number] CC:
[2019-04-27 04:00] VITALS: BP 139/87
[2019-04-27] MEDS: NovoLOG Insulin Flexpen SUBQ SCH ×4 (06:10→21:00)
[2019-04-27] MEDS: Heparin 5000 units/ml inj SUBQ SCH ×3 (06:11→21:05)
[2019-04-27 07:23] LABS: BASOPHILS % (AUTO) 0.6 % (0.0-2.0); HEMATOCRIT 43.1 % (37.0-47.0); HEMOGLOBIN 14.9 G/DL (12.0-16.0); LYMPHOCYTES % (AUTO) 25.6 % (20.0-45.0); MEAN CORPUSCULAR VOLUME 90 FL (80-99); MONOCYTES % (AUTO) 6.3 % (1.0-10.0); NEUTROPHILS % (AUTO) 65.5 % (45.0-75.0); PLATELET COUNT 294 K/UL (150-450); RED BLOOD COUNT 4.79 M/UL (4.20-5.40); RED CELL DISTRIBUTION WIDTH 10.9 % (11.6-14.8); WHITE BLOOD COUNT 8.3 K/UL (4.8-10.8)
--- NOTE | 2019-04-27 07:35 | General Progress Note ---
Assessment/Plan Assessment/Plan: GI CONSULT ATSP for evaluation of pancreatitis Full note to follow MRCP ordered for today Thank you Radha Rondon MD Subjective Allergies: Coded Allergies: No Known Allergies (Unverified , 01/29/14) Objective Last 24 Hour Vital Signs Date Time Temp Pulse Resp B/P (MAP) Pulse Ox O2 Delivery O2 Flow Rate FiO2 04/27/19 06:25 171/100 04/27/19 04:00 98.6 82 139/87 (104) 04/27/19 00:00 98.2 88 152/84 (106) 04/26/19 21:19 169/92 04/26/19 21:00 Room Air 04/26/19 14:21 Room Air 04/26/19 12:57 98.2 61 16 149/89 96 Room Air 04/26/19 11:20 98.2 04/26/19 10:52 98.2 61 16 149/89 96 Room Air 04/26/19 09:32 98.2 04/26/19 09:09 89 19 Room Air 04/26/19 09:08 98.2 89 19 168/97 100 Room Air 04/26/19 08:31 98.2 97 18 165/101 (122) 98 Room Air Intake and Output 04/26/19 04/27/19 18:59 06:59 Intake Total 400 ml 600 ml Balance 400 ml 600 ml Intake IV Total 400 ml 600 ml Laboratory Tests 04/26/19 08:45: White Blood Count 11.1H, Red Blood Count 5.25, Hemoglobin 16.1H, Hematocrit 47.5H, Mean Corpuscular Volume 91, Mean Corpuscular Hemoglobin 30.7, Mean Corpuscular Hemoglobin Concent 33.8, Red Cell Distribution Width 11.1L, Platelet Count 310, Mean Platelet Volume 6.2L, Neutrophils (%) (Auto) 65.2, Lymphocytes (%) (Auto) 26.9, Monocytes (%) (Auto) 4.9, Eosinophils (%) (Auto) 2.0, Basophils (%) (Auto) 1.0, Prothrombin Time 9.6, Prothromb Time International Ratio 0.9, Activated Partial Thromboplast Time 25, Urine Color Pale yellow, Urine Appearance Clear, Urine pH 6, Urine Specific [place] 1.015, Urine Protein 2+H, Urine Glucose (UA) 2+H, Urine Ketones Negative, Urine Blood 5 +H, Urine Nitrite Negative, Urine Bilirubin Negative, Urine Urobilinogen Normal , Urine Leukocyte Esterase 3+H, Urine RBC 10-15H, Urine WBC 5-10H, Urine Squamous Epithelial Cells Few, Urine Bacteria Few, Sodium Level 141, Potassium Level 4.2, Chloride Level 101, Carbon Dioxide Level 26, Anion Gap 14, Blood Urea Nitrogen 8, Creatinine 1.1, Estimat Glomerular Filtration Rate > 60, Glucose Level 201H, Calcium Level 10.3H, Total Bilirubin 0.2, Aspartate Amino Transf (AST/SGOT) 13L, Alanine Aminotransferase (ALT/SGPT) 28, Alkaline Phosphatase 67, Troponin I 0.000, Total Protein 8.5H, Albumin 4.0, Globulin 4.5 , Albumin/Globulin Ratio 0.9L, Lipase 835H 04/27/19 05:45: White Blood Count [Pending], Red Blood Count [Pending], Hemoglobin [Pending], Hematocrit [Pending], Mean Corpuscular Volume [Pending], Mean Corpuscular Hemoglobin [Pending], Mean Corpuscular Hemoglobin Concent [Pending], Red Cell Distribution Width [Pending], Platelet Count [Pending], Mean Platelet Volume [ Pending], Neutrophils (%) (Auto) [Pending], Lymphocytes (%) (Auto) [Pending], Monocytes (%) (Auto) [Pending], Eosinophils (%) (Auto) [Pending], Basophils (%) (Auto) [Pending], Sodium Level [Pending], Potassium Level [Pending], Chloride Level [Pending], Carbon Dioxide Level [Pending], Blood Urea Nitrogen [Pending], Creatinine [Pending], Estimat Glomerular Filtration Rate [Pending], Glucose Level [Pending], Calcium Level [Pending], Total Bilirubin [Pending], Aspartate Amino Transf (AST/SGOT) [Pending], Alanine Aminotransferase (ALT/SGPT) [Pending] , Alkaline Phosphatase [Pending], Total Protein [Pending], Albumin [Pending], Lipase [Pending], Direct Bilirubin [Pending], Triglycerides Level [Pending], Cholesterol Level [Pending], LDL Cholesterol [Pending], HDL Cholesterol [Pending ], Cholesterol/HDL Ratio [Pending], Amylase Level [Pending], Carcinoembryonic Antigen [Pending], Thyroid Stimulating Hormone (TSH) [Pending] Height (Feet): 5 Height (Inches): 9.00 Weight (Pounds): 210 Radha Rondon MD Apr 27, 2019 07:35
--- NOTE | 2019-04-27 07:50 | NUR ---
NURSE NOTES: pt remains NPO has pending procedure for this AM. Call light is in reach. Plan of care to include pain management, and monitoring for symptoms of nausea.
[2019-04-27 08:00] VITALS: BP 167/99
[2019-04-27 08:05] LABS: ALANINE AMINOTRANSFERASE 27 U/L (12-78); ALBUMIN 3.7 G/DL (3.4-5.0); ALKALINE PHOSPHATASE 60 U/L (46-116); AMYLASE 231 U/L (25-115); ANION GAP 12 mmol/L (5-15); ASPARTATE AMINO TRANSFERASE 15 U/L (15-37); BILIRUBIN,DIRECT < 0.1 MG/DL (0.0-0.3); BILIRUBIN,TOTAL 0.4 MG/DL (0.2-1.0); BLOOD UREA NITROGEN 6 mg/dL (7-18); CALCIUM 9.2 MG/DL (8.5-10.1); CARBON DIOXIDE 27 MMOL/L (21-32); CHLORIDE 102 MMOL/L (98-107); CHOLESTEROL 202 MG/DL (< 200); CREATININE 0.8 MG/DL (0.55-1.30); HDL CHOLESTEROL 61 MG/DL (40-60); POTASSIUM 3.6 MMOL/L (3.5-5.1); SODIUM 141 MMOL/L (136-145); TRIGLYCERIDES 190 MG/DL (30-150)
--- NOTE | 2019-04-27 11:06 | NUR ---
*-* INSURANCE *-* ALL CLINICALS HAVE BEEN FAXED TO"[facility] to provide the following Admission Authorization Number: [id number] Nurse Inflated Ball Molder will be: Rajeev Bergman' Telephone number: [phone] ext [phone] Rajeev's Addendum: 04/27/19 at 1121 by CHIARA MCCABE CM UNABLE TO CONTACT NCM: PRATIMA STACY TO CALL ME JUST WANT TO CONIRM SHE IS RECEIVING CLINICALS
[2019-04-27] MEDS ORDERED: LORazepam Inj 2mg/ml 1ml IV PRN (12:45)
[2019-04-27 16:00] VITALS: BP 137/87
--- NOTE | 2019-04-27 16:03 | NUR ---
CASE MANAGEMENT:REVIEW 58 YR OLD FEMALE PRESENTED TO ER CC: ABDOMINAL PAIN. N/V X1 WEEK SI: ACUTE PANCREATITIS. UTI. HTN 98.2 97 18 165/101 98% ON RA WBC+11.1 LIPASE+835 IS: IV REGLAN IV PEPCID IV MORPHINE 1L NS BOLUS X2 IV ROCEPHIN IV DILAUDID CHEST XRAY ABD XRAY : TO MED/SURG [facility]
--- NOTE | 2019-04-27 16:44 | Diagnostic Imaging Report ---
Indication: Abdominal pain has only, vomiting, history of renal stones and pancreatitis Technique: Coronal and axial single shot fast spin-echo breath-hold, axial T2 FRFSE, 2-D thick slab MRCP, AXIAL 2-D FIESTA fat saturated, axial 3-D dual echo breath-hold, water weighted axial LAVA FLEX, revealed 3-D MRCP images were obtained of the abdomen. MIP reconstructions were generated of the bile ducts Comparison: 10/17/2014. Reference made to abdominal sonogram 03/11/2019, abdomen pelvis CT 08/20/2018 Findings: There is some image degradation due to motion artifact. The gallbladder is unremarkable, without evidence of filling defects to suggest calculi or any wall thickening. The common bile duct is somewhat dilated, measuring 10 mm in diameter. No intraluminal filling defects or other findings to suggest choledocholithiasis demonstrated. No evidence of pancreatic head mass or ampullary mass. The pancreatic duct is ectatic, measuring up to 4 mm in diameter. The pancreas itself demonstrates prominence of the pancreatic head and body/tail junction. The pancreatic head appears similar to the exam. The prominence of the body is slightly more striking than on the previous study. The T2-weighted images do suggest some peripancreatic edema, particularly surrounding the enlarged portion of the pancreatic body fat stranding most the pancreas. This does not extend far beyond the pancreas, however.. No discrete fluid collections are demonstrated. The liver demonstrates some decreased signal on the fat saturated sequences, consistent with fatty change reported on prior sonogram no definite focal abnormality. The spleen, adrenals are unremarkable. Parapelvic cysts are seen in the kidneys bilaterally. The coronal images include the pelvis. A 5 cm cyst is seen in the right adnexal region. Impression: Enlarged pancreatic head and by/tail junction region, with some surrounding peripancreatic edema, suspicious for acute pancreatitis. Correlate with clinical and laboratory findings Negative for gallstones or evidence of choledocholithiasis Mildly ectatic pancreatic duct, also previously demonstrated Mildly dilated common bile duct, without downstream obstructing lesion demonstrated. Probably age-related. This is slightly increased from the previous study of 2014 5 cm right ovarian cyst. In retrospect, a 2.5 cm cyst in this location is visible on the prior MRI. 4.8 cm cyst was reported on 08/20/[address] Further evaluation with ultrasound is recommended if this has not been done already.
--- NOTE | 2019-04-27 16:51 | Cardiology Report ---
APPROVED REPORT EKG Measurement Heart [id number] MD [id number] Normal sinus rhythm with sinus arrhythmia Normal ECG
--- NOTE | 2019-04-27 17:00 | NUR ---
NURSE NOTES: Pt sleeping required use of Ativan related to fear for MRI current plan followed. In stable condition despite use of pain medication sleeping intermittently . Remains NPO
--- NOTE | 2019-04-27 19:33 | NUR ---
NURSE NOTES: Patient in bed awake and oriented. Complaining of Lower abdominal pain. PRN pain medication given. Tolerated well. Reminded patient of her NPO status. Hat placed in the toilet for Urine collection. No signs of distress noted. Needs attended. Call light within reach. In stable condition.
[2019-04-27 20:00] VITALS: BP 168/102
--- NOTE | 2019-04-27 23:45 | Progress Note ---
DATE: 04/27/2019 INTERNAL MEDICINE PROGRESS NOTE SUBJECTIVE: The patient still has abdominal pain and nausea, but no vomiting. She is remaining NPO. Imaging studies are in progress of the abdominal cavity related to pancreatitis recurrences. OBJECTIVE: VITAL SIGNS: Blood pressure 168/102, pulse 106, respirations 18, afebrile. LUNGS: Clear. CARDIAC: Regular. ABDOMEN: Slightly distended, mild to moderately tender in the upper quadrants. No guarding or rebound. EXTREMITIES: Without edema. LABORATORY DATA: White count 8.3, hemoglobin 14.9. Potassium 3.6, BUN 6, creatinine 0.8. Triglycerides 190. Lipase 914, amylase 231, TSH 0.6. IMPRESSION: 1. Recurring pancreatitis, etiology unclear. 2. Type 2 diabetes mellitus. 3. Hypertriglyceridemia. 4. Hypertension with labile blood pressure. PLAN: 1. Advanced pain control. 2. Continue NPO and IV fluids. 3. Replace electrolytes as needed. 4. Await results of MRCP study. 5. GI follow up. Mark Hoffman M.D. DR: GUSTABO JOB#: [id number] CC:
[2019-04-28] VITALS: BP 158/96
[2019-04-28 04:00] VITALS: BP 162/91
--- NOTE | 2019-04-28 04:00 | NUR ---
NURSE NOTES: Urine collected for drug screen. Amlodipine one time dose given. MD increased pain medication dose. Given PRN dilaudid 2mg tolerated well. Patient asleep at the moment. In stable condition.
[2019-04-28] MEDS: NovoLOG Insulin Flexpen SUBQ SCH ×4 (05:31→21:00)
[2019-04-28] MEDS: Heparin 5000 units/ml inj SUBQ SCH ×3 (05:31→21:18)
[2019-04-28 07:15] LABS: BASOPHILS % (AUTO) 0.8 % (0.0-2.0); EOSINOPHILS % (AUTO) 1.1 % (0.0-3.0); HEMATOCRIT 42.6 % (37.0-47.0); HEMOGLOBIN 14.8 G/DL (12.0-16.0); LYMPHOCYTES % (AUTO) 31.1 % (20.0-45.0); MEAN CORPUSCULAR VOLUME 90 FL (80-99); MONOCYTES % (AUTO) 6.1 % (1.0-10.0); PLATELET COUNT 284 K/UL (150-450); RED BLOOD COUNT 4.72 M/UL (4.20-5.40); RED CELL DISTRIBUTION WIDTH 10.9 % (11.6-14.8); WHITE BLOOD COUNT 8.3 K/UL (4.8-10.8)
[2019-04-28 07:22] LABS: ALANINE AMINOTRANSFERASE 29 U/L (12-78); ALBUMIN 3.5 G/DL (3.4-5.0); ALBUMIN/GLOBULIN RATIO 0.8 (1.0-2.7); ALKALINE PHOSPHATASE 54 U/L (46-116); ANION GAP 13 mmol/L (5-15); ASPARTATE AMINO TRANSFERASE 22 U/L (15-37); BILIRUBIN,TOTAL 0.3 MG/DL (0.2-1.0); BLOOD UREA NITROGEN 12 mg/dL (7-18); CALCIUM 9.2 MG/DL (8.5-10.1); CARBON DIOXIDE 24 MMOL/L (21-32); CHLORIDE 103 MMOL/L (98-107); CREATININE 0.8 MG/DL (0.55-1.30); POTASSIUM 4.1 MMOL/L (3.5-5.1); SODIUM 140 MMOL/L (136-145)
--- NOTE | 2019-04-28 07:56 | NUR ---
NURSE NOTES: Patient awake, alert x4; on room air, no sing of distress and shortness of breath; no sing of chest pain; IV Left AC 20G NS 100cc running; patient is NPO, sign at the bed side and patient is aware, nursing assistants Jordin is aware; side rails up x2, breaks engaged, bed at lowest position; call light within reach; will keep monitoring.
[2019-04-28 08:00] VITALS: BP 142/87
[2019-04-28 12:00] VITALS: BP 122/73
--- NOTE | 2019-04-28 15:15 | NUR ---
CASE MANAGEMENT:REVIEW 04/28/19 SI: PANCREATITIS 97.3 64 19 122/73 97% ON RA GLUCOSE+128 LIPASE+1642 (WENT UP) IS:NORVASC PO QD IV DILAUDID Q4HRS PRN HEPARIN SQ Q8HRS CLONIDINE PATCH QWEEK IVF@100/HR : MED/SURG STATUS 3 EAST DCP: FROM HOME
--- NOTE | 2019-04-28 15:55 | NUR ---
*-* INSURANCE *-* ALL CLINICALS HAVE BEEN FAXED TO"[facility] to provide the following Admission Authorization Number: [id number] Nurse Signal Tower Operator will be: Rajeev Bergman' Telephone number: [phone] ext [phone] Rajeev's
[2019-04-28 16:00] VITALS: BP 132/80
--- NOTE | 2019-04-28 19:37 | NUR ---
HAND-OFF: Report given to NOE Blount.
[2019-04-28 20:00] VITALS: BP 134/71
--- NOTE | 2019-04-28 20:49 | NUR ---
NURSES NOTE: Met patient in bed, alert and oriented x4, able to communicate needs. No outward s/s of distress. Breathing pattern is even and unlabored. Pt on room air. VS within normal limits. Patient reports 7/10 pain in abdominal area; however, not due for pain meds for another 2 hours. Will monitor pain. IV (L) AC is intact, patent, with no symptoms of infiltration/infection. Fluids running according to eMAR. Patient will continue to be monitored. Bed at lowest level. Call light within reach.
--- NOTE | 2019-04-28 22:59 | General Progress Note ---
Assessment/Plan Assessment/Plan: Assessment - acute pancreatitis - abd pain - rising lipase noted Recommendations - keep NPO another day - follow labs - OOB Subjective Allergies: Coded Allergies: No Known Allergies (Unverified , 01/29/14) Subjective Still with abd pain MRI noted - c/w pancreatitis no CBD stone Objective Last 24 Hour Vital Signs Date Time Temp Pulse Resp B/P (MAP) Pulse Ox O2 Delivery O2 Flow Rate FiO2 04/28/19 21:00 Room Air 04/28/19 20:00 97.8 57 18 134/71 (92) 98 04/28/19 19:29 98.7 04/28/19 16:00 98.7 79 20 132/80 (97) 99 04/28/19 12:00 97.3 64 19 122/73 (89) 97 04/28/19 09:00 Room Air 04/28/19 08:52 62 142/87 04/28/19 08:00 97.9 62 19 142/87 (105) 97 04/28/19 05:30 169/93 04/28/19 04:00 98.0 97 18 162/91 (114) 99 04/28/19 00:31 100 158/94 04/28/19 00:00 98.2 102 18 158/96 (116) 99 Intake and Output 04/27/19 04/28/19 19:00 07:00 Intake Total 700 ml Balance 700 ml Intake IV Total 700 ml Laboratory Tests 04/28/19 00:48: Urine Opiates Screen PositiveH, Urine Barbiturates Screen Negative, Phencyclidine (PCP) Screen Negative, Urine Amphetamines Screen Negative, Urine Benzodiazepines Screen PositiveH, Urine Cocaine Screen Negative, Urine Marijuana (THC) Screen PositiveH 04/28/19 05:10: White Blood Count 8.3, Red Blood Count 4.72, Hemoglobin 14.8, Hematocrit 42.6, Mean Corpuscular Volume 90, Mean Corpuscular Hemoglobin 31.4H, Mean Corpuscular Hemoglobin Concent 34.8, Red Cell Distribution Width 10.9L, Platelet Count 284, Mean Platelet Volume 5.7L, Neutrophils (%) (Auto) 61.0, Lymphocytes (%) (Auto) 31.1, Monocytes (%) (Auto) 6.1, Eosinophils (%) (Auto) 1.1, Basophils (%) (Auto ) 0.8, Sodium Level 140, Potassium Level 4.1, Chloride Level 103, Carbon Dioxide Level 24, Anion Gap 13, Blood Urea Nitrogen 12, Creatinine 0.8, Estimat Glomerular Filtration Rate > 60, Glucose Level 128H, Calcium Level 9.2, Total Bilirubin 0.3, Aspartate Amino Transf (AST/SGOT) 22, Alanine Aminotransferase ( ALT/SGPT) 29, Alkaline Phosphatase 54, Total Protein 7.8, Albumin 3.5, Globulin 4.3, Albumin/Globulin Ratio 0.8L, Lipase 1642H Height (Feet): 5 Height (Inches): 9.00 Weight (Pounds): 208 Objective WDWN NCAT supple CTA RRR abd soft, (+) Epigastric TTP non edema Radha Rondon MD Apr 28, 2019 22:59
[2019-04-29] VITALS: BP 144/77
--- NOTE | 2019-04-29 01:45 | Progress Note ---
DATE: 04/28/2019 INTERNAL MEDICINE PROGRESS NOTE SUBJECTIVE: Abdominal pain, nausea, and vomiting persists, but has slightly improved. MRCP reviewed. Findings notable for pancreatitis with no biliary process. Incidental ovarian cyst noted, which has increased in size from 2.5 to 5 cm. OBJECTIVE: VITAL SIGNS: Blood pressure 122/72, pulse 64, and respirations 16. ABDOMEN: Slightly distended. back tender pulp drier in the midepigastric region. No guarding or rebound. EXTREMITIES: With no calf tenderness or edema. LABORATORY DATA: Urine tox screen is positive for opiates, benzodiazepines, and marijuana. Laboratories notable for lipase increasing to 1600. IMPRESSION: 1. Acute pancreatitis. 2. Ovarian cyst. 3. No signs of acute biliary process or obstruction. 4. Elevated CEA of 13. PLAN: 1. GI follow up. 2. Continue NPO. 3. Continue hydration. 4. Follow up electrolyte studies. 5. Consider colonoscopy. Mark Hoffman M.D. DR: APOLONIA JOB#: [id number] CC:
[2019-04-29 04:00] VITALS: BP 163/72
--- NOTE | 2019-04-29 04:56 | NUR ---
NURSES NOTES: Pt complaining of indigestion at apprx 2300. Stated it was an uncomfortable feeling and pain in abdominal area of 7/10. Dilaudid 2mg given. Upon reassessment pt stated pain was 3/10 and feeling of indigestion had subsided. At apprx 0345 patient stated she had a feeling of tightness in her chest. Breathing pattern unlabored, o2 STAT within normal limits, SBP 163. PRN clonidine 0.1 mg given. 15 minutes F/u reassessment pt stated chest tightness had dissipated. RN Will f/u with reassessment bp. Will continue to monitor.
[2019-04-29] MEDS: Heparin 5000 units/ml inj SUBQ SCH ×3 (05:34→22:09)
[2019-04-29] MEDS: NovoLOG Insulin Flexpen SUBQ SCH ×4 (05:49→21:00)
--- NOTE | 2019-04-29 07:43 | NUR ---
HAND OFF: Report given to paulina Rubio. Patient in stable condition.
--- NOTE | 2019-04-29 07:44 | NUR ---
NURSE NOTES: Received patient awake alert and oriented, sitting up comfortably in bed. IV at left antecubital, 20 gauge, infusing NS @ 100ml/hour. Bed at lowest level with 2 side rails up. Call light within reach. In no apparent distress at this time. Will continue to monitor.
[2019-04-29 08:00] VITALS: BP 144/86
--- NOTE | 2019-04-29 11:17 | NUR ---
CASE MANAGEMENT:REVIEW 04/29/19 SI: ACUTE PANCREATITIS. OVARIAN CYST 97.9 84 20 144/86 99% ON RA LAST LIPASE+1642 IS: IVF@100/HR NORVASC PO QD IV DILAUDID Q4HRS PRN HEPARIN SQ Q8HRS CLONIDINE PATCH QWEEK : TELEMETRY STATUS DCP: PATIENT IS FROM HOME
--- NOTE | 2019-04-29 11:49 | Diagnostic Imaging Report ---
Indication: History of ovarian cyst. Follow-up. Postmenopausal 58-year-old female Technique: Grayscale and duplex Doppler imaging of the pelvis performed utilizing a transabdominal and endovaginal scan. Comparison: CT 08/20/2018 Findings: Trace fluid demonstrated within the endometrial canal. Endometrial thickness is about 6 mm. There is trace free fluid. There is a large right adnexal cyst measuring approximately 4.8 x 3.4 x 4.8 cm. This is a unilocular cyst with no internal echoes, no mural nodularity within imperceptible wall and good through transmission. This is presumably ovarian although the ovary itself is not seen and there is no separately demonstrated right ovary. The left ovary is demonstrated and measures 3.4 x 2.3 cm. Uterus is slightly heterogeneous and measures approximately 7.5 x 4.7 x 3.5 cm. IMPRESSION: Unilocular simple 4.8 cm right ovarian cyst. Clinical evaluation and consideration is needed. Trace fluid in the endometrial canal. Trace free fluid.
[2019-04-29 12:00] VITALS: BP 149/79
--- NOTE | 2019-04-29 12:01 | General Progress Note ---
Assessment/Plan Assessment/Plan: Assessment - acute pancreatitis - clinically improving, but lipase was rising up to yesterday - abd pain - improved - rising lipase noted Recommendations - Re check lipase today - If lipase lower, begin clears - OOB Subjective Allergies: Coded Allergies: No Known Allergies (Unverified , 01/29/14) Subjective Feels better less pain no lab results Objective Last 24 Hour Vital Signs Date Time Temp Pulse Resp B/P (MAP) Pulse Ox O2 Delivery O2 Flow Rate FiO2 04/29/19 09:59 97.5 04/29/19 09:13 84 144/86 04/29/19 09:00 Room Air 04/29/19 08:00 97.9 84 20 144/86 (105) 99 04/29/19 04:20 163/72 04/29/19 04:00 97.5 60 17 163/72 (102) 97 04/29/19 00:00 97.7 62 18 144/77 (99) 98 04/28/19 21:00 Room Air 04/28/19 20:00 97.8 57 18 134/71 (92) 98 04/28/19 16:00 98.7 79 20 132/80 (97) 99 04/28/19 12:00 97.3 64 19 122/73 (89) 97 Intake and Output 04/28/19 04/29/19 18:59 06:59 Intake Total 1200 ml 1000 ml Balance 1200 ml 1000 ml Intake IV Total 1200 ml 1000 ml Height (Feet): 5 Height (Inches): 9.00 Weight (Pounds): 208 Objective WDWN NCAT supple CTA RRR abd soft, (+) less Epigastric TTP non edema Radha Rondon MD Apr 29, 2019 12:00
[2019-04-29 16:00] VITALS: BP 139/73
--- NOTE | 2019-04-29 16:09 | NUR ---
*-* INSURANCE *-* ALL CLINICALS HAVE BEEN FAXED TO"[facility] to provide the following Admission Authorization Number: [id number] Nurse Forepart Rounder will be: Rajeev Bergman' Telephone number: [phone] ext [phone] Rajeev's
--- NOTE | 2019-04-29 19:25 | NUR ---
HAND-OFF: Report given to NOE Johns.
[2019-04-29 20:00] VITALS: BP 163/84
--- NOTE | 2019-04-29 23:11 | NUR ---
NURSES NOTE: Received pt in bed, alert and oriented, able to communicate needs. Pt displays no outward s/s of distress. Breathing pattern is unlabored and even. Iv left AC is intact and running NS at 100cc/hr. Patient states pain is at acceptable level at 3/10. VS taken. SBP 163. Clonidine 0.1 mg given PRN. All 2100 meds due given. Bed at lowest level, call light within reach. Will continue to monitor.
[2019-04-30] VITALS: BP 146/73
--- NOTE | 2019-04-30 | Progress Note ---
DATE: 04/29/2019 INTERNAL MEDICINE PROGRESS SUBJECTIVE: Abdominal pain slightly better. Still nauseated. No vomiting. Remains NPO on IV fluids. OBJECTIVE: VITAL SIGNS: Blood pressure 149/79, pulse 59, and respirations 20. LUNGS: Clear. CARDIAC: Regular. Normal S1, S2 with a fourth heart sound. ABDOMEN: Still diffusely tender especially in the upper quadrants. No guarding or rebound. EXTREMITIES: No edema. DIAGNOSTIC DATA: Vaginal ultrasound reveals simple 4.8 cm cyst on the left. IMPRESSION: 1. Acute pancreatitis. 2. Elevated CEA level. 3. Ovarian cyst. 4. Elevated blood pressure in the setting of hypertension. 5. Type 2 diabetes mellitus. 6. Lipase down to 1199. PLAN: 1. NPO. 2. Intravenous fluids. 3. Pain control. 4. Repeat imaging of the pancreas once acute pancreatitis resolved. 5. Panendoscopy for diagnostic purposes to follow. 6. Routine followup with imaging of the ovarian cyst per real estate office manager. Mark Hoffman M.D. DR: APOLONIA JOB#: [id number] CC:
[2019-04-30 04:00] VITALS: BP 156/84
[2019-04-30] MEDS: Heparin 5000 units/ml inj SUBQ SCH ×3 (05:09→21:12)
[2019-04-30] MEDS: NovoLOG Insulin Flexpen SUBQ SCH ×4 (05:31→21:00)
[2019-04-30 06:39] LABS: BASOPHILS % (AUTO) 0.7 % (0.0-2.0); EOSINOPHILS % (AUTO) 1.3 % (0.0-3.0); HEMATOCRIT 41.6 % (37.0-47.0); HEMOGLOBIN 14.4 G/DL (12.0-16.0); LYMPHOCYTES % (AUTO) 37.1 % (20.0-45.0); MEAN CORPUSCULAR VOLUME 90 FL (80-99); MONOCYTES % (AUTO) 7.2 % (1.0-10.0); NEUTROPHILS % (AUTO) 53.7 % (45.0-75.0); PLATELET COUNT 271 K/UL (150-450); RED BLOOD COUNT 4.65 M/UL (4.20-5.40); RED CELL DISTRIBUTION WIDTH 10.7 % (11.6-14.8); WHITE BLOOD COUNT 6.8 K/UL (4.8-10.8)
[2019-04-30 07:26] LABS: ALANINE AMINOTRANSFERASE 28 U/L (12-78); ALBUMIN 3.4 G/DL (3.4-5.0); ALKALINE PHOSPHATASE 48 U/L (46-116); ANION GAP 13 mmol/L (5-15); ASPARTATE AMINO TRANSFERASE 24 U/L (15-37); BILIRUBIN,DIRECT < 0.1 MG/DL (0.0-0.3); BILIRUBIN,TOTAL 0.3 MG/DL (0.2-1.0); BLOOD UREA NITROGEN 9 mg/dL (7-18); CALCIUM 8.9 MG/DL (8.5-10.1); CARBON DIOXIDE 24 MMOL/L (21-32); CHLORIDE 104 MMOL/L (98-107); CREATININE 0.7 MG/DL (0.55-1.30); POTASSIUM 3.7 MMOL/L (3.5-5.1); SODIUM 141 MMOL/L (136-145)
[2019-04-30 08:00] VITALS: BP 133/75
--- NOTE | 2019-04-30 08:04 | NUR ---
NURSE NOTES: Patient received from Bre. Patient stable with no complaints at this time. No s/sx of distress. RR even and unlabored on RA. Call light within reach. Bed low and locked. Will continue to monitor.
--- NOTE | 2019-04-30 08:37 | NUR ---
HAND OFF: Report given to NOE Roach. Patient in stable condition.
--- NOTE | 2019-04-30 11:12 | NUR ---
RD ASSESSMENT & RECOMMENDATIONS SEE CARE ACTIVITY FOR COMPLETE ASSESSMENT DAILY ESTIMATED NEEDS: Needs based on pancreatitis, obese / 73kg abw 20-25 kcals/kg 6199-0439 total kcals 1-1.5 g protein/kg 110 g total protein 25-30 mL/kg 4310-3165 total fluid mLs NUTRITION DIAGNOSIS: Altered nutrition related lab values R/T pancreatitis as evidenced by elev lipase (1642->578), Uglu on adm 2+, w/ elev lipid panel. CURRENT DIET: CLD PO DIET RECOMMENDATIONS: CARDIAC/ CCHO LOW diet as able ADDITIONAL RECOMMENDATIONS: * Standing wt as able for accurate CBW * A1C for eval of glycemic control- h/o DM * Monitor PO intake and tolerance * Consider lipid lowering agents . .
[2019-04-30 12:00] VITALS: BP 135/72
--- NOTE | 2019-04-30 12:50 | NUR ---
*-* INSURANCE *-* ALL CLINICALS HAVE BEEN FAXED TO"[facility] to provide the following Admission Authorization Number: [id number] Nurse Solution Director will be: Rajeev Bergman' Telephone number: [phone] ext [phone] Rajeev's
--- NOTE | 2019-04-30 13:20 | NUR ---
CASE MANAGEMENT:REVIEW 04/30/19 SI: ACUTE PANCREATITIS. OVARIAN CYST 97.7 53 20 135/72 98% ON RA LIPASE+578 IS: IVF@100/HR NORVASC PO QD IV DILAUDID Q4HRS PRN HEPARIN SQ Q8HRS CLONIDINE PATCH QWEEK : TELEMETRY STATUS DCP: PATIENT IS FROM HOME
[2019-04-30 16:00] VITALS: BP 144/73
[2019-04-30] MEDS: Pantoprazole Inj IVP SCH (16:11)
--- NOTE | 2019-04-30 19:20 | NUR ---
HAND-OFF: Report given to Shahla Acevedo RN. Patient stable.
[2019-04-30 19:57] VITALS: BP 141/82
--- NOTE | 2019-04-30 20:30 | Progress Note ---
DATE: 04/30/2019 INTERNAL MEDICINE PROGRESS NOTE SUBJECTIVE: Slightly better today. Less nausea. No vomiting. Started clear liquids. Still has some abdominal cramping and pain, worse after the liquid intake. Lipase has decreased to 578. OBJECTIVE: VITALS SIGNS: Stable. LUNGS: Clear. CARDIAC: Regular rhythm and rate. Normal S1, S2. ABDOMEN: Distended, but soft. Slightly tender in the upper quadrants. EXTREMITIES: No edema. DIAGNOSTIC DATA: Echocardiogram revealed no pulmonary hypertension. Mild LVH with normal ejection fraction. IMPRESSION: 1. Acute pancreatitis. 2. Mild hypertriglyceridemia. 3. Elevated CEA level. 4. Normalized chemistry and hepatic function panel. 5. Ovarian cyst, benign-appearing. 6. Hydrocodone dependence. 7. Marijuana use. PLAN: 1. Clear liquids. 2. Pain control. 3. Hydration. 4. Antihypertensive management with titration of medications. 5. Plan for additional GI malignancy workup to follow once acute pancreatitis has stabilized. Mark Hoffman M.D. DR: KAILASH JOB#: [id number] CC:
--- NOTE | 2019-04-30 22:36 | General Progress Note ---
Assessment/Plan Assessment/Plan: Assessment - acute pancreatitis - improved - abd pain - improved - Elevated CEA, smoker Recommendations - advance to low fat diet - follow labs and exam - EGD/colon, possibly next week Subjective Allergies: Coded Allergies: No Known Allergies (Unverified , 01/29/14) Subjective Feels better less pain labs noted elevated CEA d/w PMD patient does smoke intermittently Objective Last 24 Hour Vital Signs Date Time Temp Pulse Resp B/P (MAP) Pulse Ox O2 Delivery O2 Flow Rate FiO2 04/30/19 19:57 97.7 78 18 141/82 (101) 98 04/30/19 16:00 99.2 51 18 144/73 (96) 100 04/30/19 12:00 97.7 53 20 135/72 (93) 98 04/30/19 09:35 62 133/75 04/30/19 09:00 Room Air 04/30/19 08:00 97.3 62 20 133/75 (94) 97 04/30/19 05:26 156/73 04/30/19 04:00 97.9 64 18 156/84 (108) 98 04/30/19 00:00 97.7 59 17 146/73 (97) 99 04/29/19 22:59 163/84 Intake and Output 04/29/19 04/30/19 19:00 07:00 Intake Total 700 ml 1000 ml Balance 700 ml 1000 ml Intake Oral 600 ml IV Total 100 ml 1000 ml Laboratory Tests 04/30/19 05:10: White Blood Count 6.8, Red Blood Count 4.65, Hemoglobin 14.4, Hematocrit 41.6, Mean Corpuscular Volume 90, Mean Corpuscular Hemoglobin 30.9, Mean Corpuscular Hemoglobin Concent 34.6, Red Cell Distribution Width 10.7L, Platelet Count 271, Mean Platelet Volume 5.4L, Neutrophils (%) (Auto) 53.7, Lymphocytes (%) (Auto) 37.1, Monocytes (%) (Auto) 7.2, Eosinophils (%) (Auto) 1.3, Basophils (%) (Auto ) 0.7, Sodium Level 141, Potassium Level 3.7, Chloride Level 104, Carbon Dioxide Level 24, Anion Gap 13, Blood Urea Nitrogen 9, Creatinine 0.7, Estimat Glomerular Filtration Rate > 60, Glucose Level 93, Calcium Level 8.9, Total Bilirubin 0.3, Direct Bilirubin < 0.1, Aspartate Amino Transf (AST/SGOT) 24, Alanine Aminotransferase (ALT/SGPT) 28, Alkaline Phosphatase 48, Total Protein 7.4, Albumin 3.4, Lipase 578H Height (Feet): 5 Height (Inches): 9.00 Weight (Pounds): 208 Objective WDWN NCAT supple CTA RRR abd soft, (+) less Epigastric TTP non edema Radha Rondon MD Apr 30, 2019 22:36
[2019-04-30] MEDS ORDERED: Sorbitol Solution UD 30ml ORAL ONE ×2 (22:45→23:45)
--- NOTE | 2019-04-30 23:25 | NUR ---
NURSE NOTE: Pt is A/Ox4 with stable VS. Orders reviewed and physical assessment completed. Pt allowed 2100 BS to be assessed but expressed that she does not have DM2 and therefore does not want to receive insulin. Call connolly is within reach, will continue to monitor.
[2019-05-01 00:35] VITALS: BP 134/87
[2019-05-01 04:30] VITALS: BP 131/70
[2019-05-01] MEDS: Heparin 5000 units/ml inj SUBQ SCH ×3 (06:18→21:02)
[2019-05-01] MEDS: NovoLOG Insulin Flexpen SUBQ SCH ×4 (06:20→21:00)
--- NOTE | 2019-05-01 07:30 | NUR ---
NURSE NOTES: Received report from NOE Gale. Patient A&Ox4. On room air, no signs of distress or labored breathing. IV intact, patent, and infusing IV fluids. Patient eating breakfast. Call light within reach. Will continue with plan of care.
[2019-05-01 08:00] VITALS: BP 134/81
[2019-05-01] MEDS: Pantoprazole Inj IVP SCH (09:35)
[2019-05-01 12:00] VITALS: BP_SYST 150; BP_SYST 164; BP_DIAS 81; BP_DIAS 84
[2019-05-01 16:00] VITALS: BP 138/75
--- NOTE | 2019-05-01 16:35 | General Progress Note ---
Assessment/Plan Assessment/Plan: Assessment - acute pancreatitis - improved - abd pain - improved - Elevated CEA, smoker - Heme (+) stools Recommendations - continue low fat diet - follow labs and exam - EGD/colon, Friday Subjective Allergies: Coded Allergies: No Known Allergies (Unverified , 01/29/14) Subjective Feels better pain nearly resolved on solid po diet now labs noted d/w patient re Heme (+) stools agreed to EGD/Colon Objective Last 24 Hour Vital Signs Date Time Temp Pulse Resp B/P (MAP) Pulse Ox O2 Delivery O2 Flow Rate FiO2 05/01/19 13:09 164/84 05/01/19 12:00 97.9 67 18 164/84 (110) 96 05/01/19 09:35 67 134/81 05/01/19 08:00 97.7 67 17 134/81 (98) 98 05/01/19 04:34 Room Air 05/01/19 04:30 97.4 59 18 131/70 (90) 98 05/01/19 00:35 97.7 74 18 134/87 (103) 97 04/30/19 19:57 97.7 78 18 141/82 (101) 98 Intake and Output 04/30/19 05/01/19 18:59 06:59 Intake Total 600 ml 100 ml Balance 600 ml 100 ml IV Total 600 ml 100 ml # Voids 4 # Bowel Movements 2 Laboratory Tests 05/01/19 02:10: Stool Occult Blood Positive Height (Feet): 5 Height (Inches): 9.00 Weight (Pounds): 208 Objective WDWN NCAT supple CTA RRR abd soft, (+) less Epigastric TTP no edema Radha Rondon MD May 01, 2019 16:35
--- NOTE | 2019-05-01 16:40 | NUR ---
NURSE NOTES: Patient refused insulin for BS of 135. RN explained risks and benefits and patient states she doesn't have DM and doesn't want to take insulin.
[2019-05-01] MEDS ORDERED: Sorbitol Solution UD 30ml ORAL SCH (16:45)
--- NOTE | 2019-05-01 19:20 | NUR ---
HAND-OFF: Report given to NOE Gale.
[2019-05-01 20:00] VITALS: BP 131/75
--- NOTE | 2019-05-01 21:27 | NUR ---
NURSE NOTE: Pt is A/Ox4 with stable VS. Orders reviewed and physical assessment completed. Call connolly is within reach, will continue to monitor.
[2019-05-02] VITALS (7 sets, daily range): BP systolic 123–160; BP diastolic 70–89
--- NOTE | 2019-05-02 01:45 | Progress Note ---
DATE: 05/01/2019 INTERNAL MEDICINE PROGRESS NOTE SUBJECTIVE: The patient's abdominal pain has improved. She is tolerating a diet. She has not been vomiting. She has some nausea. OBJECTIVE: VITAL SIGNS: T-max 99.2, blood pressure 141/82, heart rate 78, and respiratory rate 18. LUNGS: Clear. CARDIAC: Regular. Normal S1 and S2 with a fourth heart sound. ABDOMEN: Soft. Slightly distended. Midepigastric tenderness. No guarding or rebound. EXTREMITIES: No edema. IMPRESSION: 1. Acute pancreatitis, improving. 2. Abdominal pain, improving. 3. Elevated CEA with heme-positive stool, requires further diagnostic workup. PLAN: 1. Monitor clinical parameters. 2. Pancreatic enzymes. 3. Advance diet. 4. Panendoscopy . Mark Hoffman M.D. DR: LEYDA JOB#: [id number] CC:
[2019-05-02] MEDS: Heparin 5000 units/ml inj SUBQ SCH ×3 (05:35→20:49)
[2019-05-02] MEDS: NovoLOG Insulin Flexpen SUBQ SCH ×2 (06:30→11:30)
[2019-05-02] MEDS ORDERED: Nulytely 4L ORAL ONE (07:00)
--- NOTE | 2019-05-02 08:00 | NUR ---
NURSE NOTES: Received report from Shahla LIU. Patient is awake and oriented, no acute distress noted, reports she's feeling "so, so" this morning. IV intact. Nulytely started per order, BSC placed at bedside, patient educated to wear her non-slip socks when getting OOB for safety. Updated on plan of care for the day. Side rails upx2, bed and locked, call light within reach.
[2019-05-02] MEDS: Pantoprazole Inj IVP SCH (08:29)
--- NOTE | 2019-05-02 11:35 | NUR ---
NURSE NOTES: Patient refuses blood sugar check and insulin. Patient stated "I'm not diabetic, I don't need to be poked", will follow up with MD.
--- NOTE | 2019-05-02 16:40 | General Progress Note ---
Assessment/Plan Assessment/Plan: Assessment - acute pancreatitis - improved - abd pain - improved - Elevated CEA, smoker - Heme (+) stools Recommendations - clear liquid diet - follow labs and exam - EGD/colon, Friday - also evaluate for non-GI sources of CEA Subjective Allergies: Coded Allergies: No Known Allergies (Unverified , 01/29/14) Subjective (++) BM with prep on clears for EGD/Colon in am Objective Last 24 Hour Vital Signs Date Time Temp Pulse Resp B/P (MAP) Pulse Ox O2 Delivery O2 Flow Rate FiO2 05/02/19 15:49 98.4 05/02/19 13:30 58 154/78 (103) 05/02/19 12:28 159/79 05/02/19 12:00 98.4 59 18 159/79 (105) 97 05/02/19 09:00 Room Air 05/02/19 08:29 62 160/81 05/02/19 08:00 98.2 62 17 160/81 (107) 99 05/02/19 04:04 98.0 57 18 123/70 (87) 97 05/02/19 00:15 97.9 60 18 131/73 (92) 95 05/01/19 21:00 Room Air 05/01/19 20:00 97.9 61 18 131/75 (93) 98 Intake and Output 05/01/19 05/02/19 19:00 07:00 # Voids 8 Height (Feet): 5 Height (Inches): 9.00 Weight (Pounds): 208 Objective WDWN NCAT supple CTA RRR abd soft, (+) less Epigastric TTP no edema Radha Rondon MD May 02, 2019 16:40
--- NOTE | 2019-05-02 19:36 | NUR ---
HAND-OFF: Report given to Jose LIU.
[2019-05-02] MEDS ORDERED: Sorbitol Solution UD 30ml ORAL SCH (20:00)
--- NOTE | 2019-05-02 20:00 | NUR ---
NURSE NOTES: Patient in bed awake and oriented. VSS. No SOB noted. 8/10 Lower abdominal pain. PRN pain medication given. Tolerated well. No N&V. Patient on bowel prep. Bowels are light brownish. Liquid in form. NPO midnight. No signs of distress noted. Needs attended. Call light within reach. In stable condition.
--- NOTE | 2019-05-02 22:00 | Progress Note ---
DATE: 05/02/2019 INTERNAL MEDICINE PROGRESS NOTE SUBJECTIVE: Still with mild abdominal pain, but overall improved. No vomiting. Tolerating diet. Blood pressure parameters are elevated. Glucose control is excellent. OBJECTIVE: LUNGS: Clear. CARDIAC: Regular. No new murmur. ABDOMEN: Slightly distended, but soft. Minimally tender in the midepigastric region. EXTREMITIES: Without edema. IMPRESSION: 1. Acute pancreatitis. 2. Elevated CEA. 3. Hypertensive heart disease. 4. Type 2 diabetes, remained stable. PLAN: 1. I will follow up laboratory studies. 2. Discontinue Accu-Chek and insulin coverage. 3. Advance antihypertensives. 4. The patient is stable for panendoscopy tomorrow to complete diagnostic workup. Mark Hoffman M.D. DR: Jessica JOB#: [id number] CC:
[2019-05-03] VITALS (10 sets, daily range): BP systolic 88–142; BP diastolic 51–85
[2019-05-03] MEDS: Heparin 5000 units/ml inj SUBQ SCH ×2 (04:06→14:00)
[2019-05-03 05:55] LABS: BASOPHILS % (AUTO) 1.3 % (0.0-2.0); EOSINOPHILS % (AUTO) 2.3 % (0.0-3.0); HEMATOCRIT 42.4 % (37.0-47.0); HEMOGLOBIN 14.6 G/DL (12.0-16.0); LYMPHOCYTES % (AUTO) 49.2 % (20.0-45.0); MEAN CORPUSCULAR VOLUME 90 FL (80-99); MONOCYTES % (AUTO) 6.4 % (1.0-10.0); NEUTROPHILS % (AUTO) 40.7 % (45.0-75.0); PLATELET COUNT 256 K/UL (150-450); RED BLOOD COUNT 4.71 M/UL (4.20-5.40); RED CELL DISTRIBUTION WIDTH 11.1 % (11.6-14.8); WHITE BLOOD COUNT 6.6 K/UL (4.8-10.8)
[2019-05-03 06:14] LABS: ALANINE AMINOTRANSFERASE 51 U/L (12-78); ALBUMIN 3.5 G/DL (3.4-5.0); ALBUMIN/GLOBULIN RATIO 0.9 (1.0-2.7); ALKALINE PHOSPHATASE 51 U/L (46-116); ANION GAP 9 mmol/L (5-15); ASPARTATE AMINO TRANSFERASE 29 U/L (15-37); BILIRUBIN,TOTAL 0.3 MG/DL (0.2-1.0); BLOOD UREA NITROGEN 4 mg/dL (7-18); CALCIUM 9.6 MG/DL (8.5-10.1); CARBON DIOXIDE 27 MMOL/L (21-32); CHLORIDE 107 MMOL/L (98-107); POTASSIUM 3.9 MMOL/L (3.5-5.1); SODIUM 143 MMOL/L (136-145)
--- NOTE | 2019-05-03 06:55 | Anethesia Preoperative Eval ---
Anesthesia Pre-op PMH/ROS General Date of Evaluation: May 03, 2019 Time of Evaluation: 06:54 Anesthesiologist: adrienne ASA Score: ASA 3 Mallampati Score Class I : Soft palate, uvula, fauces, pillars visible Class II: Soft palate, uvula, fauces visible Class III: Soft palate, base of uvula visible Class IV: Only hard plate visible Mallampati Classification: Class II Surgeon: adrienne Diagnosis: fecal occult blood positive Surgical Procedure: egd/colonoscopy Anesthesia History: none Social History: current smoker, drug use Family History: no anesthesia problems Allergies: Coded Allergies: No Known Allergies (Unverified , 01/29/14) Medications: see eMAR Patient NPO?: Yes Past Medical History Cardiovascular: Reports: HTN, other - hypercholesterolemia Neurologic/Psychiatric: Reports: depression/anxiety, other - epilepsy Endocrine: Reports: DM Anesthesia Pre-op Phys. Exam Physician Exam Last Vital Signs Date Time Temp Pulse Resp B/P (MAP) Pulse Ox O2 Delivery O2 Flow Rate FiO2 05/03/19 04:00 98.2 82 18 127/85 (99) 98 05/02/19 21:00 Room Air Constitutional: NAD Neurologic: CN 2-12 intact Cardiovascular: RRR Respiratory: CTA Gastrointestinal: S/NT/ND Airway Exam Mallampati Score: Class II MO: full Neck: flexible TMD: 2fb ROM: full Anesthesia Pre-op A/P Labs Hematology Test 05/03/19 05:25 White Blood Count 6.6 K/UL (4.8-10.8) Red Blood Count 4.71 M/UL (4.20-5.40) Hemoglobin 14.6 G/DL (12.0-16.0) Hematocrit 42.4 % (37.0-47.0) Mean Corpuscular Volume 90 FL (80-99) Mean Corpuscular Hemoglobin 31.1 PG (27.0-31.0) H Mean Corpuscular Hemoglobin Concent 34.5 G/DL (32.0-36.0) Red Cell Distribution Width 11.1 % (11.6-14.8) L Platelet Count 256 K/UL (150-450) Mean Platelet Volume 5.7 FL (6.5-10.1) L Neutrophils (%) (Auto) 40.7 % (45.0-75.0) L Lymphocytes (%) (Auto) 49.2 % (20.0-45.0) H Monocytes (%) (Auto) 6.4 % (1.0-10.0) Eosinophils (%) (Auto) 2.3 % (0.0-3.0) Basophils (%) (Auto) 1.3 % (0.0-2.0) Chemistry Test 05/03/19 05:25 Sodium Level 143 MMOL/L (136-145) Potassium Level 3.9 MMOL/L (3.5-5.1) Chloride Level 107 MMOL/L (98-107) Carbon Dioxide Level 27 MMOL/L (21-32) Anion Gap 9 mmol/L (5-15) Blood Urea Nitrogen 4 mg/dL (7-18) L Creatinine 1.0 MG/DL (0.55-1.30) Estimat Glomerular Filtration Rate > 60 mL/min (>60) Glucose Level 127 MG/DL (74-106) H Calcium Level 9.6 MG/DL (8.5-10.1) Total Bilirubin 0.3 MG/DL (0.2-1.0) Aspartate Amino Transf (AST/SGOT) 29 U/L (15-37) Alanine Aminotransferase (ALT/SGPT) 51 U/L (12-78) Alkaline Phosphatase 51 U/L (46-116) Total Protein 7.4 G/DL (6.4-8.2) Albumin 3.5 G/DL (3.4-5.0) Globulin 3.9 g/dL Albumin/Globulin Ratio 0.9 (1.0-2.7) L Lipase 390 U/L (73-393) Risk Assessment & Plan Assessment: asa3 Plan: mac Status Change Before Surgery: No Pre-Antibiotics Drug: Nilsa Ambrosio MD May 03, 2019 06:55
[2019-05-03] MEDS ORDERED: DiphenhydrAMINE 50mg/ml Inj IVP PRN (07:00)
[2019-05-03] MEDS ORDERED: Phenylephrine 10mg/ml Vial ONE (07:00)
[2019-05-03] MEDS ORDERED: Lidocaine 1% MPF 10mg/ml 5ml ONE (07:00)
[2019-05-03] MEDS ORDERED: LR 1000ml ONE (07:00)
[2019-05-03] MEDS ORDERED: Atropine Sulfate 0.4mg/ml inj ONE (07:00)
[2019-05-03] MEDS ORDERED: fentaNYL 100 mcg/2 mL IV PRN (07:00)
[2019-05-03] MEDS ORDERED: Propofol 200mg/20ml IV ONE (07:00)
[2019-05-03] MEDS ORDERED: Midazolam 2mg/2ml Inj IVP PRN (07:00)
[2019-05-03] MEDS ORDERED: Atropine Inj 1mg/10ml Syr IV PRN (07:00)
--- NOTE | 2019-05-03 07:17 | General Progress Note ---
Assessment/Plan Assessment/Plan: Assessment - acute pancreatitis - improved - abd pain - improved - Elevated CEA, smoker - Heme (+) stools Recommendations - NPO - follow labs and exam - EGD/colon today - will need f/u MRI of pancreas in 1 mo to r/o mass - also evaluate for non-GI sources of CEA Subjective Allergies: Coded Allergies: No Known Allergies (Unverified , 01/29/14) Subjective (++) BM with prep NPO for EGD/Colon minimal abd pain patient advised needs outpatient MRI to r/o pancreatic CA in 1 mo patient understands no further reminders will be given Objective Last 24 Hour Vital Signs Date Time Temp Pulse Resp B/P (MAP) Pulse Ox O2 Delivery O2 Flow Rate FiO2 05/03/19 04:00 98.2 82 18 127/85 (99) 98 05/02/19 21:00 Room Air 05/02/19 20:00 97.5 85 18 131/89 (103) 99 05/02/19 17:17 75 136/74 05/02/19 17:12 75 05/02/19 16:00 98.2 51 18 136/74 (94) 96 05/02/19 15:49 98.4 05/02/19 13:30 58 154/78 (103) 05/02/19 12:28 159/79 05/02/19 12:00 98.4 59 18 159/79 (105) 97 05/02/19 09:00 Room Air 05/02/19 08:29 62 160/81 05/02/19 08:00 98.2 62 17 160/81 (107) 99 Intake and Output 05/02/19 05/03/19 19:00 07:00 Intake Total 4800 ml 250 ml Balance 4800 ml 250 ml Intake Oral 4600 ml IV Total 200 ml 250 ml # Voids 6 2 # Bowel Movements 5 3 Laboratory Tests 05/03/19 05:25: White Blood Count 6.6, Red Blood Count 4.71, Hemoglobin 14.6, Hematocrit 42.4, Mean Corpuscular Volume 90, Mean Corpuscular Hemoglobin 31.1H, Mean Corpuscular Hemoglobin Concent 34.5, Red Cell Distribution Width 11.1L, Platelet Count 256, Mean Platelet Volume 5.7L, Neutrophils (%) (Auto) 40.7L, Lymphocytes (%) (Auto) 49.2H, Monocytes (%) (Auto) 6.4, Eosinophils (%) (Auto) 2.3, Basophils (%) (Auto ) 1.3, Sodium Level 143, Potassium Level 3.9, Chloride Level 107, Carbon Dioxide Level 27, Anion Gap 9, Blood Urea Nitrogen 4L, Creatinine 1.0, Estimat Glomerular Filtration Rate > 60, Glucose Level 127H, Calcium Level 9.6, Total Bilirubin 0.3, Aspartate Amino Transf (AST/SGOT) 29, Alanine Aminotransferase ( ALT/SGPT) 51, Alkaline Phosphatase 51, Total Protein 7.4, Albumin 3.5, Globulin 3.9, Albumin/Globulin Ratio 0.9L, Lipase 390 Height (Feet): 5 Height (Inches): 5.00 Weight (Pounds): 208 Objective WDWN NCAT supple CTA RRR abd soft, (+) min Epigastric TTP no edema Radha Rondon MD May 03, 2019 07:17
[2019-05-03] MEDS ORDERED: NS 500ML IVPB ONE (07:18)
[2019-05-03] MEDS ORDERED: LR 1000ml IVLG ONE (07:46)
--- NOTE | 2019-05-03 07:50 | NUR ---
NURSE NOTES: Pt out of room at this time, for procedure
--- NOTE | 2019-05-03 08:32 | Endoscopy Procedure Note ---
Endoscopy Procedure Note General Indication for Procedure: Heme (+) Procedures Performed: EGD, colonoscopy Operative Findings/Diagnosis: erosive duodenitis - Bx duo and antrum, mild diverticulosis, multiple dim P Specimen: yes Pt Tolerated Procedure Well: Yes Estimated Blood Loss: none Anesthesia Anesthesiologist: Anthony Garcia Anesthesia: MAC Medications Medication Given: see anesthesia record Inserted Devices Implant(s) used?: No GI Core Measures 50 yrs or older w/o bx or poly: Not Applicable 10yrs. F/U recommended: Not Applicable If not recommended, why?: Radha Rondon MD May 03, 2019 08:32
--- NOTE | 2019-05-03 08:59 | Brief Operative Note ---
Immediate Post Operative Note Operative Note Chief Complaint: Heme (+) Procedure: EGD Colon bx /bx Post-op Diagnosis: erosive duodenitis - Bx duo and antrum, mild diverticulosis, multiple dim Polyps Surgeon: adrienne Anesthesiologist: Anthony Garcia Anesthesia: MAC Specimen: yes Complications: none Condition: stable Fluids: per anesthesia Estimated Blood Loss: none Drains: none Implant(s) used?: No Radha Rondon MD May 03, 2019 08:59
--- NOTE | 2019-05-03 09:14 | Immediate Post-Op Evaluation ---
Immediate Post-Op Evalulation Immediate Post-Op Evalulation Procedure: egd/colonoscopy w/bx Date of Evaluation: May 03, 2019 Time of Evaluation: 08:29 IV Fluids: 0.9ns 500ml, lr 350ml Blood Products: none Estimated Blood Loss: negligible Blood Pressure Systolic: 93 Blood Pressure Diastolic: 56 Pulse Rate: 91 Respiratory Rate: 18 O2 Sat by Pulse Oximetry: 100 Temperature (Fahrenheit): 97.9 Pain Score (1-10): 0 Nausea: No Vomiting: No Complications none Patient Status: awake, reacts, patent Hydration Status: adequate Drug: Nilsa Ambrosio MD May 03, 2019 09:14
--- NOTE | 2019-05-03 09:15 | 48 Hour Post Anesthesia Eval ---
Post Anesthesia Evaluation Procedure: egd/colonoscopy w/bx Date of Evaluation: May 03, 2019 Time of Evaluation: 08:31 Blood Pressure Systolic: 103 0: 55 Pulse Rate: 68 Respiratory Rate: 18 Temperature (Fahrenheit): 97.9 O2 Sat by Pulse Oximetry: 100 Airway: patent Nausea: No Vomiting: No Pain Intensity: 0 Hydration Status: adequate Cardiopulmonary Status: stable Mental Status/LOC: patient returned to baseline Post-Anesthesia Complications: none Follow-up care needed: N/A Nilsa Vo MD May 03, 2019 09:15
[2019-05-03] MEDS: Pantoprazole Inj IVP SCH (09:45)
--- NOTE | 2019-05-03 10:53 | Cardiology Report ---
APPROVED REPORT EXAM: Two-dimensional and M-mode echocardiogram with Doppler and color Doppler. INDICATION Hypertensive heart disease M-Mode DIMENSIONS IVSd1.1 (0.7-1.1cm)Left Atrium (MM)3.5 (1.6-4.0cm) LVDd3.8 (3.5-5.6cm)Aortic Root3.0 (2.0-3.7cm) PWd1.1 (0.7-1.1cm)Aortic Cusp Exc.1.5 (1.5-2.0cm) LVDs2.7 (2.5-4.0cm) PWs1.8 cm Normal left ventricular chamber size, systolic function and wall motion. Left ventricular ejection fraction estimated to be 55-60 %. No evidence of pericardial effusion. All other cardiac chamber sizes are within normal limits. Focal aortic valve sclerosis with adequate cusp excursion. Thickened mitral valve leaflets with normal excursion. Mitral annulus and aortic root calcification. Normal pulmonic valve structure. Normal tricuspid valve structure. IVC at normal size with slight physiologic collapse. A color flow and spectral Doppler study was performed and revealed: No aortic regurgitation. Trace mitral regurgitation. Mitral diastolic velocities suggest reduced left ventricular relaxation c/w mild LV diastolic dysfunction (Grade I ). Trace tricuspid regurgitation. Tricuspid systolic velocities suggests peak right ventricular systolic pressure of 16 mmHg.
--- NOTE | 2019-05-03 11:10 | NUR ---
*-* INSURANCE *-* ALL CLINICALS HAVE BEEN FAXED TO"[facility] to provide the following Admission Authorization Number: [id number] Nurse Senior Interior Designer will be: Rajeev Bergman' Telephone number: [phone] ext [phone] Rajeev's
--- NOTE | 2019-05-03 13:34 | NUR ---
DISCHARGE PLANNED CALLED [facility] [employer] [facility] AND LEFT MESSAGE REGARDING DISCHARGE NEEDS PATIENT NEEDS A F/U APPOINTMENT WITH HER PMD SHE ALSO NEEDS TO HAVE A F/U CT OR MRI OF THE ABDOMEN IN 1 MONTH
--- NOTE | 2019-05-03 13:54 | NUR ---
NURSE NOTES: Message left wit Dr Rondon to inform him that pt has concerns with rectal bleeding. Dr Hoffman has placed , discharge orders in for pt
--- NOTE | 2019-05-03 14:20 | NUR ---
NURSE NOTES: Printing Press Machine Operator entered room , to provide pt with pain medication, per pt she went to the restroom and has had a second episode of rectal bleeding. Printing Press Machine Operator went to bathroom moderate amount of blood in toilet with presence of clots. Charge nurse called to room
--- NOTE | 2019-05-03 16:06 | NUR ---
NURSE NOTES: Pt is currently sleeping call light is in reach.
--- NOTE | 2019-05-03 16:15 | NUR ---
NURSE NOTES: Per Dr Rondon pt to be NPO d/c Heparin change to SCDs Give D5NS@100cc / hour and CBC for AM. Will follow up with Dr Hoffman to inform him of orders. Stated that due to amount of polyps that pt stomach needs to rest.
--- NOTE | 2019-05-03 16:22 | NUR ---
NURSE NOTES: Dr Hoffman phoned no answer at this time
[2019-05-03] MEDS: D5 1/2NS 1,000 ML IV SCH (17:32)
--- NOTE | 2019-05-03 18:00 | Operative Note - Dictated ---
DATE OF OPERATION: 05/03/2019 GASTROENTEROLOGY PROCEDURE PROCEDURE: Upper gastrointestinal endoscopy with biopsy as well as colonoscopy with biopsy. SURGEON: Radha Rondon M.D. ANESTHESIA: Please see the anesthesia notes for details. PRE-ENDOSCOPIC DIAGNOSIS: Heme-positive stools. POST-ENDOSCOPIC DIAGNOSES: 1. Erosive duodenitis, likely heme-positive stools, status post biopsy. 2. Status post random biopsy of the stomach, rule out Helicobacter pylori. 3. Multiple diminutive polyps in the distal colon removed with biopsy forceps as indicated on pathology reports. 4. No malignancy identified. DESCRIPTION OF PROCEDURE: The procedure, its risks, indications, alternatives, and possible complications were explained to the patient and informed consent was obtained. The patient was sedated and a diagnostic upper endoscope was introduced through oropharynx and advanced to the duodenum. Erosive duodenitis was identified and biopsied. Random biopsies with normal gastric antrum were also sent to pathology for review. No jacqueline ulcerations were identified. The endoscope was removed. The rectal exam was done. The colonoscope was introduced in the rectum and advanced to the cecum. The cecum was identified by the appearance of the appendiceal orifice. The colonoscope was then gradually withdrawn and the mucosa examined carefully. Examination of the colonic mucosa revealed rare diverticulosis. There were also multiple diminutive polyps seen in the distal colon in the sigmoid and rectum area. Multiple biopsies were submitted to pathology for review. Retroflexed view of the rectum was unremarkable. No malignancies were identified. The colonoscope was removed. The patient was sent to recovery in good condition. COMPLICATIONS: None. RECOMMENDATIONS: 1. Resume oral diet. 2. Follow up biopsy results. 3. Check and treat Helicobacter pylori if positive. 4. Consider searching other areas such as breasts, lungs, and pancreas for sources of elevated CEA. Radha Rondon M.D. DR: KAROLINA JOB#: [id number] CC:
--- NOTE | 2019-05-03 19:06 | NUR ---
NURSE NOTES: Pt was fearful to go home with active bleeding. Made aware of Dr orders to be NPO, SCDs, D/C heparin, CBC in am " Thank God , I rather be here, than go home and I am bleeding I would not know what top do. Informed that the Dr encouraged stomach to rest , Will continue to be monitored . Bushing Press Operator noted 3 episodes of rectal bleeding, aware , Charge Nurse aware. Blood pressure is lower than usual , but pt is not hypotensive, 113/66 pulse 61
--- NOTE | 2019-05-03 19:42 | NUR ---
HAND-OFF: Report given to Made aware of rectal bleeding x 3 , order to d/c heparin, order change for iv fluids to d51/2 ns at 100cc/hr, CBC , in AM per Dr Moreno, Informed that Dr Hoffman attempted to be reached did not have voicemail activated.Per Dr Moreno possible cause of bleeding polyp removal and previous use of heparin. DVT prophylaxis change to scds, endorsed to oncoming nurse to apply
[2019-05-04] VITALS: BP 139/84
--- NOTE | 2019-05-04 | NUR ---
NURSE NOTES: Patient in stable condition. VSS. No SOB noted. PRN pain medication given. For abdominal pain. Call light within reach. In stable condition.
[2019-05-04] MEDS: D5 1/2NS 1,000 ML IV SCH ×2 (03:00→13:00)
[2019-05-04 04:00] VITALS: BP 140/82
--- NOTE | 2019-05-04 04:00 | Progress Note ---
DATE: 05/03/2019 CARDIOLOGY PROGRESS NOTE SUBJECTIVE: The patient had a panendoscopy today. Mild duodenitis was noted. Several benign polyps were excised. Following the procedure, the patient had some rectal bleeding that has recovered. Abdominal pain has resolved. OBJECTIVE: VITAL SIGNS: Blood pressure 142/81, pulse , and respirations 17. LUNGS: Clear. CARDIAC: Regular. Normal S1 and S2. ABDOMEN: Soft. EXTREMITIES: No edema. IMPRESSION: 1. Resolving pancreatitis. 2. Elevated CEA. 3. Duodenitis. 4. Colon polyps. 5. Rectal bleeding post colonoscopy and colon polyp excision. 6. Abnormal pancreatic imaging, possibly due to pancreatitis, but cannot exclude mass. PLAN: 1. Repeat CBC. 2. Observe for further bleeding. 3. Repeat MRI of the abdomen in approximately one month to reassess pancreas once pancreatitis has resolved. Mark Hoffman M.D. DR: IMANI JOB#: [id number] CC:
[2019-05-04 06:38] LABS: BASOPHILS % (AUTO) 1.1 % (0.0-2.0); HEMATOCRIT 39.4 % (37.0-47.0); HEMOGLOBIN 13.6 G/DL (12.0-16.0); LYMPHOCYTES % (AUTO) 37.8 % (20.0-45.0); MEAN CORPUSCULAR VOLUME 90 FL (80-99); MONOCYTES % (AUTO) 8.1 % (1.0-10.0); PLATELET COUNT 240 K/UL (150-450); RED BLOOD COUNT 4.39 M/UL (4.20-5.40); RED CELL DISTRIBUTION WIDTH 10.9 % (11.6-14.8); WHITE BLOOD COUNT 5.8 K/UL (4.8-10.8)
--- NOTE | 2019-05-04 06:58 | NUR ---
NURSE NOTES: Patient had episodes of BM x2. Bowel movements has blood dark brown in color.
--- NOTE | 2019-05-04 07:45 | NUR ---
NURSE NOTES: Received patient awake alert and oriented, lying comfortably in bed. IV site at left antecubital, 20 gauge, infusing NS @50ml/hour. Bed at lowest level with 3 side rails up. Call light within reach. In no apparent distress at this time. Will continue to monitor.
[2019-05-04 08:00] VITALS: BP 124/61
[2019-05-04] MEDS: Pantoprazole Inj IVP SCH (09:13)
--- NOTE | 2019-05-04 10:57 | NUR ---
RD ASSESSMENT & RECOMMENDATIONS SEE CARE ACTIVITY FOR COMPLETE ASSESSMENT DAILY ESTIMATED NEEDS: Needs based on pancreatitis, obese / 73kg abw 20-25 kcals/kg 8465-6953 total kcals 1-1.5 g protein/kg 110 g total protein 25-30 mL/kg 1873-0746 total fluid mLs NUTRITION DIAGNOSIS: Altered nutrition related lab values R/T pancreatitis as evidenced by elev lipase (1642->wnl), Uglu on adm 2+, w/ elev lipid panel. CURRENT DIET:NPO PO DIET RECOMMENDATIONS: CARDIAC/ CCHO LOW diet as able ADDITIONAL RECOMMENDATIONS: * Standing wt as able for accurate CBW * A1C for eval of glycemic control- h/o DM * Monitor BGs closely, need for hypoglycemics- h/o DM * Consider lipid lowering agents . .
[2019-05-04 12:00] VITALS: BP 135/68
--- NOTE | 2019-05-04 15:31 | NUR ---
CASE MANAGEMENT:REVIEW 05/01/19 SI: ACUTE PANCREATITIS. OVARIAN CYST 97.9 67 18 164/84 96% ON RA NO LABS TODAY IS: IVF@100/HR NORVASC PO QD IV DILAUDID Q4HRS PRN HEPARIN SQ Q8HRS CLONIDINE PATCH QWEEK : TELEMETRY STATUS DCP: PATIENT IS FROM HOME 05/02/19 SI: ACUTE PANCREATITIS. OVARIAN CYST 98.4 59 18 159/79 97% ON RA IS: IVF@100/HR NORVASC PO QD IV DILAUDID Q4HRS PRN HEPARIN SQ Q8HRS CLONIDINE PATCH QWEEK : TELEMETRY STATUS DCP: PATIENT IS FROM HOME 05/03/19 SI: ACUTE PANCREATITIS. OVARIAN CYST 99.1 66 16 123/69 100% ON RA GLUCOSE+127 LIPASE+390 IS: IVF@100/HR NORVASC PO QD IV DILAUDID Q4HRS PRN HEPARIN SQ Q8HRS CLONIDINE PATCH QWEEK : TELEMETRY STATUS DCP: PATIENT IS FROM HOME PLAN: EGD AND COLONOSCOPY SCHEDULED FOR TODAY
--- NOTE | 2019-05-04 15:36 | NUR ---
DISCHARGE PLANNING PATIENT'S PMD IS DR SONAL ALMONTE HE HAS 2 OFFICES. [facility] PATIENT SAID SHE USUALLY GOES TO THE [facility] INSTRUCTED PATIENT TO MAKE F/U APPOINTMENT WITH DR ALMONTE AND ASK HIM TO SCHEDULE A 1 MONTH F/U CT OR MRI OF ABDOMEN
--- NOTE | 2019-05-04 15:48 | NUR ---
*-* INSURANCE *-* ALL CLINICALS HAVE BEEN FAXED TO"[facility] to provide the following Admission Authorization Number: [id number] Nurse Cigarette Book Maker will be: Rajeev Bergman' Telephone number: [phone] ext [phone] Rajeev's
--- NOTE | 2019-05-04 15:51 | NUR ---
NURSE NOTES: Patient discharged. IV and ID band removed. Belongings reconciled. Discharge instructions given, and discussed. Patient verbalized understanding. Patient escorted from facility without incident or injury to private vehicle.
--- NOTE | 2019-05-04 19:41 | General Progress Note ---
Assessment/Plan Assessment/Plan: Assessment - acute pancreatitis - improved - abd pain - improved - Elevated CEA, smoker - Heme (+) stools Recommendations - po ad ruma - follow labs and exam - ok for d/c today - will need f/u MRI of pancreas in 1 mo to r/o mass - also evaluate for non-GI sources of CEA Subjective Allergies: Coded Allergies: No Known Allergies (Unverified , 01/29/14) Subjective rectal bleeding x 1 after colon yesterday no further bleeding since advised to f/u as outpatient both with me and PMD advised needs f/u due to elevated CEA, r/o cancer Objective Last 24 Hour Vital Signs Date Time Temp Pulse Resp B/P (MAP) Pulse Ox O2 Delivery O2 Flow Rate FiO2 05/04/19 15:10 98.5 05/04/19 12:00 98.5 53 18 135/68 (90) 99 05/04/19 09:13 53 124/61 05/04/19 09:00 Room Air 05/04/19 08:00 97.8 53 20 124/61 (82) 98 05/04/19 04:00 98.0 70 19 140/82 (101) 95 05/04/19 00:00 98.2 68 18 139/84 (102) 95 05/03/19 22:23 142/81 05/03/19 21:00 Room Air 05/03/19 20:00 98.3 64 17 142/81 (101) 98 Intake and Output 05/03/19 05/04/19 19:00 07:00 Intake Total 800 ml 900 ml Output Total 0 ml Balance 800 ml 900 ml IV Total 800 ml 900 ml Output Estimated Blood Loss 0 ml # Voids 2 3 # Bowel Movements 2 Laboratory Tests 05/04/19 05:30: White Blood Count 5.8, Red Blood Count 4.39, Hemoglobin 13.6, Hematocrit 39.4, Mean Corpuscular Volume 90, Mean Corpuscular Hemoglobin 31.0, Mean Corpuscular Hemoglobin Concent 34.5, Red Cell Distribution Width 10.9L, Platelet Count 240, Mean Platelet Volume 5.8L, Neutrophils (%) (Auto) 51.0, Lymphocytes (%) (Auto) 37.8, Monocytes (%) (Auto) 8.1, Eosinophils (%) (Auto) 2.0, Basophils (%) (Auto ) 1.1 Height (Feet): 5 Height (Inches): 5.00 Weight (Pounds): 208 Objective WDWN NCAT supple CTA RRR abd soft, (+) min Epigastric TTP no edema Radha Rondon MD May 04, 2019 19:40
--- NOTE | 2019-05-05 09:07 | Discharge Summary ---
Discharge Summary Discharge Summary _ DATE OF ADMISSION: 04/26/2019 DATE OF DISCHARGE: 05/04/2019 DISCHARGED BY: Dr Hoffman REASON FOR ADMISSION: 58 years old female with past medical history of hypertension, diabetes mellitus type 2, prior idiopathic pancreatitis , presented to emergency department with complaint of abdominal pain. Patient was hospitalized on several occasions in the past , but did not have any definite diagnostic work-up. During the last inpatient stay recommendation for MRCP were made. However, patient at that time elected to leave prior to completion of the study. Patient reported that over the past week she had developed gradual abdominal pain . Patient reported persistent vomiting over the last 48 hrs. and was not able to take any of her medications. She noted chest and back pain with vomiting. Patient denied any black tinge of brown emesis. She denied alcohol use. Patient reported prior history of high triglycerides but reportedly currently in 250 range. No recent illnesses. Patient also reported mild nonproductive cough with congestion and some constipation. Upon evaluation in the emergency department patient had mild leukocytosis WBC 11.1, stable hemoglobin and hematocrit. Glucose 201. Troponin negative. Stable LFT. Lipase 835. Amylase 231. Lipid panel revealed elevated triglycerides 190. Total cholesterol 202 , LDL 116. Albumin 4. Calcium 10.3. Patient subsequently admitted to medical surgical floor for further management. CONSULTANTS: GI specialist Dr. Rondon [facility] COURSE: [] Patient admitted to medical surgical floor and made n.p.o. Patient started the IV fluids. Pain management was addressed. Symptomatic treatment with antiemetic provided as needed. DVT prophylaxis provided. Blood sugar was managed with sliding scale of insulin. GI specialist followed. Abdominal x-ray revealed moderate stool. Abdominal MRI revealed enlarged pancreatic head and tail junction region with some surrounding peripancreatic edema , suspicious for acute pancreatitis. No gallstones or evidence of choledocholithiasis. Mildly ectatic pancreatic disease. Mildly dilated common bile duct without downstream obstruction . 5 cm right ovarian cyst. Urine toxicology screen was positive for benzodiazepines, opiates and marijuana. Urinalysis revealed minimal pyuria. LFT and lipase were trending. Lipase initially trended up all the way up to highest being 1642 and then started to trend down ; prior to discharge 319. LFT remained stable. Patient undergone EGD with biopsy and colonoscopy with biopsy on 05/03, which revealed erosive duodenitis, likely the cause of Hemoccult positive stools , status post biopsy, status post random biopsy of the stomach, multiply diminutive polyps in the distal colon , removed with the biopsy . No malignancy was identified. At the time of this dictation biopsy results still pending. Patient slowly started on diet and i and was advanced as tolerated. Antiemetic were on board as needed. Patient was able to tolerate diet. CEA elevated 13; however patient admits to current smoking. Patient declined nicotine patch. Stool for occult blood was positive. Hemoglobin and hematocrit were closely monitored and remained stable. Prior to discharge hemoglobin 13.6 ,hematocrit 39.4. Pain was controlled. Patient clinically stabilized and was ready for discharge home. GI specialist recommended follow-up with MRI of pancreas in 1 month to rule out mass. FINAL DIAGNOSES: Acute pancreatitis Abdominal pain likely due to acute pancreatitis -resolved Status post EGD and colonoscopy Erosive duodenitis, likely the cause of Hemoccult positive stools Rectal bleeding , status post colonoscopy and colon polyp excision Elevated CEA Abnormal pancreatic imaging, possibly due to pancreatitis but cannot exclude mass Current smoker DISCHARGE MEDICATIONS: See Medication Reconciliation list. DISCHARGE INSTRUCTIONS: Patient was discharged home. Patient will need to repeat MRI of the pancreas in approximately 1 month to reassess pancreas once pancreatitis resolved. Follow up with primary care provider in one week. I have been assigned to dictate discharge summary for this account. I was not involved in the patient's management. Zandra Serrano NP May 05, 2019 09:07
--- NOTE | 2019-05-06 14:34 | NUR ---
*-* INSURANCE *-* DISCHARGE SUMMARY FAXED TO: [facility] to provide the following Admission Authorization Number: [id number] Nurse [employer]oc Plans Intelligence Officer Chief will be: Rajeev Bergman' Telephone number: [phone] ext [phone] Rajeev's
== END 2019-05-04 15:50 | disposition home or self-care (01) | DRG 282 ==
LOC: EDBEDREQ 09:48 → EMR 10:30 → 3E 11:52 → EDBEDREQ 12:20
PROC: 0DB68ZX Excision of Stomach, Via Natural or Artificial Opening Endoscopic, Diagnostic (ICD-10-PCS; principal; 2019-05-03 07:22)
PROC: 0DBN8ZZ Excision of Sigmoid Colon, Via Natural or Artificial Opening Endoscopic (ICD-10-PCS; 2019-05-03 07:22)
DX: K85.90 Acute pancreatitis without necrosis or infection, unspecified (principal); N39.0 Urinary tract infection, site not specified; I10 Essential (primary) hypertension; I11.9 Hypertensive heart disease without heart failure; E11.9 Type 2 diabetes mellitus without complications; K29.81 Duodenitis with bleeding; R97.0 Elevated carcinoembryonic antigen [CEA]; F17.200 Nicotine dependence, unspecified, uncomplicated; E78.1 Pure hyperglyceridemia; N83.209 Unspecified ovarian cyst, unspecified side; F11.20 Opioid dependence, uncomplicated
CPT/HCPCS: 36415; 71045; 74018; 74181; 76830; 76856; 80048; 80053; 80061; 80076; 80307; 81003; 82150; 82270; 82378; 82962; 83690; 84443; 84484; 85025; 85610; 85730; 93005; 93306; 94003; 94150; 96361; 96365; 96375; 99285; J1815; J2370; J2405; J2765; J7030

== ENCOUNTER 2020-03-05 08:26 | Inpatient (IN) | payer OTHER ==
[~2020-03-05] VITALS: Ht 172.7 cm; Wt 93.8 kg
[2020-03-05] MEDS ORDERED: Dicyclomine HCl 10mg/5ml oral soln ORAL ONE (08:45)
[2020-03-05] MEDS ORDERED: Lidocaine 2% Visc 15ml soln ORAL ONE (08:45)
[2020-03-05] MEDS ORDERED: Mylanta II UD 30ml ORAL ONE (08:45)
[2020-03-05] MEDS ORDERED: Morphine Sulfate 4mg/ml Inj (IV USE ONLY) IVP ONE ×2 (09:00→10:15)
[2020-03-05 09:55] VITALS: BP 155/96
--- NOTE | 2020-03-05 09:58 | Emergency Room Report ---
History of Present Illness General Chief Complaint: Abdominal Pain Source: Patient Present Illness HPI 59-year-old female with history of recurrent idiopathic pancreatitis here with severe epigastric abdominal pain. The patient says that this feels like her usual pancreatitis flares. Said that she changed her diet completely so as to stave off pancreatitis but says that she keeps getting this abdominal pain. Says that she has not been admitted to the hospital in over a year. No fevers, chills, chest pain, shortness of breath, back pain, other abdominal pain, diarrhea, dysuria. Patient is nauseous and actively vomiting in the emergency department. Pain is located in the epigastrium, sharp in nature, does not otherwise radiate Allergies: Coded Allergies: No Known Allergies (Unverified , 01/29/14) COVID-19 Screening Contact w/high risk pt: No Experienced COVID-19 symptoms?: No COVID-19 Testing performed ORTHOPEDIC PHYSICAL THERAPIST: No Patient History Last Menstrual Period: na Nursing Documentation-PMH Past Medical History: No History, Except For Hx Hypertension: Yes Hx Diabetes: Yes Hx Cancer: No Hx Gastrointestinal Problems: No Hx Neurological Problems: No Review of Systems All Other Systems: negative except mentioned in HPI Physical Exam Vital Signs Date Time Temp Pulse Resp B/P (MAP) Pulse Ox O2 Delivery O2 Flow Rate FiO2 03/05/20 08:32 97.9 125 17 158/100 (119) 97 Room Air Sp02 EP Interpretation: reviewed, normal General Appearance: alert, non-toxic, other - Appears uncomfortable and in moderate distress Head: normocephalic, atraumatic Eyes: bilateral eye normal inspection, bilateral eye PERRL ENT: hearing grossly normal, normal pharynx, no angioedema, normal voice Neck: full range of motion, supple/symm/no masses Respiratory: chest non-tender, lungs clear, normal breath sounds, speaking full sentences Cardiovascular #1: regular rate, rhythm, no edema Cardiovascular #2: 2+ carotid (R), 2+ carotid (L), 2+ radial (R), 2+ radial (L) , 2+ dorsalis pedis (R), 2+ dorsalis pedis (L) Gastrointestinal: normal bowel sounds, soft, non-distended, no guarding, no rebound, other - Epigastric tenderness on palpation. Nondistended, no rebound or guarding. Negative Rovsing sign, negative Shen sign Rectal: deferred Genitourinary: normal inspection, no CVA tenderness Musculoskeletal: back normal, normal range of motion, calf tenderness, gait/ station normal, non-tender Neurologic: alert, motor strength/tone normal, oriented x3, sensory intact, responsive, speech normal Psychiatric: judgement/insight normal, memory normal, mood/affect normal, no suicidal/homicidal ideation Reflexes: 3+ bicep (R), 3+ bicep (L), 3+ tricep (R), 3+ tricep (L), 3+ knee (R) , 3+ knee (L) Lymphatic: no adenopathy Medical Decision Making Diagnostic Impression: Primary Impression: Abdominal pain Additional Impressions: Pancreatitis Acute abdominal pain Acute pancreatitis Urinary tract infection ER Course Laboratory Tests Test 03/05/20 09:20 03/05/20 10:00 White Blood Count 9.2 K/UL (4.8-10.8) Red Blood Count 4.96 M/UL (4.20-5.40) Hemoglobin 15.7 G/DL (12.0-16.0) Hematocrit 46.3 % (37.0-47.0) Mean Corpuscular Volume 93 FL (80-99) Mean Corpuscular Hemoglobin 31.7 PG (27.0-31.0) H Mean Corpuscular Hemoglobin Concent 33.9 G/DL (32.0-36.0) Red Cell Distribution Width 11.6 % (11.6-14.8) Platelet Count 295 K/UL (150-450) Mean Platelet Volume 6.3 FL (6.5-10.1) L Neutrophils (%) (Auto) 63.9 % (45.0-75.0) Lymphocytes (%) (Auto) 29.9 % (20.0-45.0) Monocytes (%) (Auto) 4.2 % (1.0-10.0) Eosinophils (%) (Auto) 1.0 % (0.0-3.0) Basophils (%) (Auto) 1.0 % (0.0-2.0) Sodium Level 139 MMOL/L (136-145) Potassium Level 3.5 MMOL/L (3.5-5.1) Chloride Level 99 MMOL/L (98-107) Carbon Dioxide Level 27 MMOL/L (21-32) Anion Gap 13 mmol/L (5-15) Blood Urea Nitrogen 11 mg/dL (7-18) Creatinine 1.0 MG/DL (0.55-1.30) Estimated Glomerular Filtration Rate > 60 mL/min (>60) Glucose Level 180 MG/DL (74-106) H Calcium Level 9.7 MG/DL (8.5-10.1) Total Bilirubin 0.4 MG/DL (0.2-1.0) Aspartate Amino Transferase (AST) 18 U/L (15-37) Alanine Aminotransferase (ALT) 28 U/L (12-78) Alkaline Phosphatase 56 U/L (46-116) Troponin I 0.000 ng/mL (0.000-0.056) Total Protein 8.8 G/DL (6.4-8.2) H Albumin 4.3 G/DL (3.4-5.0) Globulin 4.5 g/dL Albumin/Globulin Ratio 1.0 (1.0-2.7) Lipase 624 U/L (73-393) H Serum Alcohol < 3 mg/dL Urine Color Pale yellow Urine Appearance Clear Urine pH 7 (4.5-8.0) Urine Specific [place] 1.010 (1.005-1.035) Urine Protein 3+ (NEGATIVE) H Urine Glucose (UA) Negative (NEGATIVE) Urine Ketones 1+ (NEGATIVE) H Urine Blood 4+ (NEGATIVE) H Urine Nitrite Negative (NEGATIVE) Urine Bilirubin Negative (NEGATIVE) Urine Urobilinogen Normal MG/DL (0.0-1.0) Urine Leukocyte Esterase 2+ (NEGATIVE) H Urine RBC 5-10 /HPF (0 - 2) H Urine WBC 2-4 /HPF (0 - 2) Urine Squamous Epithelial Cells Few /LPF (NONE/OCC) Urine Bacteria Few /HPF (NONE) 59-year-old female history of recurrent idiopathic keratitis here with abdominal pain. Patient elevated lipase and CT scanning showed evidence of pancreatitis. Patient was given multiple dose of IV pain medication and antiemetics. She felt slightly better but required more dose of pain medication and she did not feel comfortable going home. Patient will be admitted to [facility]. CT abdomen pelvis however did reveal a slightly dilated CBD and an enlarged gallbladder. Right upper quadrant ultrasound currently pending to rule out gallstone pancreatitis. Patient signed out to oncoming physician. Last Vital Signs Date Time Temp Pulse Resp B/P (MAP) Pulse Ox O2 Delivery O2 Flow Rate FiO2 03/05/20 09:35 97.9 03/05/20 08:32 125 17 158/100 (119) 97 Room Air Referrals: NON PHYSICIAN (PCP) Fabricio Germain M.D. Mar 05, 2020 09:58
[2020-03-05 09:59] LABS: HEMATOCRIT 46.3 % (37.0-47.0); HEMOGLOBIN 15.7 G/DL (12.0-16.0); LYMPHOCYTES % (AUTO) 29.9 % (20.0-45.0); MEAN CORPUSCULAR VOLUME 93 FL (80-99); MONOCYTES % (AUTO) 4.2 % (1.0-10.0); NEUTROPHILS % (AUTO) 63.9 % (45.0-75.0); PLATELET COUNT 295 K/UL (150-450); RED BLOOD COUNT 4.96 M/UL (4.20-5.40); RED CELL DISTRIBUTION WIDTH 11.6 % (11.6-14.8); WHITE BLOOD COUNT 9.2 K/UL (4.8-10.8)
[2020-03-05 10:00] LABS: ANION GAP 13 mmol/L (5-15); BLOOD UREA NITROGEN 11 mg/dL (7-18); CALCIUM 9.7 MG/DL (8.5-10.1); CARBON DIOXIDE 27 MMOL/L (21-32); CHLORIDE 99 MMOL/L (98-107); POTASSIUM 3.5 MMOL/L (3.5-5.1); SODIUM 139 MMOL/L (136-145)
[2020-03-05] MEDS ORDERED: Omnipaque-300 100ml vial INJ PRN (10:00)
[2020-03-05 10:10] LABS: ALANINE AMINOTRANSFERASE 28 U/L (12-78); ALBUMIN 4.3 G/DL (3.4-5.0); ALKALINE PHOSPHATASE 56 U/L (46-116); ASPARTATE AMINO TRANSFERASE 18 U/L (15-37); BILIRUBIN,TOTAL 0.4 MG/DL (0.2-1.0)
[2020-03-05 10:15] LABS: APPEARANCE,URINE CLEAR; BILIRUBIN, URINE NEGATIVE (NEGATIVE); COLOR,URINE PALE YELLOW; GLUCOSE, URINE (UA) NEGATIVE (NEGATIVE); KETONES,URINE 1+ (NEGATIVE); LEUKOCYTE ESTERASE ,URINE 2+ (NEGATIVE); NITRITE,URINE NEGATIVE (NEGATIVE); PH,URINE 7 (4.5-8.0); PROTEIN,URINE 3+ (NEGATIVE); UROBILINOGEN,URINE NORMAL MG/DL (0.0-1.0)
[2020-03-05] MEDS ORDERED: cefTRIAXone 1 GM in NS 55 ML IVPB ONE (12:15)
--- NOTE | 2020-03-05 12:23 | Diagnostic Imaging Report ---
EXAM: CT Abdomen and Pelvis With Intravenous Contrast CLINICAL HISTORY: ABD PAIN TECHNIQUE: Axial computed tomography images of the abdomen and pelvis with intravenous contrast. CTDI is 12.5 mGy and DLP is 635.2 mGy-cm. One or more of the following dose reduction techniques were used: automated exposure control, adjustment of the mA and/or kV according to patient size, use of iterative reconstruction technique. COMPARISON: CT abdomen and pelvis 08/20/18, MRI abdomen 04/27/19 FINDINGS: Lung bases: Unremarkable. No mass. No consolidation. ABDOMEN: Liver: Unremarkable. No mass. Gallbladder and bile ducts: Distended gallbladder. Slightly prominent CBD. No calcified stones. Pancreas: Mild stranding around the pancreas. Slightly prominent pancreatic duct at 5 mm. No pseudocyst or abscess. Spleen: Unremarkable. No splenomegaly. Adrenals: Unremarkable. No mass. Kidneys and ureters: 2 mm nonobstructive left and 3 mm nonobstructive right renal stones. 1.4 cm low-density lesion right kidney consistent with cyst on prior MRI. No obstructive uropathy. Stomach and bowel: Moderately distended ascending and transverse colon. No bowel obstruction. No mucosal thickening. PELVIS: Appendix: Normal appendix. Bladder: Unremarkable. No mass. Reproductive: 5 cm cystic right ovarian/adnexal mass. ABDOMEN and PELVIS: Intraperitoneal space: Unremarkable. No free air. No significant fluid collection. Bones/joints: Degenerative changes of the spine. Grade 1 anterolisthesis of L4 on L5. No acute fracture. No dislocation. Soft tissues: Unremarkable. Vasculature: Unremarkable. No abdominal aortic aneurysm. Lymph nodes: Small to borderline retroperitoneal lymph nodes. IMPRESSION: 1. Mild stranding around the pancreas. Slightly prominent pancreatic duct at 5 mm. Findings consistent with acute pancreatitis. 2. Distended gallbladder. Slightly prominent CBD. 3. Moderately distended ascending and transverse colon. No bowel obstruction. 4. 5 cm cystic right ovarian/adnexal mass. Previously measuring 4.5 cm on MRI. 5. 2 mm nonobstructive left and 3 mm nonobstructive right renal stones.
[2020-03-05] MEDS ORDERED: HYDROmorphone 1mg/ml Carpuject IVP ONE (12:30)
[2020-03-05 13:28] VITALS: BP 144/90
[2020-03-05] MEDS ORDERED: NORCO 5-325 TA1 EAC1 ORAL (13:37)
[2020-03-05] MEDS ORDERED: Acetaminophen 500mg (ES) tab ORAL PRN (15:30)
[2020-03-05] MEDS ORDERED: Morphine Sulfate 2mg/ml Inj(IV/IM USE ONLY) IVP PRN (15:30)
[2020-03-05] MEDS ORDERED: HYDROcodone/Acetamin 10/325 tab ORAL PRN ×2 (15:30→18:45)
[2020-03-05] MEDS: D5NS 1,000 ML IV SCH (15:57)
[2020-03-05 16:00] VITALS: BP 139/100
--- NOTE | 2020-03-05 17:16 | Diagnostic Imaging Report ---
EXAM: US Abdomen Complete CLINICAL HISTORY: ABD PAIN TECHNIQUE: Real-time ultrasound of the abdomen with image documentation. COMPARISON: CT abdomen and pelvis today FINDINGS: Liver: Dense liver may be fatty. Liver measures 16.5 cm. No intrahepatic bile duct dilation. Gallbladder: Distended gallbladder. No cholelithiasis. Gallbladder wall. Normal gallbladder wall 1.6 mm. Common bile duct: CBD normal, 4.1 mm. No stones. No dilation. Pancreas: Heterogeneous pancreas. Prominent pancreatic duct, 6.1 mm. Pancreatic tail not well-seen. Kidneys: Non-shadowing left renal calcification measuring 5 mm. 1.1 cm anechoic right renal cyst. Right kidney measures 9.7 x 4.7 x 6.5 cm. Left kidney measures 11.1 x 5.5 x 5.8 cm. No hydronephrosis. Spleen: Spleen measures 7.4 cm. Aorta: Unremarkable. No aneurysm. Inferior vena cava: Unremarkable. IMPRESSION: 1. Dense liver may be fatty. 2. Distended gallbladder. No cholelithiasis. No acute cholecystitis. 3. Heterogeneous pancreas. Prominent pancreatic duct, 6.1 mm. Pancreatic tail not well-seen. 4. Non-shadowing left renal calcification measuring 5 mm. 5. 1.1 cm anechoic right renal cyst.
[2020-03-05] MEDS: Piperacillin/Tazobactam 3.375 GM in NS 110 ML IVPB SCH (18:07)
[2020-03-05 18:34] VITALS: BP 159/105
[2020-03-05 20:00] VITALS: BP 178/95
[2020-03-05] MEDS: Morphine Sulfate 2mg/ml Inj(IV/IM USE ONLY) IVP PRN (20:17)
[2020-03-06] VITALS (7 sets, daily range): BP systolic 139–165; BP diastolic 90–95
[2020-03-06] MEDS: Morphine Sulfate 2mg/ml Inj(IV/IM USE ONLY) IVP PRN ×5 (00:17→21:29)
[2020-03-06] MEDS: Piperacillin/Tazobactam 3.375 GM in NS 110 ML IVPB SCH ×3 (00:17→16:03)
[2020-03-06] MEDS: D5NS 1,000 ML IV SCH ×3 (01:45→21:45)
[2020-03-06 07:14] LABS: ALANINE AMINOTRANSFERASE 25 U/L (12-78); ALBUMIN 3.9 G/DL (3.4-5.0); ALBUMIN/GLOBULIN RATIO 0.9 (1.0-2.7); ALKALINE PHOSPHATASE 57 U/L (46-116); ANION GAP 9 mmol/L (5-15); ASPARTATE AMINO TRANSFERASE 17 U/L (15-37); BILIRUBIN,TOTAL 0.5 MG/DL (0.2-1.0); BLOOD UREA NITROGEN 9 mg/dL (7-18); CALCIUM 9.4 MG/DL (8.5-10.1); CARBON DIOXIDE 28 MMOL/L (21-32); CHLORIDE 104 MMOL/L (98-107); CREATININE 0.9 MG/DL (0.55-1.30); POTASSIUM 4.3 MMOL/L (3.5-5.1); SODIUM 141 MMOL/L (136-145)
[2020-03-06] MEDS: Lisinopril 20mg tab ORAL SCH (08:04)
--- NOTE | 2020-03-06 09:15 | History and Physical Report ---
DATE OF ADMISSION: 03/05/2020 CHIEF COMPLAINT: Abdominal pain. HISTORY OF PRESENT ILLNESS: The patient is a 59-year-old female. She has a history of hypertensive heart disease, presented with complaints of two days of worsening abdominal pain. She has had intermittent abdominal pain for the last several years. She presented to the emergency room where she was noted to have an elevated lipase of [address] scan of the abdomen showed stranding around the pancreas consistent with pancreatitis. The patient has been started on IV fluids and pain medications, now admitted for further evaluation and care. PAST MEDICAL HISTORY: Significant for hypertension. PAST SURGICAL HISTORY: Includes . CURRENT MEDICATIONS: None. FAMILY HISTORY: Significant for hypertension. SOCIAL HISTORY: The patient smokes three cigarettes a day. Denies any alcohol at all. No drugs. ALLERGIES: She has no known allergies. REVIEW OF SYSTEMS: Unremarkable, except for abdominal pain, nausea and vomiting. PHYSICAL EXAMINATION: VITAL SIGNS: Temperature 98, pulse 100, respirations 19, and blood pressure 144/95. GENERAL: The patient is well developed, in no apparent distress. HEART: Regular. LUNGS: Clear. ABDOMEN: Soft. Diffusely tender without rebound or guarding. EXTREMITIES: Without clubbing, cyanosis, or edema. LABORATORY DATA: Lipase is 624. Potassium 3.5. White count was 9. ASSESSMENT: This is a pleasant female admitted with complaints of acute pancreatitis. PLAN: 1. IV hydration. 2. NPO. 3. IV pain medications, antiemetics. 4. DVT and stress ulcer prophylaxes. 5. Empiric antibiotics. 6. We will trend the patient's lipase level and check an MRCP. David Tomlinson M.D. DR: Kp JOB#: [id number] CC:
[2020-03-07] VITALS: BP_SYST 157; BP_SYST 169; BP_DIAS 102; BP_DIAS 103
[2020-03-07] MEDS: Piperacillin/Tazobactam 3.375 GM in NS 110 ML IVPB SCH ×3 (00:31→16:44)
[2020-03-07 04:00] VITALS: BP 165/107
[2020-03-07] MEDS: Morphine Sulfate 2mg/ml Inj(IV/IM USE ONLY) IVP PRN ×3 (04:05→18:34)
--- NOTE | 2020-03-07 07:06 | General Progress Note ---
Assessment/Plan Problem List: (1) Pancreatitis ICD Codes: K85.9 - Acute pancreatitis, unspecified SNOMED: 99423311 (2) Abdominal pain ICD Codes: R10.9 - Unspecified abdominal pain SNOMED: 94899074 (3) Hypertension ICD Codes: I10 - Hypertension SNOMED: 61733151 Status: stable Status Narrative cont ivf pain rx as needed follow up lipase start clears Subjective ROS Limited/Unobtainable: No Constitutional: Reports: no symptoms HEENT: Reports: no symptoms Cardiovascular: Reports: no symptoms Respiratory: Reports: no symptoms Gastrointestinal/Abdominal: Reports: abdomen distended, abdominal pain Genitourinary: Reports: no symptoms Neurologic/Psychiatric: Reports: no symptoms Endocrine: Reports: no symptoms Hematologic/Lymphatic: Reports: no symptoms Allergies: Coded Allergies: No Known Allergies (Unverified , 01/29/14) All Systems: reviewed and negative except above Subjective still with abd pain. thinks its 50% better. no nausea or vomiting. Objective Last 24 Hour Vital Signs Date Time Temp Pulse Resp B/P (MAP) Pulse Ox O2 Delivery O2 Flow Rate FiO2 03/07/20 04:00 97.9 102 20 165/107 (126) 98 03/07/20 00:17 169/103 03/07/20 00:00 97.9 109 22 169/103 (125) 97 03/06/20 21:00 Room Air 03/06/20 20:00 97.3 94 20 158/95 (116) 98 03/06/20 16:36 97.9 03/06/20 16:00 98.0 88 18 139/92 (108) 100 03/06/20 12:38 97.9 03/06/20 12:00 97.5 94 18 150/94 (112) 100 03/06/20 09:00 Room Air 03/06/20 08:04 147/93 03/06/20 08:00 97.9 94 18 147/93 (111) 100 Intake and Output 03/06/20 03/07/20 19:00 07:00 Intake Total 100 ml 700 ml Balance 100 ml 700 ml IV Total 100 ml 700 ml # Voids 3 2 Height (Feet): 5 Height (Inches): 8.00 Weight (Pounds): 210 General Appearance: WD/WN, no apparent distress, obese Neck: supple Cardiovascular: regular rhythm Respiratory/Chest: lungs clear Abdomen: normal bowel sounds, non tender, soft Edema: no edema noted Leg (L), no edema noted Leg (R) 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
[2020-03-07 08:00] VITALS: BP 166/90
[2020-03-07] MEDS: Lisinopril 20mg tab ORAL SCH (08:05)
[2020-03-07] MEDS: D5NS 1,000 ML IV SCH ×2 (08:05→16:48)
[2020-03-07] MEDS ORDERED: LORazepam Inj 2mg/ml 1ml IV SCH (09:15)
[2020-03-07 12:00] VITALS: BP 150/59
--- NOTE | 2020-03-07 15:35 | Diagnostic Imaging Report ---
Indication: Abdominal pain, prominent, bile ducts and pancreatic ducts on recent CT scan Technique: Coronal and axial single shot fast spin-echo breath-hold, axial T2 FRFSE, 2-D thick slab MRCP, AXIAL 2-D FIESTA fat saturated, axial 3-D dual echo breath-hold, water weighted axial LAVA FLEX, revealed 3-D MRCP images were obtained of the abdomen. MIP reconstructions were generated of the bile ducts Comparison: 04/26/2019 MRCP. Also more recent ultrasound and CT abdomen pelvis dated 03/05/2020 Findings: Gallbladder demonstrates a small mucosal fold or small diverticulum or phrygian cap anatomy at the fundus. Is also evident previously, more apparent currently. No gallstones are demonstrated. The common bile duct is mildly dilated, measuring up to 8 mm in diameter. No intraluminal filling defects are demonstrated. On the current study, the main pancreatic demonstrates what appears to be a short segment occlusion within the pancreatic head, with the downstream portion at the ampulla being visible. The upstream pancreatic duct is ectatic, as demonstrated previously although appears more so. Previously, the pancreatic duct was demonstrated to be continuous and patent over its whole length. In the area where the duct appears to be occluded, there is some ill-defined high T2 signal, and there is some generalized enlargement of the pancreatic head. The T2 signal abnormality was not previously apparent. There is subtle slight decrease in T1 signal intensity on the lava images. The pancreatic head enlargement appears more striking than on the prior study, with the AP diameter of the pancreatic head currently 4.6 cm, previously 4.1. A discrete mass is not demonstrated, however. This does not appear to narrow the common bile duct. There is only minimal peripancreatic edema. The liver is unremarkable. The spleen and adrenals are unremarkable. The kidneys demonstrate bilateral cysts. There is a 4.9 cm right ovarian cyst. This is also evident on the previous study. Impression: Focal segmental high-grade stenosis or occlusion of the downstream pancreatic duct within the pancreatic head, new since previous exam. While there is some evidence for acute pancreatitis recent CT scan, this raises concern for possible neoplasm within the pancreatic head. There is some ill-defined T1 and T2 signal abnormality in this area and relative enlargement of the pancreatic head since the previous exam although a discrete mass is not evident. Consider follow-up imaging with contrast sequences and/or endoscopic ultrasound and possible ERCP evaluation. Negative for gallstones or dilated bile ducts Right ovarian cyst, also previously demonstrated and unchanged.
[2020-03-07] MEDS ORDERED: D5NS 1000ml IV ONE (15:38)
[2020-03-07 16:00] VITALS: BP 161/97
[2020-03-07 20:00] VITALS: BP 155/68
[2020-03-08] VITALS: BP 155/80
[2020-03-08] MEDS: Piperacillin/Tazobactam 3.375 GM in NS 110 ML IVPB SCH ×3 (00:01→17:34)
[2020-03-08] MEDS: Morphine Sulfate 2mg/ml Inj(IV/IM USE ONLY) IVP PRN ×5 (00:01→23:30)
--- NOTE | 2020-03-08 01:57 | Cardiology Report ---
APPROVED REPORT EKG Measurement Heart [id number] <Conclusion> Sinus tachycardia Right bundle branch block T wave abnormality, consider lateral ischemia Abnormal ECG
[2020-03-08] MEDS: D5NS 1,000 ML IV SCH ×2 (03:52→14:29)
[2020-03-08 04:59] VITALS: BP 150/73
[2020-03-08 08:00] VITALS: BP 161/96
[2020-03-08] MEDS: Lisinopril 20mg tab ORAL SCH (08:04)
[2020-03-08 12:00] VITALS: BP 151/103
[2020-03-08] MEDS ORDERED: CENTRUM SILVER1 EAC4 PO (12:53)
[2020-03-08] MEDS ORDERED: ADVIL200 M2 ORAL (12:53)
--- NOTE | 2020-03-08 15:21 | General Progress Note ---
Assessment/Plan Problem List: (1) Pancreatitis ICD Codes: K85.9 - Acute pancreatitis, unspecified SNOMED: 63090678 (2) Abdominal pain ICD Codes: R10.9 - Unspecified abdominal pain SNOMED: 49917303 (3) Hypertension ICD Codes: I10 - Hypertension SNOMED: 23260886 Status: stable Assessment/Plan: GI eval ?ercp vs endoscopic US monitor lipase npo if pain or enzymes worsen Subjective ROS Limited/Unobtainable: No Constitutional: Reports: malaise, weakness HEENT: Reports: no symptoms Cardiovascular: Reports: no symptoms Respiratory: Reports: no symptoms Gastrointestinal/Abdominal: Reports: abdominal pain Genitourinary: Reports: no symptoms Neurologic/Psychiatric: Reports: no symptoms Endocrine: Reports: no symptoms Hematologic/Lymphatic: Reports: no symptoms Allergies: Coded Allergies: No Known Allergies (Unverified , 01/29/14) All Systems: reviewed and negative except above Subjective still with abd pain. thinks its 50% better. no nausea or vomiting. MRI noted. Objective Last 24 Hour Vital Signs Date Time Temp Pulse Resp B/P (MAP) Pulse Ox O2 Delivery O2 Flow Rate FiO2 03/08/20 12:00 98.4 102 20 151/103 (119) 99 03/08/20 09:00 Room Air 03/08/20 08:04 96 161/97 03/08/20 08:04 161/97 03/08/20 08:00 97.9 97 20 161/96 (117) 99 03/08/20 05:21 96.8 03/08/20 04:59 96.8 77 20 150/73 (98) 99 03/08/20 00:31 98.0 03/08/20 00:00 98.1 91 20 155/80 (105) 100 03/07/20 21:00 Room Air 03/07/20 20:00 98.1 90 18 155/68 (97) 98 03/07/20 16:00 98.0 88 18 161/97 (118) 100 Intake and Output 03/07/20 03/08/20 19:00 07:00 Intake Total 320 ml 610.0 ml Balance 320 ml 610.0 ml Intake Oral 320 ml 400 ml IV Total 210.0 ml # Voids 4 5 Laboratory Tests 03/08/20 05:45: Lipase 830H Height (Feet): 5 Height (Inches): 8.00 Weight (Pounds): 204 Objective General Appearance: WD/WN, no apparent distress, obese Neck: supple Cardiovascular: regular rhythm Respiratory/Chest: lungs clear Abdomen: normal bowel sounds, non tender, soft Edema: no edema noted Leg (L), no edema noted Leg (R) 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
[2020-03-08 16:00] VITALS: BP 157/95
[2020-03-08] MEDS ORDERED: Milk of Magnesia 30ml Ud ORAL PRN (16:15)
[2020-03-08 20:00] VITALS: BP 154/99
[2020-03-09] VITALS: BP 148/84
[2020-03-09] MEDS: D5NS 1,000 ML IV SCH ×3 (00:05→15:24)
[2020-03-09] MEDS: Piperacillin/Tazobactam 3.375 GM in NS 110 ML IVPB SCH ×3 (00:06→17:14)
[2020-03-09 04:00] VITALS: BP 141/86
[2020-03-09] MEDS: Morphine Sulfate 2mg/ml Inj(IV/IM USE ONLY) IVP PRN ×4 (06:42→22:11)
[2020-03-09 08:11] VITALS: BP 161/111
[2020-03-09] MEDS: Lisinopril 20mg tab ORAL SCH (08:28)
[2020-03-09 12:00] VITALS: BP 152/95
--- NOTE | 2020-03-09 15:16 | General Progress Note ---
Assessment/Plan Problem List: (1) Pancreatitis ICD Codes: K85.9 - Acute pancreatitis, unspecified SNOMED: 02807370 (2) Abdominal pain ICD Codes: R10.9 - Unspecified abdominal pain SNOMED: 24358938 (3) Hypertension ICD Codes: I10 - Hypertension SNOMED: 34307888 Status: stable Assessment/Plan: GI eval ?ercp vs endoscopic US monitor lipase npo if pain or enzymes worsen await labs Subjective ROS Limited/Unobtainable: No Constitutional: Reports: malaise, weakness HEENT: Reports: no symptoms Cardiovascular: Reports: no symptoms Respiratory: Reports: no symptoms Gastrointestinal/Abdominal: Reports: abdominal pain Genitourinary: Reports: no symptoms Neurologic/Psychiatric: Reports: no symptoms Endocrine: Reports: no symptoms Hematologic/Lymphatic: Reports: no symptoms Allergies: Coded Allergies: No Known Allergies (Unverified , 01/29/14) All Systems: reviewed and negative except above Subjective decreased abd pain. still taking pain meds ATC. labs pending. no fever or chills. GI consult pending. Objective Last 24 Hour Vital Signs Date Time Temp Pulse Resp B/P (MAP) Pulse Ox O2 Delivery O2 Flow Rate FiO2 03/09/20 12:00 97.7 90 20 152/95 (114) 100 03/09/20 08:28 104 161/111 03/09/20 08:28 161/111 03/09/20 08:28 161/111 03/09/20 08:11 97.9 104 18 161/111 (128) 100 03/09/20 08:10 Room Air 03/09/20 07:12 97.1 03/09/20 04:00 97.1 84 20 141/86 (104) 100 03/09/20 00:00 97.2 92 20 148/84 (105) 100 03/08/20 21:00 Room Air 03/08/20 20:00 98.1 101 20 154/99 (117) 99 03/08/20 16:00 97.7 100 20 157/95 (115) 99 Intake and Output 03/08/20 03/09/20 19:00 07:00 Intake Total 1597.5 ml 600 ml Balance 1597.5 ml 600 ml Intake Oral 360 ml 500 ml IV Total 1237.5 ml 100 ml # Voids 5 4 Height (Feet): 5 Height (Inches): 8.00 Weight (Pounds): 204 Objective General Appearance: WD/WN, no apparent distress, obese Neck: supple Cardiovascular: regular rhythm Respiratory/Chest: lungs clear Abdomen: normal bowel sounds, non tender, soft Edema: no edema noted Leg (L), no edema noted Leg (R) 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
[2020-03-09 16:11] VITALS: BP 146/82
[2020-03-09 20:00] VITALS: BP 125/78
--- NOTE | 2020-03-09 23:33 | General Progress Note ---
Assessment/Plan Status: stable Assessment/Plan: GI CONSULT Assessment - recurrent pancreatitis - abnormality at pancreatic head on MRI - r/o CA Recommendations - Check IgG4 to r/o autoimmune pancreatitis - Check tumor markers - needs endoscopic ultrasound - unable to book for Fri due to lack of anesthesia time - will keep NPO after MN, in case a space opens up, otherwise Friday EUS Thank you. Radha Rondon MD Subjective Allergies: Coded Allergies: No Known Allergies (Unverified , 01/29/14) Objective Last 24 Hour Vital Signs Date Time Temp Pulse Resp B/P (MAP) Pulse Ox O2 Delivery O2 Flow Rate FiO2 03/09/20 16:11 98.1 98 18 146/82 (103) 100 03/09/20 12:00 97.7 90 20 152/95 (114) 100 03/09/20 08:28 104 161/111 03/09/20 08:28 161/111 03/09/20 08:28 161/111 03/09/20 08:11 97.9 104 18 161/111 (128) 100 03/09/20 08:10 Room Air 03/09/20 07:12 97.1 03/09/20 04:00 97.1 84 20 141/86 (104) 100 03/09/20 00:00 97.2 92 20 148/84 (105) 100 Intake and Output 03/08/20 03/09/20 19:00 07:00 Intake Total 1597.5 ml 600 ml Balance 1597.5 ml 600 ml Intake Oral 360 ml 500 ml IV Total 1237.5 ml 100 ml # Voids 5 4 Height (Feet): 5 Height (Inches): 8.00 Weight (Pounds): 204 Radha Rondon MD Mar 09, 2020 23:33
[2020-03-10] VITALS: BP 137/81
[2020-03-10] MEDS: Piperacillin/Tazobactam 3.375 GM in NS 110 ML IVPB SCH ×2 (01:16→09:05)
[2020-03-10 04:00] VITALS: BP 153/85
--- NOTE | 2020-03-10 05:15 | Consultation ---
DATE OF CONSULTATION: 03/09/2020 GASTROENTEROLOGY CONSULTATION CONSULTING PHYSICIAN: Radha Rondon M.D. CHIEF COMPLAINT: I was asked to see this patient by Dr. David Tomlinson for evaluation of pancreatitis. HISTORY OF PRESENT ILLNESS: The patient is a pleasant 59-year-old woman who was in her usual state of health until she noticed a 2-day history of worsening epigastric abdominal pain resembling her previous episodes of pancreatitis. The patient has had recurrent bouts of pancreatitis in the last few years and the workup was negative. On this occasion, the lipase was elevated to 600. CT scan showed some stranding around the pancreas consistent with pancreatitis. There was subsequently an MRI and it was done on the pancreas and MRI has shown focal segmental high-grade stenosis or occlusion of the pancreatic duct within the pancreatic head, which appears to be new compared to previous examination. Concern for neoplasm is raised and therefore recommendation has been made for further diagnostic evaluation. The patient feels better now after a period of being kept on bowel rest. She is on a clear liquid diet. The patient does not drink any alcohol. The gallbladder does not show any gallstones on MRI imaging. The common bile duct measures mildly dilated to 8 mm. PAST MEDICAL HISTORY: Remarkable for history of hypertension. PAST SURGICAL HISTORY: Status post . FAMILY HISTORY: Positive for hypertension. SOCIAL HISTORY: The patient smokes 2 to 3 cigarettes a day, but does not use any alcohol. ALLERGIES: None. REVIEW OF SYSTEMS: Otherwise negative. PHYSICAL EXAMINATION: GENERAL: The patient is a pleasant woman, seen in her room, in no distress. HEENT: Normocephalic and atraumatic. Sclerae are anicteric. Oropharynx is clear. NECK: Supple. CHEST: Clear to auscultation. CARDIOVASCULAR: Revealed a regular rate. ABDOMEN: Soft and nontender and obese. There is no organomegaly. EXTREMITIES: Revealed. No edema. LABORATORY AND DIAGNOSTIC DATA: Laboratory data were noted. CT scan and MRI imaging were noted. ASSESSMENT: This patient presents with another episode of pancreatitis, which is resolving uneventfully. However, the imaging studies of the pancreas and MRI are concerning for possible anatomical change in the area. Differential diagnosis include malignancy. Therefore, I will order tumor markers to be drawn tomorrow morning. In addition, an endoscopic ultrasound can also be done to evaluate the pancreatic parenchyma in this region. If there are any abnormalities suspected, then a fine needle aspiration test to be done. Any of these to be done to evaluate the area, but the patient pancreatitis held off until the pancreas has improved. The other possibility is autoimmune pancreatitis, which can sometimes result in mass-like lesion and also recurrent pancreatitis. Her IgG will be checked as well as . RECOMMENDATIONS: 1. Continue clear liquid diet and advance slowly as tolerated. 2. Follow laboratory parameters and exam. 3. Check the pancreatic tumor markers including CEA and CA 19-9. 4. Check the IgG4. Thank you for asking me to participate in the care of this patient. Radha Rondon M.D. DR: VIVIANA JOB#: [id number] CC:
[2020-03-10 07:32] LABS: ALANINE AMINOTRANSFERASE 56 U/L (12-78); ALBUMIN 3.9 G/DL (3.4-5.0); ALBUMIN/GLOBULIN RATIO 0.9 (1.0-2.7); ALKALINE PHOSPHATASE 56 U/L (46-116); ANION GAP 10 mmol/L (5-15); ASPARTATE AMINO TRANSFERASE 30 U/L (15-37); BILIRUBIN,TOTAL 0.6 MG/DL (0.2-1.0); BLOOD UREA NITROGEN 6 mg/dL (7-18); CALCIUM 9.1 MG/DL (8.5-10.1); CARBON DIOXIDE 27 MMOL/L (21-32); CHLORIDE 103 MMOL/L (98-107); CREATININE 0.9 MG/DL (0.55-1.30); POTASSIUM 3.2 MMOL/L (3.5-5.1); SODIUM 140 MMOL/L (136-145)
[2020-03-10 08:00] VITALS: BP 149/95
[2020-03-10] MEDS: Lisinopril 20mg tab ORAL SCH (09:05)
--- NOTE | 2020-03-10 10:00 | General Progress Note ---
Assessment/Plan Problem List: (1) Pancreatitis ICD Codes: K85.9 - Acute pancreatitis, unspecified SNOMED: 18645319 (2) Abdominal pain ICD Codes: R10.9 - Unspecified abdominal pain SNOMED: 74266163 (3) Hypertension ICD Codes: I10 - Hypertension SNOMED: 77497956 Status: stable Assessment/Plan: GI eval noted endoscopic US monitor lipase ivf pain rx Subjective ROS Limited/Unobtainable: No Constitutional: Reports: no symptoms HEENT: Reports: no symptoms Cardiovascular: Reports: no symptoms Respiratory: Reports: no symptoms Gastrointestinal/Abdominal: Reports: abdominal pain Genitourinary: Reports: no symptoms Neurologic/Psychiatric: Reports: no symptoms Endocrine: Reports: no symptoms Hematologic/Lymphatic: Reports: no symptoms Allergies: Coded Allergies: No Known Allergies (Unverified , 01/29/14) All Systems: reviewed and negative except above Subjective decreased abd pain. still taking pain meds ATC. lipase trending down. taking po pain meds. GI appreciated. Objective Last 24 Hour Vital Signs Date Time Temp Pulse Resp B/P (MAP) Pulse Ox O2 Delivery O2 Flow Rate FiO2 03/10/20 09:05 89 149/95 03/10/20 09:05 149/95 03/10/20 04:00 98.0 96 18 153/85 (107) 100 03/10/20 00:00 98.2 83 18 137/81 (99) 98 03/09/20 21:00 Room Air 03/09/20 20:00 98.0 95 18 125/78 (94) 100 03/09/20 16:11 98.1 98 18 146/82 (103) 100 03/09/20 12:00 97.7 90 20 152/95 (114) 100 Intake and Output 03/09/20 03/10/20 19:00 07:00 Intake Total 1397.5 ml Output Total 1200 ml Balance 1397.5 ml -1200 ml Intake Oral 400 ml IV Total 997.5 ml Output Urine Total 1200 ml # Voids 3 3 Laboratory Tests 03/10/20 05:25: Sodium Level 140, Potassium Level 3.2L, Chloride Level 103, Carbon Dioxide Level 27, Anion Gap 10, Blood Urea Nitrogen 6L, Creatinine 0.9, Estimat Glomerular Filtration Rate > 60, Glucose Level 139H, Calcium Level 9.1, Total Bilirubin 0.6, Aspartate Amino Transf (AST/SGOT) 30, Alanine Aminotransferase ( ALT/SGPT) 56, Alkaline Phosphatase 56, Total Protein 8.3H, Albumin 3.9, Globulin 4.4, Albumin/Globulin Ratio 0.9L, Lipase 531H, Carcinoembryonic Antigen [Pending], CA 19-9 Antigen [Pending], Immunoglobulin G [Pending], Immunoglobulin G1 [Pending], Immunoglobulin G2 [Pending], Immunoglobulin G3 [ Pending], Immunoglobulin G4 [Pending], Anti-Nuclear Antibody Screen [Pending] Height (Feet): 5 Height (Inches): 8.00 Weight (Pounds): 204 Objective General Appearance: WD/WN, no apparent distress, obese Neck: supple Cardiovascular: regular rhythm Respiratory/Chest: lungs clear Abdomen: normal bowel sounds, non tender, soft Edema: no edema noted Leg (L), no edema noted Leg (R) 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
[2020-03-10 12:00] VITALS: BP 152/94
[2020-03-10] MEDS: D5NS 1,000 ML IV SCH (12:18)
--- NOTE | 2020-03-10 22:45 | General Progress Note ---
Assessment/Plan Status: stable Assessment/Plan: Assessment - recurrent pancreatitis - abnormality at pancreatic head on MRI - r/o CA Recommendations - Check IgG4 to r/o autoimmune pancreatitis - Check tumor markers - needs endoscopic ultrasound - unable to book for Fri due to lack of anesthesia time - will keep NPO Patient left AMA subsequent to my visit Subjective Allergies: Coded Allergies: No Known Allergies (Unverified , 01/29/14) Subjective Better still with some mild pains NPO for possible EUS today, pending GI lab time Objective Last 24 Hour Vital Signs Date Time Temp Pulse Resp B/P (MAP) Pulse Ox O2 Delivery O2 Flow Rate FiO2 03/10/20 12:00 98.2 64 17 152/94 (113) 99 03/10/20 09:05 89 149/95 03/10/20 09:05 149/95 03/10/20 09:00 Room Air 03/10/20 08:00 97.9 89 17 149/95 (113) 100 03/10/20 04:00 98.0 96 18 153/85 (107) 100 03/10/20 00:00 98.2 83 18 137/81 (99) 98 Intake and Output 03/09/20 03/10/20 19:00 07:00 Intake Total 1397.5 ml Output Total 1200 ml Balance 1397.5 ml -1200 ml Intake Oral 400 ml IV Total 997.5 ml Output Urine Total 1200 ml # Voids 3 3 Laboratory Tests 03/10/20 05:25: Sodium Level 140, Potassium Level 3.2L, Chloride Level 103, Carbon Dioxide Level 27, Anion Gap 10, Blood Urea Nitrogen 6L, Creatinine 0.9, Estimat Glomerular Filtration Rate > 60, Glucose Level 139H, Calcium Level 9.1, Total Bilirubin 0.6, Aspartate Amino Transf (AST/SGOT) 30, Alanine Aminotransferase ( ALT/SGPT) 56, Alkaline Phosphatase 56, Total Protein 8.3H, Albumin 3.9, Globulin 4.4, Albumin/Globulin Ratio 0.9L, Lipase 531H, Carcinoembryonic Antigen [Pending], CA 19-9 Antigen [Pending], Immunoglobulin G [Pending], Immunoglobulin G1 [Pending], Immunoglobulin G2 [Pending], Immunoglobulin G3 [ Pending], Immunoglobulin G4 [Pending], Anti-Nuclear Antibody Screen [Pending] Height (Feet): 5 Height (Inches): 8.00 Weight (Pounds): 204 Objective WDWN NCAT supple CTA RR abd soft no edema Radha Rondon MD Mar 10, 2020 22:45
--- NOTE | 2020-03-12 09:29 | Discharge Summary ---
Discharge Summary Discharge Summary _ DATE OF ADMISSION: 03/05/2020 DATE OF DISCHARGE: 03/10/2020 ADMITTING MD: Dr. David Tomlinson CALL CENTER OPERATIONS MANAGER: Dr. Radha Rondon BRIEF HOSPITAL COURSE: The patient is a 59-year-old female, with history of hypertensive heart disease , presented with complaints of 2 days of worsening abdominal pain. She had intermittent abdominal pain for the last several years. She had a prior history of pancreatitis. She denied any fever, chills, chest pain, shortness of diarrhea or any dysuria. Pain is located in the epigastrium, sharp in nature. She was also vomiting. Upon evaluation in the ED, blood pressure was 158/100, heart rate 125. She was afebrile and was saturating 97% on room air. She was actively vomiting in the emergency department. Blood work did not show any leukocytosis. Hemoglobin and hematocrit were stable. Sodium level was 139. Potassium 3.5. Chloride 99. BUN 11 and creatinine 1.0. LFTs were normal. Troponin was negative. Lipase was elevated to 624. Abdominal ultrasound showed dense liver, distended gallbladder, no acute cholecystitis, prominent pancreatic, pancreatic tail not well seen. CT scan of the abdomen and pelvis with IV contrast showed mild stranding around the pancreas. Slightly prominent pancreatic duct, findings consistent with acute pancreatitis. EKG was in sinus tachycardia at a rate of 120 with normal axis, right bundle branch block, no ectopy. She was given IV pain medication and antiemetics. She was given IV hydration. She was admitted for acute pancreatitis. She was admitted to medical floor. She was placed on bowel rest. She was given IV hydration. She was given pain management. MRI of the abdomen showed focal segmental high-grade stenosis or occlusion of the downstream pancreatic duct within the pancreatic head, which appears to be new compared to previous examination. Evidence of acute pancreatitis, concern for possible neoplasm within the pancreatic head. Ill-defined signal abnormality of the pancreatic head. Negative for gallstones or dilated bile ducts. Right ovarian cyst. The following day, she was feeling better, she was started on clear liquid diet. GI specialist was consulted. Tumor markers ordered. Recommended endoscopic ultrasound and possible fine-needle aspiration to evaluate pancreatic parenchyma , which could be done and postponed until pancreatitis resolves. Another possibility is autoimmune pancreatitis which can sometimes result in masslike lesion and also recurrent pancreatitis. Lipase was trended. Lipase was trending down, she had decreased abdominal pain, however still taking pain medications [id number]. She is able to tolerate p.o. medications. CEA was 10. CA 19-9 antigen still pending. ELIANE positive. IgG results still pending. Patient was planned to undergo endoscopic ultrasound next week, however full treatment was not carried out as patient left AGAINST MEDICAL ADVICE. FINAL DIAGNOSES: Acute pancreatitis, resolving Abnormality at pancreatic head on MRI Hypertension DISPOSITION: Patient left AMA. I have been assigned to complete a discharge summary on this account, I was not involved with the patient's management.--FAWN Villela Jacqueline Robles NP Mar 12, 2020 09:29
== END 2020-03-10 13:27 | disposition left against medical advice (07) | DRG 282 ==
LOC: EMR 08:44 → 4E 11:49 → EDBEDREQ 12:02
DX: K85.90 Acute pancreatitis without necrosis or infection, unspecified (principal); I10 Essential (primary) hypertension; N39.0 Urinary tract infection, site not specified; F17.200 Nicotine dependence, unspecified, uncomplicated
CPT/HCPCS: 36415; 74177; 74181; 76700; 80053; 81003; 82378; 82784; 82787; 83690; 84484; 85025; 86039; 87040; 93005; 96361; 96365; 96375; 96376; 99285; G0480; J2405; J7030